=== PATIENT | male | born 1955 | race Caucasian/White ===

== ENCOUNTER 2016-12-03 20:18 | Emergency (ER) | payer MEDICAID, OTHER ==
[~2016-12-03 20:18] MED LIST: ALEV220C2 PO; LEVO500T PO; PERCOCET PO; SENN8.6T7 PO
[2016-12-03] MEDS ORDERED: IBUPROFEN 600 MG TAB As Ordered ONE (22:17)
[2016-12-03] MEDS ORDERED: MOXIFLOXACIN 400 MG TAB As Ordered ONE (22:17)
[2016-12-03] MEDS ORDERED: ALBUTEROL 90 MCG/ACT 8GM HFA INHALER As Ordered ONE (22:17)
--- NOTE | 2016-12-03 22:28 | EDDOCDS ---
Physician Documentation [facility] Name: Jg Hsu Age: 61 yrs Sex: Male : 1955 Arrival Date: 12/03/2016 Time: 20:18 Bed 13 Private MD: Finesse Gibbons A. Disposition: 12/03/16 22:14 Discharged to Home/Self Care. Impression: Acute bronchitis, Cough. - Condition is Stable. - Discharge Instructions: Acute Bronchitis, Cough, Adult. - Prescriptions for Ibuprofen 600 mg Oral Tablet - take 1 tablet by ORAL route every 6 hours As needed take with food; 30 tablet. Moxifloxacin 400 mg Oral Tablet - take 1 tablet by ORAL route once daily; 7 tablet. Mucinex 600 mg - take 1 tablet by ORAL route 2 times per day; 30 tablet. - Medication Reconciliation, Local Pharmacy Hours form. - Follow up: Finesse Gibbons; When: 4 - 5 days; Reason: Recheck today's complaints, Continuance of care. - Problem is an ongoing problem. - Symptoms are unchanged. - Notes: albuteral 2 puffs every 4 hours as needed cough/short of breath Historical: - Allergies: No known drug Allergies; - Home Meds: 1. none - PMHx: bulging disc; - PSHx: Carpal Tunnel Repair- Right; Prostatectomy; - Social history: Smoking status: Patient states former smoker of tobacco. No barriers to communication noted, The patient speaks fluent Armenian, Speaks appropriately for age. - Family history: Not pertinent. - : The pt / caregiver states he / she is not on anticoagulants. Home medication list is obtained from the patient. - Exposure Risk Screening:: None identified. Vital Signs: 12/03 20:20 BP 154 / 92; Pulse 108; Resp 20; Temp 101.3(O); Pulse Ox 98% ; Weight 99.79 kg / 220 cmb lbs (M); Height 5 ft. 8 in. (172.72 cm); Pain 9/10; 20:20 Body Mass Index 33.45 (99.79 kg, 172.72 cm) cmb MDM: 22:13 Ventolin Inhaler 2 puffs Inhalation once ordered. ke 22:13 Ibuprofen 600 mg PO once ordered. ke 22:13 Moxifloxacin 400 mg PO once ordered. ke Administered Medications: 22:23 Drug: Ventolin 2 puffs [Ventolin HFA 90 mcg/actuation aerosol inhaler (2 puffs)] Route: tm5 Inhalation; 22:23 Follow up: Response: Pt left department before re-evaluation is appropriate tm5 22:23 Drug: Ibuprofen 600 mg [ibuprofen 600 mg tablet (1 tabs)] Route: PO; tm5 22:23 Follow up: Response: Pt left department before re-evaluation is appropriate tm5 22:23 Drug: Moxifloxacin 400 mg [moxifloxacin 400 mg tablet (1 tabs)] Route: PO; tm5 22:23 Follow up: Response: Pt left department before re-evaluation is appropriate tm5 Signatures: Suresh Givens RN RN cz Elsner, Karl, FNP PRODUCTION SUPPORT DEVELOPER Liliana Arellano RN RN tm5 MTDD
--- NOTE | 2016-12-03 22:28 | EDDOCDS ---
Nurse's Notes [facility] Name: Jg Hsu Age: 61 yrs Sex: Male : 1955 Arrival Date: 12/03/2016 Time: 20:18 Bed 13 Private MD: Finesse Gibbons A. Diagnosis: Acute bronchitis;Cough Presentation: 12/03 20:40 Presenting complaint: Patient states: he has a sinus headache that started 10 days ago cz was seen at Urgent put on medications no relief with medications. also has bulging disc C-3 and is having head pressure and pain,.also has a sore throat. Risk Factors No acute neurological deficit is noted. Adult Sepsis Screening: The patient does not have new or worsening altered mentation. Patient's respiratory rate is less than 22. Systolic blood pressure is greater than 100. Patient has a qSOFA score of 0- Negative Sepsis Screen. Suicide/Homicide risk assessment- the patient denies having any suicidal and/or homicidal ideations and does not present with any other emotional, behavioral or mental health complaints. Status: Patient is not a funeral service licensee or dependent. Transition of care: patient was not received from another setting of care. 20:40 Acuity: RHODA Level 3 cz 20:40 Method Of Arrival: Walkin/Carried/Asstd cz Triage Assessment: 20:44 General: Appears uncomfortable. Pain: Pain currently is 10 out of 10 on a pain scale. cz Pt Declines HIV testing. 22:27 Musculoskeletal: Reports pain in neck. tm5 Historical: - Allergies: No known drug Allergies; - Home Meds: 1. none - PMHx: bulging disc; - PSHx: Carpal Tunnel Repair- Right; Prostatectomy; - Social history: Smoking status: Patient states former smoker of tobacco. No barriers to communication noted, The patient speaks fluent Arabic, Speaks appropriately for age. - Family history: Not pertinent. - : The pt / caregiver states he / she is not on anticoagulants. Home medication list is obtained from the patient. - Exposure Risk Screening:: None identified. Screenin:00 Screening information is obtained from the patient. Fall risk: No risks identified. tm5 Assistance ADL's: requires no assistance with activities of daily living. Abuse/DV Screen: The patient / caregiver reports he/she is: not in a situation that causes fear, pain or injury. Nutritional screening: No deficits noted. Advance Directives: There is no active DNR order. home support is adequate. Assessment: 22:00 General: Appears uncomfortable, Behavior is appropriate for age, cooperative. tm5 22:00 Pain: Location: neck & headache Pain currently is 6 out of 10 on a pain scale. Quality tm5 of pain is described as throbbing. Neurological: Level of Consciousness is awake, alert, Oriented to person, place, time, Reports weakness. Respiratory: Airway is patent Respiratory effort is even, unlabored, Respiratory pattern is regular, symmetrical, Breath sounds are clear bilaterally. GI: No deficits noted. : No deficits noted. Derm: Skin is pink, warm & dry. normal. Vital Signs: 20:20 BP 154 / 92; Pulse 108; Resp 20; Temp 101.3(O); Pulse Ox 98% ; Weight 99.79 kg (M); cmb Height 5 ft. 8 in. (172.72 cm); Pain 9/10; 20:20 Body Mass Index 33.45 (99.79 kg, 172.72 cm) cmb Vitals: 20:20 Log In Time: December 03, 2016 at 20:18. cmb ED Course: 20:19 Patient visited by Loni Al. cmb 20:19 Finesse Gibbons is Private Physician. cmb 20:19 Patient moved to Waiting cmb 20:22 Patient moved to Pre RCE cmb 20:42 Triage Initiated cz 21:50 Michele Pearl FNP is [facility]. ke 21:50 Patient visited by Michele Pearl FNP. ke 21:50 Patient visited by Michele Pearl FNP. ke 21:50 Patient moved to [facility] 22:00 The patient / caregiver is instructed regarding the plan of care and ED course. tm5 22:00 No IV's were initiated during this patient's visit. No procedures done that require tm5 assistance. 22:13 Finesse Gibbons is Referral Physician. ke 22:26 Patient visited by Liliana Garber RN. tm5 Administered Medications: 22:23 Drug: Ventolin 2 puffs [Ventolin HFA 90 mcg/actuation aerosol inhaler (2 puffs)] Route: tm5 Inhalation; 22:23 Follow up: Response: Pt left department before re-evaluation is appropriate tm5 22:23 Drug: Ibuprofen 600 mg [ibuprofen 600 mg tablet (1 tabs)] Route: PO; tm5 22:23 Follow up: Response: Pt left department before re-evaluation is appropriate tm5 22:23 Drug: Moxifloxacin 400 mg [moxifloxacin 400 mg tablet (1 tabs)] Route: PO; tm5 22:23 Follow up: Response: Pt left department before re-evaluation is appropriate tm5 Order Results: There are currently no results for this order. Outcome: 22:00 Discharge Assessment:. tm5 22:14 Discharge ordered by Provider. ke 22:26 Discharge Assessment: Patient awake, alert and oriented x 3. No cognitive and/or tm5 functional deficits noted. Patient verbalized understanding of disposition instructions. patient administered narcotics - no. The following High Risk Discharge criteria are identified: None. Discharged to home ambulatory. Condition: good Condition: stable. Discharge instructions given to patient, Instructed on discharge instructions, follow up and referral plans. medication usage, Demonstrated understanding of instructions, medications, Pt was receptive of discharge instructions/ teaching. Prescriptions given X 3. No special radiology studies were completed. Property :Personal belongings accompany Pt. 22:27 Patient left the ED. tm5 Signatures: Suresh Givens RN RN cz Michele Pearl, SKIDDER RUNNER SKIDDER RUNNER Loni Joe cmb Dhaval Desir,VIRAJ RN mb9 Liliana Garber RN RN tm5 Corrections: (The following items were deleted from the chart) 20:21 20:20 BP 154 / 92; Pulse 108bpm; Resp 20bpm; Pulse Ox 98%; Temp 101.3F Oral; Height 5 cmb ft. 8 in.; Pain 9/10; cmb 20:45 20:40 Presenting complaint: Patient states: he has a sinus headache that started 10 cz days ago was seen at Urgent put on medications no relief with medications. also has bulging disc C-3 and is having head pressure and pain cz MTDD
--- NOTE | 2016-12-05 23:28 | EDDOCDS ---
Physician Documentation [facility] Name: Jg Hsu Age: 61 yrs Sex: Male : 1955 Arrival Date: 12/03/2016 Time: 20:18 Bed 13 Private MD: Finesse Gibbons A. Disposition: 12/03/16 22:14 Discharged to Home/Self Care. Impression: Acute bronchitis, Cough. - Condition is Stable. - Discharge Instructions: Acute Bronchitis, Cough, Adult. - Prescriptions for Ibuprofen 600 mg Oral Tablet - take 1 tablet by ORAL route every 6 hours As needed take with food; 30 tablet. Moxifloxacin 400 mg Oral Tablet - take 1 tablet by ORAL route once daily; 7 tablet. Mucinex 600 mg - take 1 tablet by ORAL route 2 times per day; 30 tablet. - Medication Reconciliation, Local Pharmacy Hours form. - Follow up: Finesse Gibbons; When: 4 - 5 days; Reason: Recheck today's complaints, Continuance of care. - Problem is an ongoing problem. - Symptoms are unchanged. - Notes: albuteral 2 puffs every 4 hours as needed cough/short of breath Historical: - Allergies: No known drug Allergies; - Home Meds: 1. none - PMHx: bulging disc; - PSHx: Carpal Tunnel Repair- Right; Prostatectomy; - Social history: Smoking status: Patient states former smoker of tobacco. No barriers to communication noted, The patient speaks fluent Macedonian, Speaks appropriately for age. - Family history: Not pertinent. - : The pt / caregiver states he / she is not on anticoagulants. Home medication list is obtained from the patient. - Exposure Risk Screening:: None identified. Vital Signs: 12/03 20:20 BP 154 / 92; Pulse 108; Resp 20; Temp 101.3(O); Pulse Ox 98% ; Weight 99.79 kg / 220 cmb lbs (M); Height 5 ft. 8 in. (172.72 cm); Pain 9/10; 20:20 Body Mass Index 33.45 (99.79 kg, 172.72 cm) cmb MDM: 22:13 Ventolin Inhaler 2 puffs Inhalation once ordered. ke 22:13 Ibuprofen 600 mg PO once ordered. ke 22:13 Moxifloxacin 400 mg PO once ordered. ke 12/04 10:06 T-Sheet-- Draft Copy was scanned into [employer] and attached to record. gb Administered Medications: 12/03 22:23 Drug: Ventolin 2 puffs [Ventolin HFA 90 mcg/actuation aerosol inhaler (2 puffs)] Route: tm5 Inhalation; 22:23 Follow up: Response: Pt left department before re-evaluation is appropriate tm5 22:23 Drug: Ibuprofen 600 mg [ibuprofen 600 mg tablet (1 tabs)] Route: PO; tm5 22:23 Follow up: Response: Pt left department before re-evaluation is appropriate tm5 22:23 Drug: Moxifloxacin 400 mg [moxifloxacin 400 mg tablet (1 tabs)] Route: PO; tm5 22:23 Follow up: Response: Pt left department before re-evaluation is appropriate tm5 Signatures: Suresh Givens, RN RN Vijaya Burrows, Reg Reg gb Michele Pearl, STRADDLE TRUCK DRIVER STRADDLE TRUCK DRIVER Liliana Arellano RN RN tm5 The chart was reviewed and I authenticate all verbal orders and agree with the evaluation and treatment provided.Attachments: 12/04 10:06 T-Sheet-- Draft Copy gb Chart Complete MTDD
--- NOTE | 2016-12-05 23:28 | EDDOCDS ---
Physician Documentation [facility] Name: Jg Hsu Age: 61 yrs Sex: Male : 1955 Arrival Date: 12/03/2016 Time: 20:18 Bed 13 Private MD: Finesse Gibbons A. Disposition: 12/03/16 22:14 Discharged to Home/Self Care. Impression: Acute bronchitis, Cough. - Condition is Stable. - Discharge Instructions: Acute Bronchitis, Cough, Adult. - Prescriptions for Ibuprofen 600 mg Oral Tablet - take 1 tablet by ORAL route every 6 hours As needed take with food; 30 tablet. Moxifloxacin 400 mg Oral Tablet - take 1 tablet by ORAL route once daily; 7 tablet. Mucinex 600 mg - take 1 tablet by ORAL route 2 times per day; 30 tablet. - Medication Reconciliation, Local Pharmacy Hours form. - Follow up: Finesse Gibbons; When: 4 - 5 days; Reason: Recheck today's complaints, Continuance of care. - Problem is an ongoing problem. - Symptoms are unchanged. - Notes: albuteral 2 puffs every 4 hours as needed cough/short of breath Historical: - Allergies: No known drug Allergies; - Home Meds: 1. none - PMHx: bulging disc; - PSHx: Carpal Tunnel Repair- Right; Prostatectomy; - Social history: Smoking status: Patient states former smoker of tobacco. No barriers to communication noted, The patient speaks fluent Serbian, Speaks appropriately for age. - Family history: Not pertinent. - : The pt / caregiver states he / she is not on anticoagulants. Home medication list is obtained from the patient. - Exposure Risk Screening:: None identified. Vital Signs: 12/03 20:20 BP 154 / 92; Pulse 108; Resp 20; Temp 101.3(O); Pulse Ox 98% ; Weight 99.79 kg / 220 cmb lbs (M); Height 5 ft. 8 in. (172.72 cm); Pain 9/10; 20:20 Body Mass Index 33.45 (99.79 kg, 172.72 cm) cmb MDM: 22:13 Ventolin Inhaler 2 puffs Inhalation once ordered. ke 22:13 Ibuprofen 600 mg PO once ordered. ke 22:13 Moxifloxacin 400 mg PO once ordered. ke 12/04 10:06 T-Sheet-- Draft Copy was scanned into [employer] and attached to record. gb Administered Medications: 12/03 22:23 Drug: Ventolin 2 puffs [Ventolin HFA 90 mcg/actuation aerosol inhaler (2 puffs)] Route: tm5 Inhalation; 22:23 Follow up: Response: Pt left department before re-evaluation is appropriate tm5 22:23 Drug: Ibuprofen 600 mg [ibuprofen 600 mg tablet (1 tabs)] Route: PO; tm5 22:23 Follow up: Response: Pt left department before re-evaluation is appropriate tm5 22:23 Drug: Moxifloxacin 400 mg [moxifloxacin 400 mg tablet (1 tabs)] Route: PO; tm5 22:23 Follow up: Response: Pt left department before re-evaluation is appropriate tm5 Signatures: Suresh Givens, RN RN Vijaya Burrows, Reg Reg gb Michele Pearl, DEVELOPMENT TEAM LEAD DEVELOPMENT TEAM LEAD Liliana Arellano RN RN tm5 The chart was reviewed and I authenticate all verbal orders and agree with the evaluation and treatment provided.Attachments: 12/04 10:06 T-Sheet-- Draft Copy gb Chart Complete MTDD
--- NOTE | 2016-12-05 23:28 | EDDOCDS ---
Nurse's Notes [facility] Name: Jg Hsu Age: 61 yrs Sex: Male : 1955 Arrival Date: 12/03/2016 Time: 20:18 Bed 13 Private MD: Finesse Gibbons A. Diagnosis: Acute bronchitis;Cough Presentation: 12/03 20:40 Presenting complaint: Patient states: he has a sinus headache that started 10 days ago cz was seen at Urgent put on medications no relief with medications. also has bulging disc C-3 and is having head pressure and pain,.also has a sore throat. Risk Factors No acute neurological deficit is noted. Adult Sepsis Screening: The patient does not have new or worsening altered mentation. Patient's respiratory rate is less than 22. Systolic blood pressure is greater than 100. Patient has a qSOFA score of 0- Negative Sepsis Screen. Suicide/Homicide risk assessment- the patient denies having any suicidal and/or homicidal ideations and does not present with any other emotional, behavioral or mental health complaints. Status: Patient is not a automotive service manager or dependent. Transition of care: patient was not received from another setting of care. 20:40 Acuity: RHODA Level 3 cz 20:40 Method Of Arrival: Walkin/Carried/Asstd cz Triage Assessment: 20:44 General: Appears uncomfortable. Pain: Pain currently is 10 out of 10 on a pain scale. cz Pt Declines HIV testing. 22:27 Musculoskeletal: Reports pain in neck. tm5 Historical: - Allergies: No known drug Allergies; - Home Meds: 1. none - PMHx: bulging disc; - PSHx: Carpal Tunnel Repair- Right; Prostatectomy; - Social history: Smoking status: Patient states former smoker of tobacco. No barriers to communication noted, The patient speaks fluent Upper Sorbian, Speaks appropriately for age. - Family history: Not pertinent. - : The pt / caregiver states he / she is not on anticoagulants. Home medication list is obtained from the patient. - Exposure Risk Screening:: None identified. Screenin:00 Screening information is obtained from the patient. Fall risk: No risks identified. tm5 Assistance ADL's: requires no assistance with activities of daily living. Abuse/DV Screen: The patient / caregiver reports he/she is: not in a situation that causes fear, pain or injury. Nutritional screening: No deficits noted. Advance Directives: There is no active DNR order. home support is adequate. Assessment: 22:00 General: Appears uncomfortable, Behavior is appropriate for age, cooperative. tm5 22:00 Pain: Location: neck & headache Pain currently is 6 out of 10 on a pain scale. Quality tm5 of pain is described as throbbing. Neurological: Level of Consciousness is awake, alert, Oriented to person, place, time, Reports weakness. Respiratory: Airway is patent Respiratory effort is even, unlabored, Respiratory pattern is regular, symmetrical, Breath sounds are clear bilaterally. GI: No deficits noted. : No deficits noted. Derm: Skin is pink, warm & dry. normal. Vital Signs: 20:20 BP 154 / 92; Pulse 108; Resp 20; Temp 101.3(O); Pulse Ox 98% ; Weight 99.79 kg (M); cmb Height 5 ft. 8 in. (172.72 cm); Pain 9/10; 20:20 Body Mass Index 33.45 (99.79 kg, 172.72 cm) cmb Vitals: 20:20 Log In Time: December 03, 2016 at 20:18. cmb ED Course: 20:19 Patient visited by Loni Al. cmb 20:19 Finesse Gibbons is Private Physician. cmb 20:19 Patient moved to Waiting cmb 20:22 Patient moved to Pre RCE cmb 20:42 Triage Initiated cz 21:50 Michele Pearl FNP is [facility]. ke 21:50 Patient visited by Michele Pearl FNP. ke 21:50 Patient visited by Michele Pearl FNP. ke 21:50 Patient moved to [facility] 22:00 The patient / caregiver is instructed regarding the plan of care and ED course. tm5 22:00 No IV's were initiated during this patient's visit. No procedures done that require tm5 assistance. 22:13 Finesse Gibbons is Referral Physician. ke 22:26 Patient visited by Liliana Garber RN. tm5 12/04 10:06 T-Sheet-- Draft Copy was scanned into [employer] and attached to record. gb Administered Medications: 12/03 22:23 Drug: Ventolin 2 puffs [Ventolin HFA 90 mcg/actuation aerosol inhaler (2 puffs)] Route: tm5 Inhalation; 22:23 Follow up: Response: Pt left department before re-evaluation is appropriate tm5 22:23 Drug: Ibuprofen 600 mg [ibuprofen 600 mg tablet (1 tabs)] Route: PO; tm5 22:23 Follow up: Response: Pt left department before re-evaluation is appropriate tm5 22:23 Drug: Moxifloxacin 400 mg [moxifloxacin 400 mg tablet (1 tabs)] Route: PO; tm5 22:23 Follow up: Response: Pt left department before re-evaluation is appropriate tm5 Order Results: There are currently no results for this order. Outcome: 22:00 Discharge Assessment:. tm5 22:14 Discharge ordered by Provider. ke 22:26 Discharge Assessment: Patient awake, alert and oriented x 3. No cognitive and/or tm5 functional deficits noted. Patient verbalized understanding of disposition instructions. patient administered narcotics - no. The following High Risk Discharge criteria are identified: None. Discharged to home ambulatory. Condition: good Condition: stable. Discharge instructions given to patient, Instructed on discharge instructions, follow up and referral plans. medication usage, Demonstrated understanding of instructions, medications, Pt was receptive of discharge instructions/ teaching. Prescriptions given X 3. No special radiology studies were completed. Property :Personal belongings accompany Pt. 22:27 Patient left the ED. tm5 Signatures: Suresh Givens RN RN cz Vijaya Bull, Reg Reg gb Michele Pearl, APPLICATIONS DEVELOPMENT ANALYST APPLICATIONS DEVELOPMENT ANALYST Loni Joe cmb Dhaval Desir RN RN mb9 Liliana Garber RN RN tm5 Corrections: (The following items were deleted from the chart) 20:21 20:20 BP 154 / 92; Pulse 108bpm; Resp 20bpm; Pulse Ox 98%; Temp 101.3F Oral; Height 5 cmb ft. 8 in.; Pain 9/10; cmb 20:45 20:40 Presenting complaint: Patient states: he has a sinus headache that started 10 cz days ago was seen at Urgent put on medications no relief with medications. also has bulging disc C-3 and is having head pressure and pain cz Chart Complete MTDD
== END 2016-12-03 22:27 | disposition home or self-care (01) ==
LOC: M ED 20:18
DX: J40 Bronchitis, not specified as acute or chronic (principal); M51.9 Unspecified thoracic, thoracolumbar and lumbosacral intervertebral disc disorder; Z87.891 Personal history of nicotine dependence

== ENCOUNTER → 2017-03-12 | Outpatient (CLI) | payer OTHER ==
--- NOTE | 2017-03-12 16:05 | REP ---
RIGHT SHOULDER, THREE VIEWS: HISTORY: Pain. COMPARISON: 01/16/2015 There are no acute fracture or dislocation. There is narrowing of the acromioclavicular joint with associated osteophyte formation. IMPRESSION: Degenerative change as described above. Signed by Dann Cervantes MD 03/12/2017 04:07 P
== END ==
LOC: M WUC 15:39
PROVIDERS: ATTEND Physician Assistant
DX: M25.511 Pain in right shoulder (principal)

== ENCOUNTER 2017-03-27 15:45 | Emergency (ER) | payer OTHER ==
[~2017-03-27] VITALS: Ht 172.7 cm; Wt 100.2 kg
[2017-03-27 17:25] LABS: BASO % 0.5 % (0.0-1.0); EOS % 0.8 % (0.0-3.0); LARGE UNSTAINED CELL # 0.1 K/mm3 (0.0-0.4); LYMPH # 1.1 K/mm3 (1.5-4.5); LYMPH % 19.6 % (24.0-44.0); MEAN CORPUSCULAR HEMOGLOBIN 30.1 pg (27.0-33.0); MEAN CORPUSCULAR VOLUME 86.2 fl (80.0-96.0); MONO # 0.3 K/mm3 (0.0-0.8); MONO % 5.4 % (0.0-5.0); NEUTROPHILS # 3.9 K/mm3 (1.8-7.7); NEUTROPHILS % 71.7 % (36.0-66.0); PLATELET COUNT, AUTOMATED 240 k/mm3 (150-450); RED CELL DISTRIBUTION WIDTH 12.9 % (11.5-14.5); WHITE BLOOD COUNT 5.4 K/mm3 (4.0-10.0)
[2017-03-27 17:30] LABS: ANION GAP 10 MEQ/L (8-16); CALCIUM LEVEL 9.2 MG/DL (8.8-10.2); CARBON DIOXIDE LEVEL 24 MEQ/L (21-32); CHLORIDE LEVEL 107 MEQ/L (98-107); CREATININE FOR GFR 1.13 MG/DL (0.70-1.30); GLOMERULAR FILTRATION RATE > 60.0 (>49); GLUCOSE, FASTING 100 MG/DL (80-110); POTASSIUM SERUM 3.7 MEQ/L (3.5-5.1); SODIUM LEVEL 141 MEQ/L (136-145)
[2017-03-27 17:32] LABS: BLOOD UREA NITROGEN 16 MG/DL (7-18)
[2017-03-27] MEDS ORDERED: KETOROLAC 30 MG/ML VIAL (J1885) IV ONE (18:15)
--- NOTE | 2017-03-27 19:13 | REP ---
Portable chest x-ray: Sitting AP view: History: Chest pain. Comparison study: 12/27/2013. Findings: EKG monitoring electrodes overlie the chest. The lungs are symmetrically aerated and free of infiltrate. Cardiomediastinal silhouette is unremarkable. No bony abnormality is seen. Impression: No active disease. Signed by Trip Nolen MD 03/27/2017 08:47 P
[2017-03-27 21:28] VITALS: BP 125/73
[2017-03-27] MEDS ORDERED: ASPI81TA85 PO (21:44)
--- NOTE | 2017-03-28 09:35 | ECGEPIP ---
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
--- NOTE | 2017-03-28 09:39 | ECGEPIP ---
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
== END 2017-03-27 22:03 | disposition home or self-care (01) ==
LOC: M ED 18:02
DX: R07.89 Other chest pain (principal)

== ENCOUNTER → 2017-04-18 | Outpatient (CLI) | payer OTHER, SELFPAY ==
[~2017-04-18] MED LIST changes: +ASPI81TA85 PO
--- NOTE | 2017-04-18 14:31 | REP ---
CT CERVICAL SPINE WITHOUT CONTRAST: HISTORY: Radiculopathy. COMPARISON: MR 02/15/2016. There is no acute fracture or subluxation. A disc bulge is present at the C2-3 level. Disc bulges with associated osteophyte formation are present at the C3-4 through C6-7 levels. These findings produce minimal to moderate narrowing of the spinal canal. Uncinate process and/or facet hypertrophy are present at the C2-3 through C7-T1 levels. These findings produce minimal to severe narrowing of the neural foramina. The C2-3 through C6-7 intervertebral discs are decreased in height consistent with disc degeneration. There is loss of the normal lordotic curve. IMPRESSION: There is cervical spondylosis of the C2-3 through C7-T1 levels most significant at the C3-4 level where there is moderate narrowing of the spinal canal. Signed by Dann Cervantes MD 04/18/2017 02:47 P
== END ==
LOC: M RAD 13:11
PROVIDERS: ATTEND Physician Assistant
DX: M47.812 Spondylosis without myelopathy or radiculopathy, cervical region (principal); M47.813 Spondylosis without myelopathy or radiculopathy, cervicothoracic region

== ENCOUNTER → 2017-06-26 | Outpatient (REF) | payer OTHER | LOC: M LAB REF 20:05 | PROVIDERS: ATTEND Physician Assistant | DX: J02.9 Acute pharyngitis, unspecified (principal) ==

== ENCOUNTER → 2017-12-26 | Outpatient (CLI) | payer OTHER ==
[2017-12-26 15:21] LABS: BASO % 0.2 % (0.0-1.0); EOS % 0.1 % (0.0-3.0); HEMATOCRIT 40.3 % (42.0-52.0); HEMOGLOBIN 13.8 g/dl (14.0-18.0); IMMATURE GRANULOCYTE % 0.3 % (0-3.0); LYMPH # 0.7 10^3/uL (1.5-4.5); LYMPH % 6.9 % (24.0-44.0); MEAN CORPUSCULAR HEMOGLOBIN 29.1 pg (27.0-33.0); MEAN CORPUSCULAR HGB CONC 34.2 g/dl (32.0-36.5); MEAN CORPUSCULAR VOLUME 84.8 fl (80.0-96.0); MONO % 9.4 % (0.0-5.0); NEUTROPHILS # 8.8 10^3/uL (1.8-7.7); NEUTROPHILS % 83.1 % (36.0-66.0); PLATELET COUNT, AUTOMATED 233 10^3/uL (150-450); RED BLOOD COUNT 4.75 10^6/uL (4.30-6.10); RED CELL DISTRIBUTION WIDTH 12.9 % (11.5-14.5); WHITE BLOOD COUNT 10.6 10^3/uL (4.0-10.0)
[2017-12-26 15:34] LABS: ALBUMIN 3.4 GM/DL (3.2-5.2); ALBUMIN/GLOBULIN RATIO 0.97 (1.00-1.93); ALKALINE PHOSPHATASE 88 U/L (45-117); ALT/SGPT 31 U/L (12-78); ANION GAP 8 MEQ/L (8-16); AST/SGOT 23 U/L (7-37); BILIRUBIN,TOTAL 0.6 MG/DL (0.2-1.0); BLOOD UREA NITROGEN 17 MG/DL (7-18); CALCIUM LEVEL 8.7 MG/DL (8.8-10.2); CARBON DIOXIDE LEVEL 26 MEQ/L (21-32); CHLORIDE LEVEL 103 MEQ/L (98-107); GLOMERULAR FILTRATION RATE > 60.0 (>49); GLUCOSE, FASTING 104 MG/DL (70-100); POTASSIUM SERUM 4.2 MEQ/L (3.5-5.1); SODIUM LEVEL 137 MEQ/L (136-145); TOTAL PROTEIN 6.9 GM/DL (6.4-8.2)
[2017-12-26 18:29] LABS: ERYTHROCYTE SEDIMENTATION RATE 51 mm/hr (0-20)
== END ==
LOC: M WUC 13:55
DX: R10.814 Left lower quadrant abdominal tenderness (principal)
CPT/HCPCS: 80053

== ENCOUNTER → 2017-12-26 | Outpatient (CLI) | payer OTHER ==
[~2017-12-26] MED LIST changes: -ALEV220C2 PO; -ASPI81TA85 PO; +GASTROGRAFIN SOLUTION 30ML (Q9963) As Ordered; +ISOVUE-370 76% 100ML VIAL (Q9967) As Ordered; -LEVO500T PO; -PERCOCET PO; -SENN8.6T7 PO
== END ==
LOC: M RAD 15:59
DX: R93.5 Abnormal findings on diagnostic imaging of other abdominal regions, including retroperitoneum (principal)
CPT/HCPCS: Q9963

== ENCOUNTER → 2018-01-05 | Outpatient (CLI) | payer OTHER ==
[2018-01-05 14:24] LABS: APPEARANCE, URINE CLEAR (CLEAR); BACTERIA, URINE AUTO NEGATIVE (NEGATIVE); BILIRUBIN, URINE AUTO NEGATIVE (NEGATIVE); BLOOD, URINE BLOOD NEGATIVE (NEGATIVE); COLOR, URINE AMBER (YELLOW); GLUCOSE, URINE (UA) AUTO NEGATIVE (NEGATIVE); KETONE, URINE AUTO TRACE mg/dL (NEGATIVE); LEUKOCYTE ESTERASE, URINE AUTO 1+ (NEGATIVE); MUCUS, URINE SMALL (NEGATIVE); NITRITE, URINE AUTO NEGATIVE (NEGATIVE); PROTEIN, URINE AUTO NEGATIVE (NEGATIVE); RBC, URINE AUTO 2 /HPF (0-3); SQUAMOUS EPITHELIAL CELL UR AU 0 /HPF (0-6); WBC, URINE AUTO 9 /HPF (0-3)
== END ==
LOC: M SMT 10:01
DX: C61 Malignant neoplasm of prostate (principal)

== ENCOUNTER → 2018-01-12 | Outpatient (CLI) | payer OTHER ==
[2018-01-12 13:21] LABS: BASO # 0.1 10^3/uL (0.0-0.2); BASO % 1.1 % (0.0-1.0); EOS # 0.1 10^3/uL (0.0-0.50); EOS % 1.4 % (0.0-3.0); HEMATOCRIT 39.9 % (42.0-52.0); HEMOGLOBIN 13.3 g/dl (14.0-18.0); IMMATURE GRANULOCYTE % 1.3 % (0-3.0); LYMPH # 0.9 10^3/uL (1.5-4.5); LYMPH % 15.8 % (24.0-44.0); MEAN CORPUSCULAR HEMOGLOBIN 28.6 pg (27.0-33.0); MEAN CORPUSCULAR HGB CONC 33.3 g/dl (32.0-36.5); MEAN CORPUSCULAR VOLUME 85.8 fl (80.0-96.0); MONO # 0.4 10^3/uL (0.0-0.8); MONO % 7.7 % (0.0-5.0); NEUTROPHILS # 4.1 10^3/uL (1.8-7.7); NEUTROPHILS % 72.7 % (36.0-66.0); PLATELET COUNT, AUTOMATED 414 10^3/uL (150-450); RED BLOOD COUNT 4.65 10^6/uL (4.30-6.10); RED CELL DISTRIBUTION WIDTH 13.2 % (11.5-14.5); WHITE BLOOD COUNT 5.6 10^3/uL (4.0-10.0)
[2018-01-12 13:30] LABS: ALBUMIN 3.2 GM/DL (3.2-5.2); ALBUMIN/GLOBULIN RATIO 1.07 (1.00-1.93); ALKALINE PHOSPHATASE 69 U/L (45-117); ALT/SGPT 21 U/L (12-78); ANION GAP 5 MEQ/L (8-16); AST/SGOT 19 U/L (7-37); BILIRUBIN,TOTAL 0.3 MG/DL (0.2-1.0); BLOOD UREA NITROGEN 15 MG/DL (7-18); CALCIUM LEVEL 8.8 MG/DL (8.8-10.2); CARBON DIOXIDE LEVEL 28 MEQ/L (21-32); CHLORIDE LEVEL 108 MEQ/L (98-107); CHOLESTEROL LEVEL 136 MG/DL (<200); CHOLESTEROL RISK RATIO 2.472 (<5); CREATININE FOR GFR 0.91 MG/DL (0.70-1.30); GLOMERULAR FILTRATION RATE > 60.0 (>49); GLUCOSE, FASTING 106 MG/DL (70-100); HDL CHOLESTEROL 55 MG/DL (>40); LDL CHOLESTEROL 70.4 MG/DL (<100); NON-HDL-C 81 MG/DL; POTASSIUM SERUM 4.2 MEQ/L (3.5-5.1); SODIUM LEVEL 141 MEQ/L (136-145); TOTAL PROTEIN 6.2 GM/DL (6.4-8.2); TRIGLYCERIDES LEVEL 53 MG/DL (<150)
== END ==
LOC: M SMT 10:40
DX: Z00.00 Encounter for general adult medical examination without abnormal findings (principal)
CPT/HCPCS: 80053

== ENCOUNTER → 2018-01-26 | Outpatient (REF) | payer OTHER | LOC: M SMT 17:00 | DX: N32.89 Other specified disorders of bladder (principal) ==

== ENCOUNTER → 2018-02-19 | Outpatient (CLI) | payer OTHER ==
[2018-02-19 12:02] LABS: HEMATOCRIT 41.1 % (42.0-52.0); HEMOGLOBIN 13.8 g/dl (13.5-17.5); MEAN CORPUSCULAR HEMOGLOBIN 28.7 pg (27.0-33.0); MEAN CORPUSCULAR HGB CONC 33.6 g/dl (32.0-36.5); MEAN CORPUSCULAR VOLUME 85.4 fl (80.0-96.0); PLATELET COUNT, AUTOMATED 237 10^3/uL (150-450); RED BLOOD COUNT 4.81 10^6/uL (4.30-6.10); RED CELL DISTRIBUTION WIDTH 13.7 % (11.5-14.5); WHITE BLOOD COUNT 5.1 10^3/uL (4.0-10.0)
[2018-02-19 12:08] LABS: APPEARANCE, URINE CLEAR (CLEAR); BACTERIA, URINE AUTO NEGATIVE (NEGATIVE); BILIRUBIN, URINE AUTO NEGATIVE (NEGATIVE); BLOOD, URINE BLOOD NEGATIVE (NEGATIVE); COLOR, URINE YELLOW (YELLOW); GLUCOSE, URINE (UA) AUTO NEGATIVE (NEGATIVE); KETONE, URINE AUTO NEGATIVE (NEGATIVE); LEUKOCYTE ESTERASE, URINE AUTO NEGATIVE (NEGATIVE); MUCUS, URINE SMALL (NEGATIVE); NITRITE, URINE AUTO NEGATIVE (NEGATIVE); PROTEIN, URINE AUTO NEGATIVE (NEGATIVE); RBC, URINE AUTO 0 /HPF (0-3); SPECIFIC GRAVITY URINE AUTO 1.021 (1.002-1.035); SQUAMOUS EPITHELIAL CELL UR AU 0 /HPF (0-6); UROBILINOGEN, URINE AUTO 0.2 mg/dL (0.0-2.0); WBC, URINE AUTO 0 /HPF (0-3)
[2018-02-19 12:12] LABS: INR 0.88
[2018-02-19 12:13] LABS: PARTIAL THROMBOPLASTIN TIME 30.5 SECONDS (26.8-37.9)
[2018-02-19 12:36] LABS: ANION GAP 5 MEQ/L (8-16); BLOOD UREA NITROGEN 21 MG/DL (7-18); CALCIUM LEVEL 8.9 MG/DL (8.8-10.2); CARBON DIOXIDE LEVEL 29 MEQ/L (21-32); CHLORIDE LEVEL 107 MEQ/L (98-107); CREATININE FOR GFR 0.92 MG/DL (0.70-1.30); GLOMERULAR FILTRATION RATE > 60.0 (>49); GLUCOSE, FASTING 103 MG/DL (70-100); POTASSIUM SERUM 4.5 MEQ/L (3.5-5.1); SODIUM LEVEL 141 MEQ/L (136-145)
== END ==
LOC: M WUC 09:17
DX: N32.89 Other specified disorders of bladder (principal)
CPT/HCPCS: 80048

== ENCOUNTER → 2018-03-13 | Outpatient (REF) | payer OTHER | LOC: M SMT 13:22 | DX: N32.89 Other specified disorders of bladder (principal) ==

== ENCOUNTER → 2018-03-27 | Outpatient (CLI) | payer OTHER ==
[2018-03-27 13:48] LABS: PROSTATIC SPECIFIC AG MONITOR 0.64 NG/ML (< 4.0)
== END ==
LOC: M SMT 08:09
DX: C61 Malignant neoplasm of prostate (principal)
CPT/HCPCS: 84153

== ENCOUNTER → 2018-03-28 | Outpatient (CLI) | payer OTHER | LOC: M WUC 14:10 | DX: S60.454A Superficial foreign body of right ring finger, initial encounter (principal); X58.XXXA Exposure to other specified factors, initial encounter; Y92.89 Other specified places as the place of occurrence of the external cause | CPT/HCPCS: 73140 ==

== ENCOUNTER 2018-04-20 07:42 | Day surgery (SDC) | payer OTHER ==
[2018-04-20] MEDS: NS 1,000 ML IV (08:00)
[2018-04-20] MEDS ORDERED: PROPOFOL 200 MG/20 ML VIAL As Ordered (09:00)
[2018-04-20] MEDS ORDERED: LIDOCAINE 2% INJ 100 MG/5 ML SDV (FOR ANES.) As Ordered (09:00)
== END 2018-04-20 10:41 | disposition home or self-care (01) ==
LOC: M OPP 07:42
DX: Z86.010 Personal history of colon polyps (principal); K57.32 Diverticulitis of large intestine without perforation or abscess without bleeding; D12.3 Benign neoplasm of transverse colon; D12.2 Benign neoplasm of ascending colon; D12.4 Benign neoplasm of descending colon; K64.0 First degree hemorrhoids; M19.90 Unspecified osteoarthritis, unspecified site; Z85.46 Personal history of malignant neoplasm of prostate; Z92.3 Personal history of irradiation; R06.83 Snoring; Z87.891 Personal history of nicotine dependence
CPT/HCPCS: 45385

== ENCOUNTER → 2018-05-04 | Outpatient (CLI) | payer OTHER ==
[2018-05-07 00:07] LABS: TESTOSTERONE TOTAL FOR T&D < 3.0 ng/dL (264-916)
== END ==
LOC: M SMT 11:28
DX: C61 Malignant neoplasm of prostate (principal)

== ENCOUNTER → 2018-10-28 | Outpatient (CLI) | payer OTHER ==
[2018-10-28 14:48] LABS: PROSTATIC SPECIFIC AG MONITOR 0.5 NG/ML (< 4.0)
== END ==
LOC: M SMT 08:45
DX: C61 Malignant neoplasm of prostate (principal)
CPT/HCPCS: 84153

== ENCOUNTER → 2018-11-06 | Outpatient (CLI) | payer OTHER ==
[~2018-11-06] MED LIST changes: +ALEV220C2 PO; +ASPI81TA85 PO; +CIPR500T3 PO; -GASTROGRAFIN SOLUTION 30ML (Q9963) As Ordered; -ISOVUE-370 76% 100ML VIAL (Q9967) As Ordered; +LEVO500T PO; +PERCOCET PO; +SENN8.6T7 PO; +TYLE650T35 PO
[2018-11-06 13:38] LABS: BLOOD UREA NITROGEN 21 MG/DL (7-18); CALCIUM LEVEL 9.3 MG/DL (8.8-10.2); CARBON DIOXIDE LEVEL 29 MEQ/L (21-32); CHLORIDE LEVEL 103 MEQ/L (98-107); GLOMERULAR FILTRATION RATE > 60.0 (>49); GLUCOSE, FASTING 92 MG/DL (70-100); POTASSIUM SERUM 4.6 MEQ/L (3.5-5.1); SODIUM LEVEL 140 MEQ/L (136-145)
[2018-11-06 13:50] LABS: TESTOSTERONE 15 NG/DL (241-827)
--- NOTE | 2018-11-06 14:25 | REP ---
Chest two views HISTORY: Prostate carcinoma Comparison: 02/19/2018 Linear density is present in the left lower lobe consistent with scarring. The right lung is clear. The heart is normal in size. The pulmonary vasculature is normal in appearance. The bony structure is intact. IMPRESSION: No acute disease. Electronically Signed by Dann Cervantes MD 11/06/2018 02:17 P
== END ==
LOC: M SMT 10:57
PROVIDERS: ATTEND Nurse Practitioner Women's Health
DX: R97.21 Rising PSA following treatment for malignant neoplasm of prostate (principal); Z85.46 Personal history of malignant neoplasm of prostate

== ENCOUNTER → 2018-11-20 | Outpatient (CLI) | payer OTHER ==
--- NOTE | 2018-11-20 14:48 | REP ---
WHOLE BODY RADIONUCLIDE BONE SCAN: HISTORY: Rising PSA. Prostate malignancy. COMPARISON STUDY: December 23, 2013. TECHNIQUE: 22.0 mCi technetium 99m MDP is injected and standard whole body bone scan imaging was acquired. SCINTIGRAPHIC FINDINGS: There is a new focus of intense increased uptake in the left iliac bone. This is suspicious for a skeletal metastasis. No other new skeletal focus of abnormal activity. There is uptake in bilateral kidneys and in the urinary bladder. Mild osteoarthritic uptake is seen in the acromioclavicular joints and there is mild degenerative uptake in the cervical spine as before. 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 Electronically Signed by Trip Nolen MD 11/20/2018 07:19 P
== END ==
LOC: M RAD 09:15
PROVIDERS: ATTEND Nurse Practitioner Women's Health
DX: R97.21 Rising PSA following treatment for malignant neoplasm of prostate (principal); C61 Malignant neoplasm of prostate
CPT/HCPCS: 78306; A9503

== ENCOUNTER → 2018-12-08 | Outpatient (CLI) | payer OTHER ==
--- NOTE | 2018-12-09 06:00 | REP ---
Clinical: Contusion. Pain with recent fall. Technique: AP, lateral, flexion/extension, bilateral oblique, open-mouth views of the cervical spine Findings: Advanced multilevel degenerative disc osteophyte complexes are noted throughout the cervical spine. Alignment is maintained. No acute fracture / compression injury or subluxation. Prevertebral soft tissues are normal. Uncovertebral hypertrophy appears to narrow the neural foramen. Open mouth view demonstrates normal C1-C2 articulation and odontoid process. Impression: Advanced multilevel spondylosis. No acute fracture / compression injury or subluxation. Electronically Signed by Obinna Amaral MD 12/09/2018 05:52 A
--- NOTE | 2018-12-09 06:07 | REP ---
Clinical: Contusion/fall . Technique: AP, lateral, bilateral oblique views of the right elbow. Findings: No acute fracture or dislocation is appreciated. Joint spaces and surrounding soft tissues appear normal. Lateral view demonstrates normal positioning to the anterior and posterior fat pads without evidence for effusion/hemarthrosis. No subcutaneous emphysema or foreign body identified. Impression: Normal the right elbow radiographs. Electronically Signed by Obinna Amaral MD 12/09/2018 05:59 A
== END ==
LOC: M WUC 15:38
PROVIDERS: ATTEND Physician Assistant
DX: S16.1XXA Strain of muscle, fascia and tendon at neck level, initial encounter (principal); S50.01XA Contusion of right elbow, initial encounter; M47.892 Other spondylosis, cervical region; X58.XXXA Exposure to other specified factors, initial encounter; Y92.9 Unspecified place or not applicable

== ENCOUNTER → 2018-12-16 | Outpatient (CLI) | payer OTHER ==
[~2018-12-16] MED LIST changes: +ISOVUE-370 76% 100ML VIAL (Q9967) As Ordered ONE
--- NOTE | 2018-12-16 11:10 | REP ---
Clinical: History of prostate cancer. Technique: Axial contrast enhanced images from the lung bases to the pubic symphysis using 100 ml Isovue 370 intravenous contrast material with precontrast and delayed images of the abdomen as well as coronal and sagittal re-formations. Comparison: 12/26/2017. Findings: Lung bases are clear. Visualized heart and pericardium normal. Fatty infiltration to the liver noted without focal hepatic lesion. Spleen, pancreas, gallbladder, bilateral adrenal glands and kidneys are normal. The enteric system is without obstruction or acute inflammatory process. A 1.5 cm linear foreign body is identified within the cecum of uncertain significance or etiology (images 76 - 82). Pelvis demonstrates collapsed normal bladder and evidence for prior prostatectomy. Small fat containing left inguinal hernia noted. No ascites. No free air. No adenopathy. Abdominal aorta without aneurysm or dissection. Musculoskeletal structures demonstrate stable degenerative changes. There is a new 2 cm sclerotic round lesion in the left iliac bone (image 98) which is highly suspicious for metastatic focus. Impression: 1. 2 cm sclerotic focus in the left iliac bone consistent with new metastatic focus. 2. No further acute abdominopelvic pathology appreciated.. 3. A 1.5 cm linear foreign body is identified at the cecum may represent a previously ingested height and should be correlated clinically. Electronically Signed by Obinna Amaral MD 12/16/2018 11:01 A
== END ==
LOC: M RAD 10:29
PROVIDERS: ATTEND Nurse Practitioner Women's Health
DX: C61 Malignant neoplasm of prostate (principal); R97.21 Rising PSA following treatment for malignant neoplasm of prostate; M89.9 Disorder of bone, unspecified
CPT/HCPCS: 74178; Q9967

== ENCOUNTER → 2019-03-05 | Outpatient (CLI) | payer OTHER ==
[~2019-03-05] MED LIST changes: +DIAZ5TAB PO; -ISOVUE-370 76% 100ML VIAL (Q9967) As Ordered ONE; +OXYC1TAB23 PO; -PERCOCET PO; +PROC10TA4 PO; +XTAN40CA PO
== END ==
LOC: M RAD 09:29
PROVIDERS: ATTEND Internal Medicine Hematology & Oncology
DX: K08.9 Disorder of teeth and supporting structures, unspecified (principal)

== ENCOUNTER 2019-06-14 07:41 | Day surgery (SDC) | payer OTHER ==
[~2019-06-14] VITALS: Ht 172.7 cm; Wt 108.0 kg
[~2019-06-14 07:41] MED LIST changes: +LIDOCAINE 2% INJ 100 MG/5 ML SDV (FOR ANES.) As Ordered ONE; +NS 1,000 ML IV ONE; +PROPOFOL 200 MG/20 ML VIAL As Ordered ONE; +hormone
--- NOTE | 2019-06-14 10:04 | ROOR ---
Patient Name: Jg Hsu Procedure Date: 06/14/2019 9:20 AM Date of : 1955 Age: 64 Room: [facility] Gender: Male Note Status: Finalized Procedure: Total Colonoscopy to Cecum + Biopsy Polypectomy Indications: High risk colon cancer surveillance: Personal history of colonic polyps, Last colonoscopy: 2017 Providers: Evin Linton MD Referring MD: Finesse Gibbons MD Requesting Provider: Medicines: Monitored Anesthesia Care Complications: No immediate complications. Procedure: Pre-Anesthesia Assessment: - The heart rate, respiratory rate, oxygen saturations, blood pressure, adequacy of pulmonary ventilation, and response to care were monitored throughout the procedure. The Colonoscope was introduced through the anus and advanced to the cecum, identified by appendiceal orifice and ileocecal valve. The colonoscopy was performed without difficulty. The patient tolerated the procedure well. The quality of the bowel preparation was excellent. Findings: The perianal and digital rectal examinations were normal. Non-bleeding internal hemorrhoids were found during retroflexion. The hemorrhoids were small and Grade I (internal hemorrhoids that do not prolapse). A localized area of mildly altered vascular mucosa was found in the rectum. A small polyp was found in the transverse colon. The polyp was sessile. The polyp was removed with a jumbo cold forceps. Resection and retrieval were complete. A small polyp was found in the proximal ascending colon. The polyp was + retained clip. The polyp was removed with a jumbo cold forceps. Resection and retrieval were complete. No other significant abnormalities were identified in a careful examination of the remainder of the colon. Multiple small-mouthed diverticula were found in the recto-sigmoid colon and sigmoid colon. The exam was otherwise without abnormality. Impression: - Non-bleeding internal hemorrhoids. - Altered vascular mucosa in the rectum. - One small polyp in the transverse colon, removed with a jumbo cold forceps. Resected and retrieved. - One small polyp in the proximal ascending colon, removed with a jumbo cold forceps. Resected and retrieved. - Diverticulosis in the recto-sigmoid colon and in the sigmoid colon. - The examination was otherwise normal. - The exam was otherwise normal to the cecum. - Radiation proctitis. Recommendation: - Patient has a contact number available for emergencies. The signs and symptoms of potential delayed complications were discussed with the patient. Return to normal activities tomorrow. Written discharge instructions were provided to the patient. - High fiber diet. - Discharge patient to home. - Continue present medications. - Await pathology results. - Telephone GI clinic for pathology results in 1 week. - Repeat colonoscopy in 5 years for surveillance based on pathology results. - Return to referring physician. - Check Portal Online for Path Results.([email or web address] - The findings and recommendations were discussed with the patient's family. Evin Linton MD Evin Linton MD 06/14/2019 10:04:13 AM Electronically signed by Evin Linton MD Number of Addenda: 0 Note Initiated On: 06/14/2019 9:20 AM Estimated Blood Loss: Estimated blood loss: none.
[2019-06-14 10:22] VITALS: BP 161/84
== END 2019-06-14 10:23 | disposition home or self-care (01) ==
LOC: M OPP 07:41
PROVIDERS: ATTEND Internal Medicine Gastroenterology
DX: Z86.010 Personal history of colon polyps (principal); D37.4 Neoplasm of uncertain behavior of colon; C61 Malignant neoplasm of prostate; K64.0 First degree hemorrhoids; K62.89 Other specified diseases of anus and rectum; D12.3 Benign neoplasm of transverse colon; D12.2 Benign neoplasm of ascending colon; K57.30 Diverticulosis of large intestine without perforation or abscess without bleeding; K57.32 Diverticulitis of large intestine without perforation or abscess without bleeding; M19.90 Unspecified osteoarthritis, unspecified site; M54.89 Other dorsalgia; C79.51 Secondary malignant neoplasm of bone; Z92.3 Personal history of irradiation; R06.02 Shortness of breath; Z79.899 Other long term (current) drug therapy

== ENCOUNTER → 2019-07-30 | Outpatient (CLI) | payer OTHER ==
[~2019-07-30] MED LIST changes: -LIDOCAINE 2% INJ 100 MG/5 ML SDV (FOR ANES.) As Ordered ONE; -NS 1,000 ML IV ONE; -PROPOFOL 200 MG/20 ML VIAL As Ordered ONE
--- NOTE | 2019-07-30 15:03 | REP ---
WHOLE BODY BONE SCAN: Following the intravenous administration of 21.8 millicuries technetium 99m MDP, patient's whole body is imaged in the anterior and posterior projections with additional oblique and lateral views obtained. Comparison is made with prior study of 11/20/2018. Once again, there is a focus of increased uptake in the left iliac bone medially. This has mildly increased in size. No new lesions are seen. Uptake is otherwise homogeneous throughout the axial and appendicular skeleton. Renal and bladder activity are seen. IMPRESSION: Previously noted focus of increased uptake in the medial aspect of the left iliac bone is mildly increased in size. No new lesions are seen. Electronically Signed by Nitin Queen MD 07/30/2019 03:20 P
== END ==
LOC: M RAD 09:58
PROVIDERS: ATTEND Internal Medicine Hematology & Oncology
DX: C61 Malignant neoplasm of prostate (principal)
CPT/HCPCS: 78306; A9503

== ENCOUNTER → 2019-09-03 | Outpatient (CLI) | payer OTHER ==
--- NOTE | 2019-09-03 11:26 | REP ---
Four views left. Indication: Pain. Comparison: None. Findings: There is no fracture, subluxation or dislocation. Degenerative sequelae including narrowing of the PIP is present. No destructive osseous lesions are detected. Osseous alignment is maintained. Impression: No fracture. Electronically Signed by Mario Amor DO 09/03/2019 11:17 A
== END ==
LOC: M WUC 10:08
PROVIDERS: ATTEND Family Medicine
DX: M79.645 Pain in left finger(s) (principal)

== ENCOUNTER → 2020-01-26 | Outpatient (CLI) | payer OTHER ==
[~2020-01-26] MED LIST changes: +LUPR45IN IM; +OSEL75CA PO
--- NOTE | 2020-01-26 18:29 | REP ---
Lumbar spine five views: There are no comparisons. There is moderate degenerative disc disease at every lumbar level. There is bilateral L5 spondylolysis and grade 1 L5 spondylolisthesis. Alignment is otherwise normal. Vertebral body heights are normal. The pedicles and facets are unremarkable. The sacroiliac articulations are unremarkable. Impression: Multilevel degenerative disc disease. Bilateral L5 spondylolysis with grade 1 spondylolisthesis. Electronically Signed by Nitin Bolivar MD 01/26/2020 06:20 P
--- NOTE | 2020-01-26 18:34 | REP ---
Right hip two-view : There is no fracture or dislocation. Mineralization and joint spaces are normal. There are no calcifications or foreign bodies. Impression: Negative Right hip . Electronically Signed by Nitin Bolivar MD 01/26/2020 06:25 P
== END ==
LOC: M WUC 11:26
PROVIDERS: ATTEND Family Medicine
DX: M51.36 Other intervertebral disc degeneration, lumbar region (principal); M43.16 Spondylolisthesis, lumbar region; M54.41 Lumbago with sciatica, right side

== ENCOUNTER 2020-02-10 07:57 | Emergency (ER) | payer OTHER ==
[~2020-02-10] VITALS: Ht 172.7 cm; Wt 115.9 kg
[2020-02-10] MEDS ORDERED: MECLIZINE 25 MG TABLET PO ONE (08:15)
[2020-02-10 08:31] LABS: BASO % 0.6 % (0.0-1.0); EOS % 0.8 % (0.0-3.0); HEMATOCRIT 40.7 % (42.0-52.0); HEMOGLOBIN 13.7 g/dl (13.5-17.5); LYMPH # 1.2 10^3/uL (1.5-5.0); LYMPH % 21.9 % (24.0-44.0); MEAN CORPUSCULAR HEMOGLOBIN 28.4 pg (27.0-33.0); MEAN CORPUSCULAR HGB CONC 33.7 g/dl (32.0-36.5); MEAN CORPUSCULAR VOLUME 84.3 fl (80.0-96.0); MONO # 0.4 10^3/uL (0.0-0.8); MONO % 6.6 % (0.0-5.0); NEUTROPHILS # 3.7 10^3/uL (1.5-8.5); NEUTROPHILS % 69.5 % (36.0-66.0); PLATELET COUNT, AUTOMATED 255 10^3/uL (150-450); RED BLOOD COUNT 4.83 10^6/uL (4.30-6.10); WHITE BLOOD COUNT 5.3 10^3/uL (4.0-10.0)
[2020-02-10 09:03] LABS: ALBUMIN 3.5 GM/DL (3.2-5.2); ALT/SGPT 26 U/L (12-78); BILIRUBIN,DIRECT 0.1 MG/DL (0.0-0.2); BILIRUBIN,TOTAL 0.4 MG/DL (0.2-1.0); BLOOD UREA NITROGEN 13 MG/DL (7-18); CALCIUM LEVEL 8.7 MG/DL (8.8-10.2); CARBON DIOXIDE LEVEL 23 MEQ/L (21-32); CHLORIDE LEVEL 106 MEQ/L (98-107); CK-MB VALUE MASS < 1.0 NG/ML (<3.6); CPK CREATINE PHOSPHOKINASE 101 U/L (39-308); CREATININE FOR GFR 0.81 MG/DL (0.70-1.30); GLOMERULAR FILTRATION RATE > 60.0 (>49); GLUCOSE, FASTING 107 MG/DL (70-100); MB/CK RELATIVE INDEX 0.99 (< OR =4); POTASSIUM SERUM 4.6 MEQ/L (3.5-5.1); SODIUM LEVEL 138 MEQ/L (136-145); TOTAL PROTEIN 6.9 GM/DL (6.4-8.2); TROPONIN I < 0.02 NG/ML (< 0.10)
--- NOTE | 2020-02-10 09:04 | REP ---
PORTABLE CHEST X-RAY: SINGLE VIEW. HISTORY: Chest pain. COMPARISON CHEST X-RAY: November 06, 2018. FINDINGS: EKG monitoring electrodes overlie the chest. There is minimal linear fibrosis in the left base unchanged. There is a possible nodular density overlying the left anterior 4th rib, 7 mm in greatest diameter. Remaining lung soto are clear. Pleural angles are sharp. Heart is not enlarged. Pulmonary vasculature is not increased. IMPRESSION: Possible 7 mm pulmonary nodule left perihilar region. Otherwise no acute cardiopulmonary disease. Consider chest CT study. Electronically Signed by Trip Nolen MD 02/10/2020 11:04 A
--- NOTE | 2020-02-10 09:35 | REP ---
CT BRAIN WITHOUT CONTRAST: HISTORY: Vertigo. No comparison CT study. 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 Bone window settings demonstrate an intact bony calvarium. There is some vascular calcification in the distal internal carotid arteries bilaterally. On soft tissue window settings, there is minimal generalized volume loss. Small vessel changes are seen in the periventricular white matter mild in degree. There is no evidence of intracranial hemorrhage. No extra-axial fluid collection is seen. There is no evidence of infarct or mass. IMPRESSION: No acute intracranial lesion. Mild small vessel changes. Vascular calcification. Electronically Signed by Trip Nolen MD 02/10/2020 11:04 A
[2020-02-10] MEDS ORDERED: MECL1TAB31 PO (10:30)
[2020-02-10] MEDS ORDERED: [UNRECOGNIZED DRUG - OTHER] (10:32)
[2020-02-10 11:18] VITALS: BP 155/70
--- NOTE | 2020-02-10 15:47 | ED PDOC ---
Post-Departure Follow-Up dr dailey faxed formal report of cxr for fu Jorgito Schmitz MD Feb 10, 2020 15:47
--- NOTE | 2020-02-12 08:25 | ECGEPIP ---
[facility] - ED Test Date: 2020-02-10 Pat Name: ABIGAIL NESBITT Department: Room: - Gender: Male Radar Operator: carlso manuel gutierrez : 1955 Requested By: Peace Jara Order Number: [id number] Reading MD: Peace Jara Measurements Intervals [place] Rate: 62 P: 10 NM: 181 QRS: 20 QRSD: 98 T: 56 QT: 398 QTc: 405 Interpretive Statements SINUS RHYTHM NSTTW abnormalities SIMILAR 03/27/17 Electronically Signed on 02-12-2020 8:25:11 EDT by Peace Jara
[2020-02-14] MEDS ORDERED: XTAN40CA PO (12:45)
== END 2020-02-10 11:24 | disposition home or self-care (01) ==
LOC: EDBD 07:57 → M ED 07:57
DX: H81.399 Other peripheral vertigo, unspecified ear (principal); R91.8 Other nonspecific abnormal finding of lung field; C61 Malignant neoplasm of prostate; C79.51 Secondary malignant neoplasm of bone; Z79.899 Other long term (current) drug therapy; Z87.891 Personal history of nicotine dependence

== ENCOUNTER → 2020-02-25 | Outpatient (CLI) | payer OTHER ==
[~2020-02-25] MED LIST changes: +MECL1TAB31 PO; +[UNRECOGNIZED DRUG - OTHER]
--- NOTE | 2020-02-25 14:13 | REP ---
REASON: Followup possible pulmonary nodule suspected on prior portable examination of the chest 02/10/2020 which was reviewed. The only prior chest CT for comparison is 12/23/2013 which has been reviewed. The mediastinum and pulmonary yaakov are unchanged. There is no mass or adenopathy. There are no pleural or pericardial effusions. There is no change in the imaged upper abdomen or imaged osseous structures. Evaluation of the lung soto shows no new abnormal nodules, masses, opacities and no significant change compared to the prior chest CT. A small area of calcifying pleural plaque formation is seen along the left anterolateral chest wall status quo. IMPRESSION: Stable CT examination of the chest as described above. Electronically Signed by Livan Olea DO 02/25/2020 02:55 P
== END ==
LOC: M RAD 12:23
PROVIDERS: ATTEND Family Medicine
DX: R91.1 Solitary pulmonary nodule (principal); C61 Malignant neoplasm of prostate

== ENCOUNTER → 2020-03-15 | Outpatient (CLI) | payer OTHER ==
[2020-03-15 11:03] LABS: BASO % 0.6 % (0.0-1.0); EOS % 0.9 % (0.0-3.0); HEMATOCRIT 39.8 % (42.0-52.0); HEMOGLOBIN 13.3 g/dl (13.5-17.5); LYMPH # 1.5 10^3/uL (1.5-5.0); LYMPH % 31.9 % (24.0-44.0); MEAN CORPUSCULAR HGB CONC 33.4 g/dl (32.0-36.5); MEAN CORPUSCULAR VOLUME 83.8 fl (80.0-96.0); MONO # 0.4 10^3/uL (0.0-0.8); MONO % 8.9 % (0.0-5.0); NEUTROPHILS # 2.7 10^3/uL (1.5-8.5); NEUTROPHILS % 57.1 % (36.0-66.0); PLATELET COUNT, AUTOMATED 252 10^3/uL (150-450); RED BLOOD COUNT 4.75 10^6/uL (4.30-6.10); WHITE BLOOD COUNT 4.7 10^3/uL (4.0-10.0)
[2020-03-15 11:32] LABS: ALBUMIN 3.6 GM/DL (3.2-5.2); ALT/SGPT 28 U/L (12-78); BILIRUBIN,TOTAL 0.6 MG/DL (0.2-1.0); BLOOD UREA NITROGEN 14 MG/DL (7-18); CALCIUM LEVEL 8.8 MG/DL (8.8-10.2); CARBON DIOXIDE LEVEL 25 MEQ/L (21-32); CHLORIDE LEVEL 106 MEQ/L (98-107); GLOMERULAR FILTRATION RATE > 60.0 (>49); GLUCOSE, FASTING 87 MG/DL (70-100); POTASSIUM SERUM 4.1 MEQ/L (3.5-5.1); PROSTATIC SPECIFIC AG MONITOR 0.91 NG/ML (< 4.00); SODIUM LEVEL 137 MEQ/L (136-145); TOTAL PROTEIN 6.8 GM/DL (6.4-8.2)
== END ==
LOC: M LAB 10:26
PROVIDERS: ATTEND Internal Medicine Hematology
DX: C61 Malignant neoplasm of prostate (principal)

== ENCOUNTER → 2020-04-12 | Outpatient (CLI) | payer OTHER ==
[2020-04-12 09:22] LABS: BASO % 0.8 % (0.0-1.0); EOS # 0.1 10^3/uL (0.0-0.5); HEMATOCRIT 39.3 % (42.0-52.0); HEMOGLOBIN 13.6 g/dl (13.5-17.5); LYMPH # 1.5 10^3/uL (1.5-5.0); MEAN CORPUSCULAR HEMOGLOBIN 29.2 pg (27.0-33.0); MEAN CORPUSCULAR HGB CONC 34.6 g/dl (32.0-36.5); MEAN CORPUSCULAR VOLUME 84.3 fl (80.0-96.0); MONO # 0.4 10^3/uL (0.0-0.8); NEUTROPHILS % 59.8 % (36.0-66.0); PLATELET COUNT, AUTOMATED 269 10^3/uL (150-450); RED BLOOD COUNT 4.66 10^6/uL (4.30-6.10)
[2020-04-12 09:51] LABS: ALBUMIN 3.7 GM/DL (3.2-5.2); ALT/SGPT 24 U/L (12-78); BILIRUBIN,TOTAL 0.3 MG/DL (0.2-1.0); BLOOD UREA NITROGEN 14 MG/DL (7-18); CALCIUM LEVEL 9.3 MG/DL (8.8-10.2); CARBON DIOXIDE LEVEL 27 MEQ/L (21-32); CHLORIDE LEVEL 104 MEQ/L (98-107); CREATININE FOR GFR 0.93 MG/DL (0.70-1.30); GLOMERULAR FILTRATION RATE > 60.0 (>49); GLUCOSE, FASTING 99 MG/DL (70-100); POTASSIUM SERUM 4.4 MEQ/L (3.5-5.1); SODIUM LEVEL 139 MEQ/L (136-145); TOTAL PROTEIN 6.9 GM/DL (6.4-8.2)
== END ==
LOC: M LAB 08:33
PROVIDERS: ATTEND Internal Medicine Hematology
DX: C61 Malignant neoplasm of prostate (principal)

== ENCOUNTER → 2020-05-10 | Outpatient (CLI) | payer OTHER ==
[2020-05-10 09:08] LABS: BASO % 0.6 % (0.0-1.0); EOS # 0.1 10^3/uL (0.0-0.5); EOS % 1.3 % (0.0-3.0); HEMOGLOBIN 13.1 g/dl (13.5-17.5); LYMPH # 1.3 10^3/uL (1.5-5.0); LYMPH % 27.3 % (24.0-44.0); MEAN CORPUSCULAR HEMOGLOBIN 28.5 pg (27.0-33.0); MEAN CORPUSCULAR HGB CONC 33.6 g/dl (32.0-36.5); MEAN CORPUSCULAR VOLUME 84.8 fl (80.0-96.0); MONO # 0.4 10^3/uL (0.0-0.8); MONO % 8.6 % (0.0-5.0); NEUTROPHILS % 61.8 % (36.0-66.0); PLATELET COUNT, AUTOMATED 256 10^3/uL (150-450); WHITE BLOOD COUNT 4.8 10^3/uL (4.0-10.0)
[2020-05-10 10:00] LABS: ALBUMIN 3.4 GM/DL (3.2-5.2); ALT/SGPT 23 U/L (12-78); BILIRUBIN,TOTAL 0.3 MG/DL (0.2-1.0); BLOOD UREA NITROGEN 17 MG/DL (7-18); CALCIUM LEVEL 9.1 MG/DL (8.8-10.2); CARBON DIOXIDE LEVEL 30 MEQ/L (21-32); CHLORIDE LEVEL 104 MEQ/L (98-107); CREATININE FOR GFR 0.86 MG/DL (0.70-1.30); GLOMERULAR FILTRATION RATE > 60.0 (>49); GLUCOSE, FASTING 94 MG/DL (70-100); POTASSIUM SERUM 4.5 MEQ/L (3.5-5.1); PROSTATIC SPECIFIC AG MONITOR 1.04 NG/ML (< 4.00); SODIUM LEVEL 139 MEQ/L (136-145); TOTAL PROTEIN 6.5 GM/DL (6.4-8.2)
== END ==
LOC: M LAB 08:25
PROVIDERS: ATTEND Internal Medicine Hematology
DX: C61 Malignant neoplasm of prostate (principal)

== ENCOUNTER → 2020-06-29 | Outpatient (CLI) | payer OTHER ==
[~2020-06-29] MED LIST changes: +ACET650T61 PO; -ASPI81TA85 PO; +ASPI81TA86 PO; +CALC1TAB63 PO; +HYDR25TAB PO; +PRED5TA PO; -TYLE650T35 PO
--- NOTE | 2020-08-26 10:41 | REP ---
LUMBOSACRAL SPINE SERIES: HISTORY: Low back pain for one week. History of bone mets. FINDINGS: 5-views of the lumbosacral spine performed. No compression fracture is seen. Once again, there is spondylolysis of the L5 with mildly anterior grade 1 spondylolisthesis of L5 on S1. This is stable. There is again slight retrolisthesis of L3 on L4 and L4 on L5, also unchanged. There is mild diffuse spurring. There is mild disc space narrowing and subchondral sclerosis at L1-2 through L4-5. There is sclerosis and spurring at the posterior facets in the lower lumbar spine. The posterior elements are intact. Spina bifida occulta is noted at L5. IMPRESSION: Stable degenerative changes as well as spondylolysis at L5 and mild associated anterior grade 1 spondylolisthesis of L5 on S1. No change since the prior study. No new compression fracture. MTDD
== END ==
LOC: M WUC 10:20
PROVIDERS: ATTEND Family Medicine
DX: M54.31 Sciatica, right side (principal)

== ENCOUNTER → 2020-07-19 | Outpatient (CLI) | payer OTHER ==
--- NOTE | 2020-07-19 08:17 | REPVR ---
PROCEDURE INFORMATION: Exam: MR Lumbar Spine Without Contrast. Exam date and time: 07/19/2020 7:23 AM Age: 65 years old Clinical indication: Sciatica; Right; Patient HX: PT has a HX of prostate CA and reported bone mets, pain in back now. ; Additional info: Sciatica right side TECHNIQUE: Imaging protocol: Multiplanar magnetic resonance images of the lumbar spine without intravenous contrast. COMPARISON: MRI-Spine, L.S. without con 05/08/2016 4:45 PM FINDINGS: Vertebrae: Mild anterolisthesis of L5 on S1 secondary to bilateral L5 pars interarticularis defects. Spinal cord: Conus at L1.. L1-L2: Mild disc desiccation changes with a broad central disc bulge. Mild encroachment on the spinal canal. No neural foraminal stenosis. L2-L3: Disc desiccation changes with a broad central disc bulge. No significant spinal canal stenosis. Mild encroachment on the right neural foramen. No left neural foraminal stenosis. L3-L4: Disc desiccation changes and bilateral facet arthropathy. No significant spinal canal stenosis. Mild encroachment on the left neural foramen. L4-L5: Disc desiccation changes and bilateral facet arthropathy. Stenosis of the bilateral neural foramina worse on the right. No significant spinal canal stenosis. L5-S1: Disc desiccation changes. Broad central disc bulge and bilateral facet hypertrophy. Stenosis of the bilateral neural foramina, worse on the right. Mild stenosis of the spinal canal. Soft tissues: Unremarkable. IMPRESSION: Mild stable anterolisthesis of L5 on S1. Multilevel degenerative disease and facet arthropathy. Stenosis of neural foramina at multiple levels most pronounced at L5-S1 on the right. Electronically signed by: Romain Lux On 07/19/2020 08:17:23 AM
== END ==
LOC: M RAD 06:16
PROVIDERS: ATTEND Family Medicine
DX: M43.16 Spondylolisthesis, lumbar region (principal); M54.31 Sciatica, right side

== ENCOUNTER → 2020-08-10 | Outpatient (CLI) | payer OTHER ==
[~2020-08-10] MED LIST changes: +GASTROGRAFIN SOLUTION 30ML (Q9963) As Ordered ONE; +ISOVUE-370 76% 100ML VIAL As Ordered ONE
--- NOTE | 2020-08-18 10:31 | REP ---
HISTORY OF PROSTATE CANCER WITH HIP PAIN COMPARISON: 07/30/2019. TECHNIQUE: Following the intravenous administration of 22 mCi Technetium-99m MDP, the patients whole body is imaged in the anterior and posterior projections with additional oblique and lateral views obtained. FINDINGS: There is once again a focus of increased uptake in the left iliac bone medially. This has decreased in size and intensity. No new abnormal foci of increased uptake is seen in the remaining axial and appendicular skeleton. Renal and bladder activity are seen. IMPRESSION: Previously noted single focus of increased uptake in the iliac bone has decreased in size and intensity. No new abnormal uptake is seen in the axial or appendicular skeleton. MTDD
--- NOTE | 2020-08-18 10:32 | REP ---
CONTRAST ENHANCED CT ABDOMEN AND PELVIS CLINICAL: History of prostate cancer with hip pain. COMPARISON: 12/16/2018. TECHNIQUE: Axial contrast enhanced images from the lung bases to the pubic symphysis using oral (per protocol) and 100 mL Isovue-370 intravenous contrast material with delayed images of the abdomen, as well as coronal and sagittal reformations. FINDINGS: The lung bases demonstrate chronic interstitial changes. Visualized heart and pericardium are normal. Liver demonstrates small subcentimeter cysts in the posterior right lobe, which is too small to characterize, but remain stable. No further hepatic lesions are identified. Spleen, pancreas, gallbladder, bilateral adrenal glands, and kidneys are normal. The enteric system is without obstruction or acute inflammatory process. Pelvis demonstrates a normal bladder and evidence for prior prostatectomy. There is a 3.7 cm fat-containing left inguinal hernia. No ascites. No free air. No adenopathy. Abdominal aorta without aneurysm or dissection. The musculoskeletal structures demonstrate a 3.2 cm sclerotic focus in the left iliac bone increased in size from prior examination and consistent with a solitary metastatic lesion. There is evidence for spondylolysis at the L5-S1 level. IMPRESSION: * Sclerotic focus in the left iliac bone increased in size. No further metastatic lesions are identified. * Fat-containing left inguinal hernia. * No further acute abdominopelvic pathology appreciated. MTDD
== END ==
LOC: M RAD 09:56
PROVIDERS: ATTEND Internal Medicine Hematology & Oncology
DX: C61 Malignant neoplasm of prostate (principal); K76.89 Other specified diseases of liver; K40.90 Unilateral inguinal hernia, without obstruction or gangrene, not specified as recurrent; M25.559 Pain in unspecified hip
CPT/HCPCS: 74177; 78306; A9503; Q9963; Q9967

== ENCOUNTER → 2020-08-17 | Outpatient (CLI) | payer OTHER ==
[~2020-08-17] MED LIST changes: -GASTROGRAFIN SOLUTION 30ML (Q9963) As Ordered ONE; -ISOVUE-370 76% 100ML VIAL As Ordered ONE
--- NOTE | 2020-08-17 13:02 | RADONC.CN ---
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 He is seen today for consideration of palliative RT in the setting of recent back and right leg pain. Diagnosis/Treatment History Oncologic History 2013 diagnosed with prostate cancer treated initially with RP followed by adjuvant RT to 66.6 Gy in 37 fractions completed 08/19/14. PSA remained low until 2017 when it began to rise, he was placed on ADT, PSA responded but then ricardo. He was noted on restaging from November 2018 to have a solitary sclerotic left iliac bone metastasis. He was started Xtandi and ADT and his PSA subsequently responded and has remained low. Most recent PSA/testosterone were 1.18 and 18 respectively on 08/08/20. He is also on Xgeva Item Value Date Time Prostate Specific Antigen 1.18 NG/ML 08/08/20 1015 Total Testosterone 18 NG/DL L 08/08/[address] abdomen pelvis and bone scan from 08/10/20 reveal only the known left iliac metastasis which is stable in size and extent with prior studies. Interval History Has pain in the right leg emanating from the buttock travelling down to his ankles. Electrical shooting stabbing pain. Has limited mobility, however, is improving spontaneously. He is doing physical therapy. This pain was incited when he fell down stairs to avoid stepping on his cat. Denies any pain on the left side. Has multilevel spinal arthritis and disc disease. Also notes BAUTISTA, which has been worse in recent months. Former smoker. Past Medical History: History of a Neck injury Degenerative joint disease tubular adenoma colon diverticulosis Past Surgical History: robot assisted prostatectomy with pelvic lymph node dissection with post -operative radiation therapy carpal tunnel rlease Family History: Mother in her 70's she had a heart attack His father in his 70's he had prostate cancer Social History: former smoker does not abuse alcohol Allergies / Meds Allergies: Coded Allergies: No Known Allergies (Unverified , 02/11/18) Home Meds Active Scripts Calcium Carbonate/Vitamin D3 (Calcium 600-Vit D3 400 Tablet) 1 Each Tablet, 1 TAB PO BID for 30 Days, #60 TAB Prov:HOLLIS NOVOA MD 07/10/20 Enzalutamide (Xtandi) 40 Mg Cap, 4 CAP PO DAILY for 30 Days, #120 CAP 3 Refills TAKE 4 CAPS A DAY EVERY MORNING AT THE SAME TIME WITH OR WITHOUT FOOD. Prov:GINA ASTORGA MD 02/17/20 [Outpatient PT] No Conflict Check, for vestibular dysfunction, #1 Prov:Peace Jara MD 02/10/20 Reported Medications Leuprolide Acetate (Lupron Depot) 45 Mg Syringekit, 45 MG IM [id number], #10 INJ 01/18/20 Review of Systems Constitutional: Denies: Chills, Fever, Night Sweats Eyes: Denies: Pain, Vision change HEENT: Denies: Head Aches, Dysphagia, Sore Throat Skin: Denies: Rash, Lesions, Bruising Pulmonary: Reports: Dyspnea; Denies: Cough Cardiovascular: Denies: Chest Pain, Palpitations, Edema Gastrointestinal: Denies: Nausea, Vomiting, Abdominal Pain, Diarrhea Genitourinary: Denies: Dysuria, Frequency, Incontinence Hematologic: Denies: Bruising, Petecchia, Enlarged Lymph Nodes Musculoskeletal: Reports: Neck pain, Shoulder pain, Back pain, Leg pain, Foot pain, Joint pain; Denies: Joint sweling Neurological: Denies: Weakness, Numbness, Incoordination Psych: Reports: Mood Normal; Denies: Memory Issues, Thoughts of Self Harm Vital Signs Wt 247lb T 97.2 P 68 RR 20 BP 145/96 O2 96% General Exam: Positive: Alert, Cooperative, No Acute Distress Eye Exam: Positive: PERRLA, EOMI Neck Exam: Negative: Thyromegaly, Lymphadenopathy Chest Exam: Positive: Normal air movement; Negative: Rales, Rhonchi, Wheezing Heart Exam: Positive: Rate Normal, Regular Rhythm Abdomen Exam: Positive: Soft; Negative: Tenderness, Mass Extremity Exam: Negative: Edema, Tenderness, Other (No tenderness of hip musculature BL or of SI joints) Skin Exam: Positive: Nl turgor and temperature; Negative: Rash Neuro Exam: Positive: Normal Gait, Normal Speech, Cranial Nerves 3-12 NL Psych Exam: Positive: Mental status NL, Mood NL, Memory Intact Diagnostic and Laboratory Diagnostic Review Radiologic images, relevant labs and pathology reports were personally reviewed and discussed with Mr. Hsu. Assessment and Plan Impression Mr. Hsu is a 65 year old male with a history of [] who was referred to the Department of Radiation Oncology for consideration of []. Stage Prostate cancer M1b Stage IV, oligometastatic Performance Status ECOG 1 Plan We had an extensive discussion with Mr. Hsu regarding the diagnosis at hand and available therapeutic options. He has mCRPC with measurable disease confined to the left iliac sclerotic metastasis. This has not progressed since detection, does not have impending fracture and is not the source of his current pain which is likely emanating from lumbosacral nerve impingement from benign processes. His PSA is stable on ADT and Xtandi. He is receiving Xgeva as well. I see no indication for RT in his case given lack of pain attributable to the lesion and lack of biochemical progression on the current regimen. The role of aggressive local therapies such as SBRT, in oligometastatic DIVISION HEAD are not firmly established. If he had biochemical progression and desired to trial off of systemic therapy, then I would consider irradiating the solitary met with SBRT. This approach has been tested on the phase II ORIOLE trial with promising results on halting of biochemical progression with RT alone. As he is tolerating ADT + Xtandi he should stay on this course. If in the future he develops symptomatic bone metastases then I would be happy to assist with palliative RT or Xofigo therapy. For now he may follow with me as needed. We instructed the patient that if there were any questions,concerns or changes in clinical status in the interim to contact us. Recommendations No role for RT at this time In case of symptomatic progression and/or intolerance of systemic therapy I would be happy to revisit the potential role of RT in his care Follow up as needed SUZANNE SMITH MD Aug 17, 2020 13:02
== END ==
LOC: M ONCR 09:51
PROVIDERS: ATTEND General Practice
DX: C61 Malignant neoplasm of prostate (principal)

== ENCOUNTER → 2020-09-01 | Outpatient (CLI) | payer OTHER ==
[2020-09-01 14:33] LABS: BASO % 0.3 % (0.0-1.0); EOS # 0.1 10^3/uL (0.0-0.5); EOS % 1.2 % (0.0-3.0); HEMATOCRIT 38.6 % (42.0-52.0); HEMOGLOBIN 12.6 g/dl (13.5-17.5); LYMPH # 1.5 10^3/uL (1.5-5.0); LYMPH % 25.4 % (24.0-44.0); MEAN CORPUSCULAR HEMOGLOBIN 27.8 pg (27.0-33.0); MEAN CORPUSCULAR HGB CONC 32.6 g/dl (32.0-36.5); MEAN CORPUSCULAR VOLUME 85.2 fl (80.0-96.0); MONO # 0.6 10^3/uL (0.0-0.8); MONO % 9.1 % (0.0-5.0); NEUTROPHILS # 3.8 10^3/uL (1.5-8.5); NEUTROPHILS % 63.5 % (36.0-66.0); PLATELET COUNT, AUTOMATED 241 10^3/uL (150-450); RED BLOOD COUNT 4.53 10^6/uL (4.30-6.10)
[2020-09-01 15:01] LABS: ALBUMIN 3.5 GM/DL (3.2-5.2); ALT/SGPT 25 U/L (12-78); BILIRUBIN,TOTAL 0.3 MG/DL (0.2-1.0); BLOOD UREA NITROGEN 21 MG/DL (7-18); CALCIUM LEVEL 9.2 MG/DL (8.8-10.2); CARBON DIOXIDE LEVEL 26 MEQ/L (21-32); CHLORIDE LEVEL 108 MEQ/L (98-107); CREATININE FOR GFR 0.74 MG/DL (0.70-1.30); GLOMERULAR FILTRATION RATE > 60.0 (>49); GLUCOSE, FASTING 89 MG/DL (70-100); POTASSIUM SERUM 3.8 MEQ/L (3.5-5.1); SODIUM LEVEL 141 MEQ/L (136-145); TOTAL PROTEIN 6.6 GM/DL (6.4-8.2)
[2020-09-01 15:55] LABS: TESTOSTERONE 14 NG/DL (241-827)
== END ==
LOC: M LAB 13:54
PROVIDERS: ATTEND Internal Medicine Hematology & Oncology
DX: C61 Malignant neoplasm of prostate (principal)

== ENCOUNTER → 2020-09-29 | Outpatient (CLI) | payer OTHER ==
[2020-09-29 09:17] LABS: BASO % 0.6 % (0.0-1.0); EOS # 0.1 10^3/uL (0.0-0.5); EOS % 1.2 % (0.0-3.0); HEMOGLOBIN 12.5 g/dl (13.5-17.5); LYMPH # 1.4 10^3/uL (1.5-5.0); LYMPH % 28.8 % (24.0-44.0); MEAN CORPUSCULAR HEMOGLOBIN 27.6 pg (27.0-33.0); MEAN CORPUSCULAR HGB CONC 32.1 g/dl (32.0-36.5); MEAN CORPUSCULAR VOLUME 86.1 fl (80.0-96.0); MONO # 0.5 10^3/uL (0.0-0.8); MONO % 9.3 % (0.0-5.0); NEUTROPHILS % 59.7 % (36.0-66.0); PLATELET COUNT, AUTOMATED 255 10^3/uL (150-450); RED BLOOD COUNT 4.53 10^6/uL (4.30-6.10)
[2020-09-29 09:38] LABS: ALBUMIN 3.6 GM/DL (3.2-5.2); ALT/SGPT 22 U/L (12-78); BILIRUBIN,TOTAL 0.3 MG/DL (0.2-1.0); BLOOD UREA NITROGEN 17 MG/DL (7-18); CARBON DIOXIDE LEVEL 30 MEQ/L (21-32); CHLORIDE LEVEL 106 MEQ/L (98-107); CREATININE FOR GFR 0.87 MG/DL (0.70-1.30); GLOMERULAR FILTRATION RATE > 60.0 (>49); GLUCOSE, FASTING 86 MG/DL (70-100); POTASSIUM SERUM 4.4 MEQ/L (3.5-5.1); PROSTATIC SPECIFIC AG MONITOR 0.92 NG/ML (< 4.00); SODIUM LEVEL 142 MEQ/L (136-145); TOTAL PROTEIN 6.5 GM/DL (6.4-8.2)
[2020-09-29 09:47] LABS: TESTOSTERONE 15 NG/DL (241-827)
== END ==
LOC: M LAB 08:33
PROVIDERS: ATTEND Internal Medicine Hematology & Oncology
DX: C61 Malignant neoplasm of prostate (principal)

== ENCOUNTER → 2020-10-31 | Outpatient (CLI) | payer OTHER ==
[2020-10-31 08:58] LABS: BASO % 0.6 % (0.0-1.0); EOS # 0.1 10^3/uL (0.0-0.5); HEMATOCRIT 39.2 % (42.0-52.0); HEMOGLOBIN 12.8 g/dl (13.5-17.5); LYMPH # 1.3 10^3/uL (1.5-5.0); LYMPH % 27.5 % (24.0-44.0); MEAN CORPUSCULAR HEMOGLOBIN 27.5 pg (27.0-33.0); MEAN CORPUSCULAR HGB CONC 32.7 g/dl (32.0-36.5); MEAN CORPUSCULAR VOLUME 84.3 fl (80.0-96.0); MONO # 0.4 10^3/uL (0.0-0.8); MONO % 7.9 % (0.0-5.0); NEUTROPHILS % 62.6 % (36.0-66.0); PLATELET COUNT, AUTOMATED 265 10^3/uL (150-450); RED BLOOD COUNT 4.65 10^6/uL (4.30-6.10); WHITE BLOOD COUNT 4.8 10^3/uL (4.0-10.0)
[2020-10-31 09:30] LABS: ALBUMIN 3.5 GM/DL (3.2-5.2); ALT/SGPT 24 U/L (12-78); BILIRUBIN,TOTAL 0.3 MG/DL (0.2-1.0); BLOOD UREA NITROGEN 16 MG/DL (7-18); CARBON DIOXIDE LEVEL 28 MEQ/L (21-32); CHLORIDE LEVEL 106 MEQ/L (98-107); CREATININE FOR GFR 0.85 MG/DL (0.70-1.30); GLOMERULAR FILTRATION RATE > 60.0 (>49); GLUCOSE, FASTING 102 MG/DL (70-100); POTASSIUM SERUM 4.2 MEQ/L (3.5-5.1); SODIUM LEVEL 139 MEQ/L (136-145); TOTAL PROTEIN 6.7 GM/DL (6.4-8.2)
== END ==
LOC: M LAB 08:28
PROVIDERS: ATTEND Internal Medicine Hematology & Oncology
DX: C61 Malignant neoplasm of prostate (principal)

== ENCOUNTER → 2020-11-29 | Outpatient (CLI) | payer OTHER ==
[2020-11-29 11:59] LABS: ALBUMIN 3.9 GM/DL (3.2-5.2); ALT/SGPT 24 U/L (12-78); BILIRUBIN,TOTAL 0.4 MG/DL (0.2-1.0); BLOOD UREA NITROGEN 17 MG/DL (7-18); CALCIUM LEVEL 8.8 MG/DL (8.8-10.2); CARBON DIOXIDE LEVEL 24 MEQ/L (21-32); CHLORIDE LEVEL 107 MEQ/L (98-107); CREATININE FOR GFR 0.85 MG/DL (0.70-1.30); GLOMERULAR FILTRATION RATE > 60.0 (>49); GLUCOSE, FASTING 96 MG/DL (70-100); SODIUM LEVEL 139 MEQ/L (136-145); TOTAL PROTEIN 6.9 GM/DL (6.4-8.2)
== END ==
LOC: M LAB 10:06
PROVIDERS: ATTEND Internal Medicine Hematology
DX: C61 Malignant neoplasm of prostate (principal)

== ENCOUNTER → 2020-11-29 | Outpatient (REF) | payer OTHER | LOC: M SMT 13:59 | PROVIDERS: ATTEND Urology | DX: C61 Malignant neoplasm of prostate (principal) ==

== ENCOUNTER → 2021-04-12 | Outpatient (CLI) | payer OTHER ==
[~2021-04-12] MED LIST changes: +HYDR-3490 PO; -HYDR25TAB PO; +LISI10TA15 PO
[2021-04-12 16:13] LABS: ALBUMIN 3.6 GM/DL (3.2-5.2); ALT/SGPT 16 U/L (12-78); BASO % 0.7 % (0.0-1.0); BILIRUBIN,TOTAL 0.3 MG/DL (0.2-1.0); BLOOD UREA NITROGEN 19 MG/DL (7-18); CALCIUM LEVEL 9.3 MG/DL (8.8-10.2); CARBON DIOXIDE LEVEL 28 MEQ/L (21-32); CHLORIDE LEVEL 100 MEQ/L (98-107); CREATININE FOR GFR 0.96 MG/DL (0.70-1.30); EOS # 0.1 10^3/uL (0.0-0.5); EOS % 1.7 % (0.0-3.0); GLOMERULAR FILTRATION RATE > 60.0 (>49); GLUCOSE, FASTING 94 MG/DL (70-100); HEMATOCRIT 40.1 % (42.0-52.0); HEMOGLOBIN 13.1 g/dl (13.5-17.5); LYMPH # 1.8 10^3/uL (1.5-5.0); LYMPH % 34.2 % (24.0-44.0); MEAN CORPUSCULAR HEMOGLOBIN 28.4 pg (27.0-33.0); MEAN CORPUSCULAR HGB CONC 32.7 g/dl (32.0-36.5); MEAN CORPUSCULAR VOLUME 86.8 fl (80.0-96.0); MONO # 0.4 10^3/uL (0.0-0.8); MONO % 6.9 % (2.0-8.0); NEUTROPHILS % 56.1 % (36.0-66.0); PLATELET COUNT, AUTOMATED 326 10^3/uL (150-450); POTASSIUM SERUM 4.1 MEQ/L (3.5-5.1); PROSTATIC SPECIFIC AG MONITOR 4.89 NG/ML (< 4.00); RED BLOOD COUNT 4.62 10^6/uL (4.30-6.10); SODIUM LEVEL 136 MEQ/L (136-145); TOTAL PROTEIN 7.3 GM/DL (6.4-8.2); WHITE BLOOD COUNT 5.4 10^3/uL (4.0-10.0)
== END ==
LOC: M WUC 10:45
PROVIDERS: ATTEND Internal Medicine Hematology & Oncology
DX: C61 Malignant neoplasm of prostate (principal)

== ENCOUNTER → 2021-05-31 | Outpatient (CLI) | payer MEDICARE, BC, OTHER ==
[~2021-05-31] MED LIST changes: +PRED5PAK2 PO; +ZYTI250T PO
[2021-05-31 12:02] LABS: BASO % 0.5 % (0.0-1.0); EOS # 0.1 10^3/uL (0.0-0.5); EOS % 0.7 % (0.0-3.0); LYMPH # 1.4 10^3/uL (1.5-5.0); MEAN CORPUSCULAR HGB CONC 32.5 g/dl (32.0-36.5); MEAN CORPUSCULAR VOLUME 86.2 fl (80.0-96.0); MONO # 0.5 10^3/uL (0.0-0.8); MONO % 6.4 % (2.0-8.0); NEUTROPHILS # 5.7 10^3/uL (1.5-8.5); PLATELET COUNT, AUTOMATED 281 10^3/uL (150-450); RED BLOOD COUNT 4.64 10^6/uL (4.30-6.10); WHITE BLOOD COUNT 7.7 10^3/uL (4.0-10.0)
[2021-05-31 12:46] LABS: ALBUMIN 3.6 GM/DL (3.2-5.2); ALT/SGPT 19 U/L (12-78); BILIRUBIN,TOTAL 0.3 MG/DL (0.2-1.0); BLOOD UREA NITROGEN 18 MG/DL (7-18); CARBON DIOXIDE LEVEL 32 MEQ/L (21-32); CHLORIDE LEVEL 101 MEQ/L (98-107); CREATININE FOR GFR 0.85 MG/DL (0.70-1.30); GLOMERULAR FILTRATION RATE > 60.0 (>49); GLUCOSE, FASTING 90 MG/DL (70-100); POTASSIUM SERUM 3.5 MEQ/L (3.5-5.1); PROSTATIC SPECIFIC AG MONITOR 7.71 NG/ML (< 4.00); SODIUM LEVEL 138 MEQ/L (136-145); TOTAL PROTEIN 6.9 GM/DL (6.4-8.2)
== END ==
LOC: M WUC 10:14
PROVIDERS: ATTEND Specialist
DX: C79.51 Secondary malignant neoplasm of bone (principal)

== ENCOUNTER → 2021-07-26 | Outpatient (CLI) | payer MEDICARE, BC ==
[2021-07-26 11:41] LABS: BASO % 0.4 % (0.0-1.0); EOS % 0.4 % (0.0-3.0); HEMATOCRIT 40.1 % (42.0-52.0); HEMOGLOBIN 13.2 g/dl (13.5-17.5); LYMPH # 1.1 10^3/uL (1.5-5.0); LYMPH % 13.7 % (24.0-44.0); MEAN CORPUSCULAR HEMOGLOBIN 28.3 pg (27.0-33.0); MEAN CORPUSCULAR HGB CONC 32.9 g/dl (32.0-36.5); MEAN CORPUSCULAR VOLUME 86.1 fl (80.0-96.0); MONO # 0.5 10^3/uL (0.0-0.8); NEUTROPHILS # 6.3 10^3/uL (1.5-8.5); NEUTROPHILS % 78.9 % (36.0-66.0); PLATELET COUNT, AUTOMATED 334 10^3/uL (150-450); RED BLOOD COUNT 4.66 10^6/uL (4.30-6.10)
[2021-07-26 12:17] LABS: ALBUMIN 3.3 GM/DL (3.2-5.2); ALT/SGPT 23 U/L (12-78); BILIRUBIN,TOTAL 0.4 MG/DL (0.2-1.0); BLOOD UREA NITROGEN 19 MG/DL (7-18); CALCIUM LEVEL 9.5 MG/DL (8.8-10.2); CARBON DIOXIDE LEVEL 27 MEQ/L (21-32); CHLORIDE LEVEL 103 MEQ/L (98-107); CREATININE FOR GFR 0.96 MG/DL (0.70-1.30); GLOMERULAR FILTRATION RATE > 60.0 (>49); GLUCOSE, FASTING 79 MG/DL (70-100); SODIUM LEVEL 137 MEQ/L (136-145); TOTAL PROTEIN 6.8 GM/DL (6.4-8.2)
== END ==
LOC: M WUC 08:58
PROVIDERS: ATTEND Specialist
DX: C61 Malignant neoplasm of prostate (principal)
CPT/HCPCS: 36415; 80053; 85025; G0103

== ENCOUNTER → 2021-08-21 | Outpatient (CLI) | payer MEDICARE, BC ==
[~2021-08-21] MED LIST changes: +ABIR250T
--- NOTE | 2021-08-21 14:11 | RADONC ---
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 His PSA continues to rise on blanca raterone/prednisone/ADT and he is here today to discuss starting Xofigo as the next line of therapy. Diagnosis/Treatment History Oncologic History 2013 diagnosed with prostate cancer treated initially with RP followed by adjuvant RT to 66.6 Gy in 37 fractions completed 08/19/14. PSA remained low until 2017 when it began to rise, he was placed on ADT, PSA responded but then ricardo. He was noted on restaging from November 2018 to have a solitary sclerotic left iliac bone metastasis. He was started Xtandi and ADT in 2018 and his PSA subsequently responded but then ricardo again. In 2019 he started Zytiga and prednisone which again resulted in only temporary PSA response. Relevant data: Item Value Date Time Basophils (%) (Auto) 0.4 % 06/21/21816 Lymphocytes # (Auto) 1.3 10^3/uL L 06/21/21816 Neutrophils # (Auto) 6.2 10^3/uL 06/21/21816 Hemoglobin 13.0 g/dl L 06/21/21816 White Blood Count 8.2 10^3/uL 06/21/21816 Red Blood Count 4.58 10^6/uL 06/21/21816 Hematocrit 39.8 % L 06/21/21816 Mean Corpuscular Volume 86.9 fl 06/21/21816 Mean Corpuscular Hemoglobin Concent 32.7 g/dl 06/21/21816 Platelet Count 261 10^3/uL 06/21/21816 Mean Corpuscular Hemoglobin 28.4 pg 06/21/21816 Red Cell Distribution Width 13.2 % 06/21/21816 Immature Granulocyte % (Auto) 0.5 % 06/21/21816 Neutrophils (%) (Auto) 75.9 % H 06/21/21816 Lymphocytes (%) (Auto) 15.8 % L 06/21/21816 Monocytes (%) (Auto) 6.7 % 06/21/21816 Item Value Date Time Prostate Specific Antigen 0.84 NG/ML 12/22/19 1028 Prostate Specific Antigen 1.05 NG/ML 02/17/20 0956 Prostate Specific Antigen 1.23 NG/ML 07/10/20 1140 Prostate Specific Antigen 1.18 NG/ML 08/08/20 1015 Total Testosterone 18 NG/DL L 08/08/20 1015 Prostate Specific Antigen 1.93 NG/ML 01/26/21 1452 Prostate Specific Antigen 3.43 NG/ML 02/28/21 1441 Prostate Specific Antigen 4.65 NG/ML H 05/07/21 1346 Prostate Specific Antigen Screen 7.91 NG/ML H 06/21/21 0817 Item Value Date Time Prostate Specific Antigen Screen 9.63 NG/ML H 07/26/21 0858 Item Value Date Time Alkaline Phosphatase 143 U/L H 07/26/21 0858 Item Value Date Time Creatinine 0.96 MG/DL 07/26/21 0858 Interval History Jg reports he feels well. He has some scattered pains, right leg is the do minant site, but also low back which is new compared to recent months. He has some low energy and feels weaker since starting the Zytiga/prednisone. Appetite is good but weight is lower. No urinary or bowel complaints. Current Therapy ADT/Zytiga/Prednisone/Xgeva Stage Prostate cancer M1b Stage IV Social History: Former smoker Does not abuse alcohol Allergies / Meds Allergies: Coded Allergies: No Known Allergies (Unverified , 02/11/18) Home Meds Active Scripts Prednisone (Prednisone) 5 Mg Tab.ds.pk, 5 MG PO BID MDD 2 TABS for 30 Days, #60 TAB 6 Refills Prov:EMILY RODRÍGUEZ MD 05/07/21 Enzalutamide (Xtandi) 40 Mg Cap, 4 CAP PO DAILY for 30 Days, #120 CAP 3 Refills TAKE 4 CAPS A DAY EVERY MORNING AT THE SAME TIME WITH OR WITHOUT FOOD. Prov:EMILY RODRÍGUEZ MD 03/19/21 Calcium Carbonate/Vitamin D3 (Calcium 600-Vit D3 400 Tablet) 1 Each Tablet, 1 TAB PO BID for 30 Days, #60 TAB Prov:HOLLIS NOVOA MD 07/10/20 [Outpatient PT] No Conflict Check, for vestibular dysfunction, #1 Prov:Peace Jara MD 02/10/20 Reported Medications Abiraterone Acetate (Abiraterone Acetate) 250 Mg Tablet 08/21/21 Lisinopril/Hydrochlorothiazide (Lisinopril-Hctz 10-12.5 mg Tab) 1 Each Tablet, 1 TAB PO DAILY for 30 Days, #30 TAB 01/26/21 Leuprolide Acetate (Lupron Depot) 45 Mg Syringekit, 45 MG IM [id number], #10 INJ 01/18/20 Discontinued Scripts Abiraterone Acetate (Zytiga) 250 Mg Tablet, 4 TAB PO DAILY MDD 4 TABS for 30 Days, #120 TAB 6 Refills Prov:EMILY RODRÍGUEZ MD 08/14/21 Review of Systems Review of Systems Constitutional: Reports: Fatigue, Weight Loss Eyes: Denies: Pain HEENT: Denies: Head Aches Skin: Denies: Rash Pulmonary: Denies: Dyspnea, Cough Cardiovascular: Denies: Chest Pain, Edema Gastrointestinal: Denies: Abdominal Pain, Hematochezia Genitourinary: Denies: Frequency, Incontinence Musculoskeletal: Reports: Back pain, Leg pain; Denies: Neck pain Neurological: Reports: Weakness; Denies: Numbness Psych: Reports: Mood Normal Physical Examination Vital Signs Ht 68" Wt 234 lbs BMI 36 T 98 P 70 RR 18 BP 131/93 O2 97% Pain 0 Fatigue 1 General Exam: Alert, Cooperative, No Acute Distress Eye Exam: PERRLA, EOMI ENT EXAM: Atraumatic Neck Exam: Supple; Negative: Lymphadenopathy Chest Exam: Clear to auscultation, Normal air movement Heart Exam: Rate Normal, Regular Rhythm Abdomen Exam: Soft Extremity Exam: Negative: Edema Skin Exam: Nl turgor and temperature Neuro Exam: Normal Gait, Normal Speech, Cranial Nerves 3-12 NL Psych Exam: Mental status NL Diagnostic and Laboratory Diagnostic Review Radiologic images, relevant labs and pathology reports were personally reviewed and discussed with Mr. Hsu. Assessment and Plan Impression Assessment Mr. 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 His PSA continues to rise on abiraterone/prednisone/ADT and he is here today to discuss starting Xofigo as the next line of therapy. He seems to have some evidence of progression in the bone with steadily rising alkaline phosphatase. He also has non-specific low back pain which has developed. His marrow reserve is adequate for Xofigo. I discussed the rationale for Xofigo's use in mCRPC to bone and the results of the ALSYMPCA trial. We reviewed the treatment schedule and CBC monitoring required. We also reviewed the adverse effects, notably count suppression. He would like to proceed with the treatment. I note that Dr. Rodríguez has him scheduled for a bone scan on 08/29/21. I will add CT chest abdomen pelvis to this as evidence of no visceral metastases is required for Xofigo eligibility. Once these studies are obtained I will call him and discuss next steps in scheduling. I will also let Dr. Rodríguez know of the plan. In the meantime he should continue his Zytiga until we are prepared to start Xofigo, then he can stop the medication. Performance Status ECOG [address] chest abdomen pelvis and bone scan Pending above restaging will proceed with Xofigo q1m for 6 months total therapy duration Will repeat baseline labs prior to start of Xofigo Mr. Hsu was encouraged to call with questions or concerns in the interim period. Billing Statement Total time of [33] minutes was spent preparing for the visit [2], obtaining HPI [5], examining the patient [2], reviewing diagnostic tests [5], discussing management options [10], coordinating care [2], and writing this note [7]. SUZANNE SMITH MD Aug 21, 2021 14:11
== END ==
LOC: M ONCR 12:38
PROVIDERS: ATTEND General Practice
DX: C79.51 Secondary malignant neoplasm of bone (principal); R97.21 Rising PSA following treatment for malignant neoplasm of prostate; M54.50 Low back pain, unspecified; Z79.899 Other long term (current) drug therapy; Z85.46 Personal history of malignant neoplasm of prostate; Z87.891 Personal history of nicotine dependence; Z92.3 Personal history of irradiation

== ENCOUNTER → 2021-08-24 | Outpatient (CLI) | payer MEDICARE, BC ==
[~2021-08-24] MED LIST changes: +GASTROGRAFIN SOLUTION 30ML (Q9963) As Ordered ONE; +ISOVUE-370 76% 100ML VIAL As Ordered ONE
--- NOTE | 2021-08-24 15:22 | REP ---
INDICATION: PROSTATE CA, BONE METS COMPARISON: 02/25/2020 TECHNIQUE: Axial contrast enhanced images from the thoracic inlet to the upper abdomen with coronal and sagittal reformations using 100 ml Isovue 370 intravenous contrast material. [address] CT examination was performed using the following dose reduction techniques: Automated exposure control, adjustment of mA and/or kv according to the patient's size, and use of iterative reconstruction technique. FINDINGS: Bilateral lung soto are well aerated and without acute consolidation, suspicious nodule or mass. No effusion. No pneumothorax. Tracheobronchial tree is patent. No axillary, hilar, or mediastinal adenopathy. Thoracic aorta, pulmonary vasculature are normal. Atherosclerotic changes to the coronary arteries noted without cardiomegaly or pericardial effusion. Small hiatal hernia at the gastroesophageal junction noted. Musculoskeletal structures are intact and without obvious acute focal lytic, sclerotic, or blastic lesions to suggest metastatic disease. IMPRESSION: No evidence for metastatic disease. No acute mediastinal or pleuroparenchymal process. <Electronically signed by Obinna Amaral > 08/24/21 [id number]
--- NOTE | 2021-08-24 15:27 | REP ---
INDICATION: PROSTATE CA, BONE METS. COMPARISON: 12/16/2018 TECHNIQUE: Axial contrast-enhanced images from the lung bases to the pubic symphysis using 100 cc Isovue 370 intravenous contrast material. Coronal and sagittal reformations obtained along with delayed images of the abdomen. This CT examination was performed using the following dose reduction techniques: Automated exposure control, adjustment of mA and/or kv according to the patient's size, and the use of iterative reconstruction technique. FINDINGS: Liver, spleen, pancreas, gallbladder, bilateral adrenal glands and kidneys are normal. Incidental subcentimeter hepatic hypodensities compatible with cysts. The enteric system including stomach, small, and large bowel appears normal. No evidence for obstruction or acute inflammatory process. Normal terminal ileum and appendix are identified in the right lower quadrant. Pelvis demonstrates normal bladder and evidence for prior prostatectomy. Small fat containing left inguinal hernia noted. No ascites. No free air. No intraperitoneal or retroperitoneal adenopathy. Abdominal aorta and vasculature appear normal. Large sclerotic focus in the left iliac bone measures roughly 3 cm diameter with hazy surrounding sclerotic changes. Smaller sclerotic foci in the pelvis are also identified but stable. There is evidence for chronic L5 spondylolysis with minimal spondylolisthesis. IMPRESSION: No acute abdominopelvic pathology appreciated. Large sclerotic focus in the left iliac bone suspicious for given history of solitary osseous metastatic disease. <Electronically signed by Obinna Amaral > 08/24/21 [id number]
== END ==
LOC: M RAD 13:35
PROVIDERS: ATTEND General Practice
DX: C61 Malignant neoplasm of prostate (principal); C79.51 Secondary malignant neoplasm of bone
CPT/HCPCS: 71260; 74177; Q9963; Q9967

== ENCOUNTER → 2021-08-31 | Outpatient (CLI) | payer MEDICARE, BC ==
[~2021-08-31] MED LIST changes: -GASTROGRAFIN SOLUTION 30ML (Q9963) As Ordered ONE; -ISOVUE-370 76% 100ML VIAL As Ordered ONE
--- NOTE | 2021-08-31 13:41 | REP ---
INDICATION: PROSTATE CA, WITH BONE METS. COMPARISON: 08/10/2020. TECHNIQUE/RADIOTRACER AND DOSE: Following the intravenous administration of 22.0mCi technetium 99 M MDP, patient's whole-body is imaged in multiple projections. FINDINGS: There is an oval focus of intense increased uptake in the medial aspect of the left iliac bone. This has increased in size and intensity when compared to the prior study. This corresponds to the location of a blastic lesion seen on the CT scan of 08/24/2021. There are no new foci of abnormal radiotracer uptake in the axial or appendicular skeleton. Renal and bladder activity are seen. IMPRESSION: The previously identified focus of increased uptake in the medial aspect of the left iliac bone has increased in size and intensity when compared to the prior study of 08/10/2020. This corresponds to the location of a blastic bone lesion seen on the recent CT scan. <Electronically signed by Nitin Queen > 08/31/21 [id number]
== END ==
LOC: M RAD 09:31
PROVIDERS: ATTEND Specialist
DX: C61 Malignant neoplasm of prostate (principal); C79.51 Secondary malignant neoplasm of bone
CPT/HCPCS: 78306; A9503

== ENCOUNTER → 2021-08-31 | Outpatient (CLI) | payer MEDICARE, BC ==
[2021-08-31 12:08] LABS: BASO % 0.5 % (0.0-1.0); EOS # 0.1 10^3/uL (0.0-0.5); EOS % 1.2 % (0.0-3.0); HEMATOCRIT 38.2 % (42.0-52.0); HEMOGLOBIN 12.6 g/dl (13.5-17.5); LYMPH # 1.3 10^3/uL (1.5-5.0); LYMPH % 16.1 % (24.0-44.0); MEAN CORPUSCULAR HEMOGLOBIN 28.3 pg (27.0-33.0); MEAN CORPUSCULAR VOLUME 85.8 fl (80.0-96.0); MONO # 0.5 10^3/uL (0.0-0.8); MONO % 6.5 % (2.0-8.0); PLATELET COUNT, AUTOMATED 293 10^3/uL (150-450); RED BLOOD COUNT 4.45 10^6/uL (4.30-6.10); WHITE BLOOD COUNT 8.1 10^3/uL (4.0-10.0)
[2021-08-31 12:49] LABS: TESTOSTERONE < 7 NG/DL (241-827)
== END ==
LOC: M LAB 10:18
PROVIDERS: ATTEND General Practice
DX: C61 Malignant neoplasm of prostate (principal)

== ENCOUNTER → 2021-10-04 | Outpatient (CLI) | payer MEDICARE, BC ==
--- NOTE | 2021-10-04 13:36 | ROOPDOC ---
[facility] Report Of Operation Report of Operation [facility] Radiation Oncology Radioisotope administration report Name: Jg Hsu Anamika LolaB: 57 Procedure diagnosis: C61.0 Prostate cancer, C79.51 Secondary malignant neoplasm of bone Procedure date/time: 10/04/21 1100 Physician: Suzanne Smith MD Radioisotope: Xofigo ([place] 223) Ordered activity: 157.9 uCi Administered activity: 168.0 uCi Description of procedure: Informed consent for administration of the radioisotope was obtained. A timeout was completed. The patient was scanned with a GM counter and no baseline radioactivity was noted. A 18 Ga peripheral IV was placed in the left AC. The IV was noted to both flush and draw with ease. The dose was administered via IV push over 1 minute. The IV was then flushed with 20 cc of normal saline. The IV was discontinued. The contaminated waste was consolidated and stored to decay for the appropriate length of time. The patient was monitored for 10 minutes. No acute adverse events were noted. The patient was scanned with a GM counter and the dose rate at the umbilicus was noted to be: 1.5 mR/Hr Disposition: The patient tolerated the procedure well He received isotope-specific discharge instructions He will have CBC and CMP drawn in 3 weeks He will follow up in 4 weeks for the next cycle SUZANNE SMITH MD Oct 04, 2021 13:36
== END ==
LOC: M ONCR 10:43
PROVIDERS: ATTEND General Practice
DX: C61 Malignant neoplasm of prostate (principal); C79.51 Secondary malignant neoplasm of bone

== ENCOUNTER → 2021-10-25 | Outpatient (REF) | payer MEDICARE, BC ==
[2021-10-25 12:43] LABS: BASO % 0.8 % (0.0-1.0); EOS # 0.1 10^3/uL (0.0-0.5); HEMATOCRIT 38.4 % (42.0-52.0); HEMOGLOBIN 12.5 g/dl (13.5-17.5); LYMPH # 1.7 10^3/uL (1.5-5.0); LYMPH % 35.2 % (24.0-44.0); MEAN CORPUSCULAR HEMOGLOBIN 27.7 pg (27.0-33.0); MEAN CORPUSCULAR HGB CONC 32.6 g/dl (32.0-36.5); MEAN CORPUSCULAR VOLUME 85.1 fl (80.0-96.0); MONO # 0.4 10^3/uL (0.0-0.8); MONO % 8.7 % (2.0-8.0); NEUTROPHILS # 2.7 10^3/uL (1.5-8.5); NEUTROPHILS % 54.1 % (36.0-66.0); PLATELET COUNT, AUTOMATED 283 10^3/uL (150-450); RED BLOOD COUNT 4.51 10^6/uL (4.30-6.10)
[2021-10-25 13:39] LABS: ALBUMIN 3.8 GM/DL (3.2-5.2); ALT/SGPT 28 U/L (12-78); BILIRUBIN,TOTAL 0.3 MG/DL (0.2-1.0); BLOOD UREA NITROGEN 20 MG/DL (7-18); CALCIUM LEVEL 9.7 MG/DL (8.8-10.2); CARBON DIOXIDE LEVEL 28 MEQ/L (21-32); CHLORIDE LEVEL 105 MEQ/L (98-107); CREATININE FOR GFR 0.85 MG/DL (0.70-1.30); GLOMERULAR FILTRATION RATE > 60.0 (>49); GLUCOSE, FASTING 92 MG/DL (70-100); POTASSIUM SERUM 4.2 MEQ/L (3.5-5.1); SODIUM LEVEL 140 MEQ/L (136-145)
== END ==
LOC: M WUC 12:02
PROVIDERS: ATTEND General Practice
DX: C61 Malignant neoplasm of prostate (principal)

== ENCOUNTER → 2021-11-01 | Outpatient (CLI) | payer MEDICARE, BC ==
--- NOTE | 2021-11-01 14:16 | ROOPDOC ---
[facility] Report Of Operation Report of Operation [facility] Radiation Oncology Radioisotope administration report Name: Jg Hsu Anamika LolaB: 57 Procedure diagnosis: C61.0 Prostate cancer, C79.51 Secondary malignant neoplasm of bone Procedure date/time: 11/01/21 1400 Physician: Suzanne Smith MD Radioisotope: Xofigo ([place] 223) Ordered activity: 157.9 uCi Administered activity: 170.0 uCi Description of procedure: Informed consent for administration of the radioisotope was obtained. A timeout was completed. The patient was scanned with a GM counter and no baseline radioactivity was noted. A 18 Ga peripheral IV was placed in the left AC. The IV was noted to both flush and draw with ease. The dose was administered via IV push over 1 minute. The IV was then flushed with 20 cc of normal saline. The IV was discontinued. The contaminated waste was consolidated and stored to decay for the appropriate length of time. The patient was monitored for 10 minutes. No acute adverse events were noted. The patient was scanned with a GM counter and the dose rate at the umbilicus was noted to be: 0.1 mR/Hr Disposition: The patient tolerated the procedure well He received isotope-specific discharge instructions He will have CBC and CMP drawn in 3 weeks He will follow up in 4 weeks for the next cycle SUZANNE SMITH MD Nov 01, 2021 14:16
--- NOTE | 2021-11-01 14:22 | RADENCPD ---
Date/Time of Encounter Date of Encounter: Nov 01, 2021 Time of Encounter: 14:16 Encounter Radiopharmaceutical Progress Note Jg came in today for a brief follow up prior to cycle # 2 of xofigo. He reports that his left hip and low back pain resolved completely 1-2 weeks after the first cycle was given. He is pleased. VS Wt 234 lbs T 95.2 P 78 RR 18 BP 148/82 O2 97% Pain 0 Fatigue 0 Item Value Date Time White Blood Count 5.0 10^3/uL 10/25/21 1049 Red Blood Count 4.51 10^6/uL 10/25/21 1049 Hemoglobin 12.5 g/dl L 10/25/21 1049 Hematocrit 38.4 % L 10/25/21 1049 Mean Corpuscular Volume 85.1 fl 10/25/21 1049 Mean Corpuscular Hemoglobin 27.7 pg 10/25/21 1049 Platelet Count 283 10^3/uL 10/25/21 1049 Neutrophils # (Auto) 2.7 10^3/uL 10/25/21 1049 Sodium Level 140 MEQ/L 10/25/21 1049 Potassium Level 4.2 MEQ/L 10/25/21 1049 Carbon Dioxide Level 28 MEQ/L 10/25/21 1049 Chloride Level 105 MEQ/L 10/25/21 1049 Anion Gap 7 MEQ/L L 10/25/21 1049 Blood Urea Nitrogen 20 MG/DL H 10/25/21 1049 Creatinine 0.85 MG/DL 10/25/21 1049 Glomerular Filtration Rate > 60.0 10/25/21 1049 Fasting Glucose 92 MG/DL 10/25/21 1049 Assessment: CR in bone pain s/p cycle 1 xofigo. CBC adequate for cycle # 2. Plan: Proceed with cycle # 2 Labs in 3 weeks Next cycle in 4 weeks, no dose adjustment Total time of 11 minutes spent on this follow up encounter exclusive of procedures. SUZANNE SMITH MD Nov 01, 2021 14:22
== END ==
LOC: M ONCR 13:40
PROVIDERS: ATTEND General Practice
DX: C61 Malignant neoplasm of prostate (principal); C79.51 Secondary malignant neoplasm of bone
CPT/HCPCS: 79101; G0463

== ENCOUNTER → 2021-12-06 | Outpatient (CLI) | payer MEDICARE, BC, OTHER ==
[~2021-12-06] MED LIST changes: -LISI10TA15 PO; +LISI10TA24 PO; -PROC10TA4 PO; +PROC10TA5 PO
== END ==
LOC: M ONCR 13:37
PROVIDERS: ATTEND General Practice
DX: C61 Malignant neoplasm of prostate (principal); C79.51 Secondary malignant neoplasm of bone
CPT/HCPCS: 77790; 79101; G0463

== ENCOUNTER → 2021-12-27 | Outpatient (CLI) | payer MEDICARE, BC, OTHER ==
[2021-12-27 11:14] LABS: BASO % 0.6 % (0.0-1.0); EOS # 0.1 10^3/uL (0.0-0.5); EOS % 1.4 % (0.0-3.0); HEMATOCRIT 36.8 % (42.0-52.0); HEMOGLOBIN 12.1 g/dl (13.5-17.5); LYMPH # 1.1 10^3/uL (1.5-5.0); LYMPH % 29.9 % (24.0-44.0); MEAN CORPUSCULAR HEMOGLOBIN 27.8 pg (27.0-33.0); MEAN CORPUSCULAR HGB CONC 32.9 g/dl (32.0-36.5); MEAN CORPUSCULAR VOLUME 84.6 fl (80.0-96.0); MONO # 0.4 10^3/uL (0.0-0.8); MONO % 11.3 % (2.0-8.0); NEUTROPHILS % 56.5 % (36.0-66.0); PLATELET COUNT, AUTOMATED 250 10^3/uL (150-450); RED BLOOD COUNT 4.35 10^6/uL (4.30-6.10); WHITE BLOOD COUNT 3.6 10^3/uL (4.0-10.0)
[2021-12-27 11:45] LABS: ALT/SGPT 23 U/L (12-78); BLOOD UREA NITROGEN 21 MG/DL (7-18); CALCIUM LEVEL 9.2 MG/DL (8.8-10.2); CARBON DIOXIDE LEVEL 30 MEQ/L (21-32); CHLORIDE LEVEL 103 MEQ/L (98-107); CREATININE FOR GFR 0.85 MG/DL (0.70-1.30); GLOMERULAR FILTRATION RATE > 60.0 (>49); GLUCOSE, FASTING 96 MG/DL (70-100); POTASSIUM SERUM 3.9 MEQ/L (3.5-5.1); SODIUM LEVEL 138 MEQ/L (136-145)
[2021-12-27 11:46] LABS: ALBUMIN 3.7 GM/DL (3.2-5.2); BILIRUBIN,TOTAL 0.3 MG/DL (0.2-1.0); TOTAL PROTEIN 6.8 GM/DL (6.4-8.2)
== END ==
LOC: M WUC 08:15
PROVIDERS: ATTEND General Practice
DX: Z00.00 Encounter for general adult medical examination without abnormal findings (principal); Z79.899 Other long term (current) drug therapy; Z85.46 Personal history of malignant neoplasm of prostate

== ENCOUNTER → 2022-01-03 | Outpatient (CLI) | payer MEDICARE, BC, OTHER ==
[2022-01-03] MEDS: XOFIGO(RADIUM-223 DICHLORIDE) 180UCI 6ML VL (1,100KBQ/ML) (30UCI/ML) IV ONE (09:00)
== END ==
LOC: M ONCR 12:39
PROVIDERS: ATTEND General Practice
DX: C61 Malignant neoplasm of prostate (principal); C79.51 Secondary malignant neoplasm of bone
CPT/HCPCS: 79101; A9606; G0463

== ENCOUNTER → 2022-01-24 | Outpatient (CLI) | payer MEDICARE, BC, OTHER ==
[2022-01-24 09:36] LABS: BASO % 0.6 % (0.0-1.0); EOS # 0.1 10^3/uL (0.0-0.5); EOS % 3.1 % (0.0-3.0); HEMOGLOBIN 11.5 g/dl (13.5-17.5); LYMPH # 0.8 10^3/uL (1.5-5.0); LYMPH % 22.6 % (24.0-44.0); MEAN CORPUSCULAR HEMOGLOBIN 28.3 pg (27.0-33.0); MEAN CORPUSCULAR HGB CONC 33.8 g/dl (32.0-36.5); MEAN CORPUSCULAR VOLUME 83.7 fl (80.0-96.0); MONO # 0.6 10^3/uL (0.0-0.8); MONO % 16.2 % (2.0-8.0); NEUTROPHILS # 2.1 10^3/uL (1.5-8.5); NEUTROPHILS % 57.2 % (36.0-66.0); PLATELET COUNT, AUTOMATED 213 10^3/uL (150-450); RED BLOOD COUNT 4.06 10^6/uL (4.30-6.10); WHITE BLOOD COUNT 3.6 10^3/uL (4.0-10.0)
[2022-01-24 10:03] LABS: ALBUMIN 3.7 GM/DL (3.2-5.2); ALT/SGPT 21 U/L (12-78); BILIRUBIN,TOTAL 0.4 MG/DL (0.2-1.0); BLOOD UREA NITROGEN 17 MG/DL (7-18); CALCIUM LEVEL 9.4 MG/DL (8.8-10.2); CARBON DIOXIDE LEVEL 30 MEQ/L (21-32); CHLORIDE LEVEL 102 MEQ/L (98-107); CREATININE FOR GFR 0.97 MG/DL (0.70-1.30); GLOMERULAR FILTRATION RATE > 60.0 (>49); GLUCOSE, FASTING 108 MG/DL (70-100); POTASSIUM SERUM 3.9 MEQ/L (3.5-5.1); SODIUM LEVEL 137 MEQ/L (136-145); TOTAL PROTEIN 6.8 GM/DL (6.4-8.2)
== END ==
LOC: M WUC 08:14
PROVIDERS: ATTEND General Practice
DX: C61 Malignant neoplasm of prostate (principal)

== ENCOUNTER → 2022-01-31 | Outpatient (CLI) | payer MEDICARE, BC, OTHER ==
[2022-01-31] MEDS: XOFIGO(RADIUM-223 DICHLORIDE) 180UCI 6ML VL (1,100KBQ/ML) (30UCI/ML) IV ONE (09:00)
== END ==
LOC: M ONCR 13:38
PROVIDERS: ATTEND General Practice
DX: C61 Malignant neoplasm of prostate (principal); C79.51 Secondary malignant neoplasm of bone
CPT/HCPCS: 79101; A9606; G0463

== ENCOUNTER → 2022-02-21 | Outpatient (CLI) | payer MEDICARE, BC ==
[2022-02-21 09:45] LABS: BASO % 0.5 % (0.0-1.0); EOS # 0.1 10^3/uL (0.0-0.5); EOS % 2.4 % (0.0-3.0); HEMATOCRIT 33.1 % (42.0-52.0); HEMOGLOBIN 11.2 g/dl (13.5-17.5); LYMPH # 1.1 10^3/uL (1.5-5.0); MEAN CORPUSCULAR HGB CONC 33.8 g/dl (32.0-36.5); MEAN CORPUSCULAR VOLUME 85.8 fl (80.0-96.0); MONO # 0.5 10^3/uL (0.0-0.8); NEUTROPHILS # 2.1 10^3/uL (1.5-8.5); NEUTROPHILS % 55.8 % (36.0-66.0); PLATELET COUNT, AUTOMATED 239 10^3/uL (150-450); RED BLOOD COUNT 3.86 10^6/uL (4.30-6.10); WHITE BLOOD COUNT 3.8 10^3/uL (4.0-10.0)
[2022-02-21 10:46] LABS: ALBUMIN 3.7 GM/DL (3.2-5.2); ALT/SGPT 23 U/L (12-78); BILIRUBIN,TOTAL 0.3 MG/DL (0.2-1.0); BLOOD UREA NITROGEN 21 MG/DL (7-18); CALCIUM LEVEL 9.4 MG/DL (8.8-10.2); CARBON DIOXIDE LEVEL 29 MEQ/L (21-32); CHLORIDE LEVEL 103 MEQ/L (98-107); CREATININE FOR GFR 0.82 MG/DL (0.70-1.30); GLOMERULAR FILTRATION RATE > 60.0 (>49); GLUCOSE, FASTING 97 MG/DL (70-100); SODIUM LEVEL 138 MEQ/L (136-145); TOTAL PROTEIN 6.8 GM/DL (6.4-8.2)
== END ==
LOC: M WUC 08:19
PROVIDERS: ATTEND General Practice
DX: C61 Malignant neoplasm of prostate (principal)

== ENCOUNTER → 2022-02-26 | Outpatient (CLI) | payer MEDICARE, BC ==
[2022-02-26 09:52] LABS: BASO % 0.8 % (0.0-1.0); EOS # 0.1 10^3/uL (0.0-0.5); EOS % 1.3 % (0.0-3.0); HEMATOCRIT 31.6 % (42.0-52.0); HEMOGLOBIN 10.7 g/dl (13.5-17.5); LYMPH # 1.1 10^3/uL (1.5-5.0); LYMPH % 28.7 % (24.0-44.0); MEAN CORPUSCULAR HEMOGLOBIN 28.9 pg (27.0-33.0); MEAN CORPUSCULAR HGB CONC 33.9 g/dl (32.0-36.5); MEAN CORPUSCULAR VOLUME 85.4 fl (80.0-96.0); MONO # 0.5 10^3/uL (0.0-0.8); MONO % 12.5 % (2.0-8.0); NEUTROPHILS # 2.2 10^3/uL (1.5-8.5); NEUTROPHILS % 56.4 % (36.0-66.0); PLATELET COUNT, AUTOMATED 235 10^3/uL (150-450); WHITE BLOOD COUNT 3.8 10^3/uL (4.0-10.0)
[2022-02-26 10:24] LABS: ALBUMIN 3.5 GM/DL (3.2-5.2); ALT/SGPT 24 U/L (12-78); BILIRUBIN,TOTAL 0.3 MG/DL (0.2-1.0); BLOOD UREA NITROGEN 20 MG/DL (7-18); CALCIUM LEVEL 9.1 MG/DL (8.8-10.2); CARBON DIOXIDE LEVEL 30 MEQ/L (21-32); CHLORIDE LEVEL 103 MEQ/L (98-107); CREATININE FOR GFR 0.92 MG/DL (0.70-1.30); GLOMERULAR FILTRATION RATE > 60.0 (>49); GLUCOSE, FASTING 95 MG/DL (70-100); POTASSIUM SERUM 3.9 MEQ/L (3.5-5.1); SODIUM LEVEL 138 MEQ/L (136-145); TOTAL PROTEIN 6.7 GM/DL (6.4-8.2)
== END ==
LOC: M WUC 08:32
PROVIDERS: ATTEND Specialist
DX: C61 Malignant neoplasm of prostate (principal)

== ENCOUNTER → 2022-02-28 | Outpatient (CLI) | payer MEDICARE, BC, OTHER ==
[~2022-02-28] VITALS: Ht 172.7 cm; Wt 105.0 kg
[~2022-02-28] MED LIST changes: +FOLTTAB9 PO; +IRON65TA2 PO; +XOFIGO(RADIUM-223 DICHLORIDE) 180UCI 6ML VL (1,100KBQ/ML) (30UCI/ML) IV ONE
== END ==
LOC: M ONCR 14:07
PROVIDERS: ATTEND General Practice
DX: C61 Malignant neoplasm of prostate (principal); C79.51 Secondary malignant neoplasm of bone
CPT/HCPCS: 79101; A9606; G0463

== ENCOUNTER → 2022-04-05 | Outpatient (CLI) | payer MEDICARE, BC, OTHER ==
[~2022-04-05] MED LIST changes: -XOFIGO(RADIUM-223 DICHLORIDE) 180UCI 6ML VL (1,100KBQ/ML) (30UCI/ML) IV ONE
== END ==
LOC: M RAD 12:17
PROVIDERS: ATTEND Family Medicine
DX: M79.604 Pain in right leg (principal)

== ENCOUNTER → 2022-05-23 | Outpatient (CLI) | payer MEDICARE, BC, OTHER ==
[~2022-05-23] MED LIST changes: +EQL50TAB2 PO
[2022-05-23 09:50] LABS: BASO % 0.5 % (0.0-1.0); EOS # 0.1 10^3/uL (0.0-0.5); EOS % 1.4 % (0.0-3.0); HEMOGLOBIN 10.4 g/dl (13.5-17.5); LYMPH # 0.9 10^3/uL (1.5-5.0); LYMPH % 22.2 % (24.0-44.0); MEAN CORPUSCULAR HEMOGLOBIN 28.1 pg (27.0-33.0); MEAN CORPUSCULAR HGB CONC 32.5 g/dl (32.0-36.5); MEAN CORPUSCULAR VOLUME 86.5 fl (80.0-96.0); MONO # 0.4 10^3/uL (0.0-0.8); MONO % 10.2 % (2.0-8.0); NEUTROPHILS # 2.8 10^3/uL (1.5-8.5); NEUTROPHILS % 65.2 % (36.0-66.0); PLATELET COUNT, AUTOMATED 247 10^3/uL (150-450); WHITE BLOOD COUNT 4.2 10^3/uL (4.0-10.0)
[2022-05-23 10:14] LABS: ALBUMIN 3.5 GM/DL (3.2-5.2); ALT/SGPT 17 U/L (12-78); BILIRUBIN,TOTAL 0.3 MG/DL (0.2-1.0); BLOOD UREA NITROGEN 18 MG/DL (7-18); CALCIUM LEVEL 8.9 MG/DL (8.8-10.2); CARBON DIOXIDE LEVEL 26 MEQ/L (21-32); CHLORIDE LEVEL 106 MEQ/L (98-107); CREATININE FOR GFR 0.88 MG/DL (0.70-1.30); GLOMERULAR FILTRATION RATE > 60.0 (>49); GLUCOSE, FASTING 99 MG/DL (70-100); POTASSIUM SERUM 3.9 MEQ/L (3.5-5.1); SODIUM LEVEL 141 MEQ/L (136-145); TOTAL PROTEIN 6.5 GM/DL (6.4-8.2)
== END ==
LOC: M WUC 08:22
PROVIDERS: ATTEND General Practice
DX: C61 Malignant neoplasm of prostate (principal)

== ENCOUNTER → 2022-05-30 | Outpatient (CLI) | payer BC, MEDICARE | LOC: M ONCR 13:44 | PROVIDERS: ATTEND General Practice | DX: C61 Malignant neoplasm of prostate (principal); C79.51 Secondary malignant neoplasm of bone; R97.20 Elevated prostate specific antigen [PSA]; Z79.818 Long term (current) use of other agents affecting estrogen receptors and estrogen levels; Z79.891 Long term (current) use of opiate analgesic; Z79.899 Other long term (current) drug therapy; Z92.3 Personal history of irradiation; Z79.52 Long term (current) use of systemic steroids; Z87.891 Personal history of nicotine dependence ==

== ENCOUNTER → 2022-07-02 | Outpatient (CLI) | payer MEDICARE, BC, OTHER ==
[~2022-07-02] MED LIST changes: +DARO300T PO; +GASTROGRAFIN SOLUTION 30ML (Q9963) As Ordered ONE; +ISOVUE-370 76% 100ML VIAL As Ordered ONE
== END ==
LOC: M RAD 15:16
PROVIDERS: ATTEND Internal Medicine Medical Oncology
DX: R97.20 Elevated prostate specific antigen [PSA] (principal); R91.8 Other nonspecific abnormal finding of lung field
CPT/HCPCS: 71260; 74177; Q9963; Q9967

== ENCOUNTER → 2022-07-04 | Outpatient (CLI) | payer MEDICARE, BC, OTHER ==
[~2022-07-04] MED LIST changes: -GASTROGRAFIN SOLUTION 30ML (Q9963) As Ordered ONE; -ISOVUE-370 76% 100ML VIAL As Ordered ONE
== END ==
LOC: M RAD 09:56
PROVIDERS: ATTEND Internal Medicine Medical Oncology
DX: R97.20 Elevated prostate specific antigen [PSA] (principal); C79.51 Secondary malignant neoplasm of bone
CPT/HCPCS: 78306; A9503

== ENCOUNTER → 2022-08-13 | Outpatient (CLI) | payer MEDICARE, BC, OTHER ==
[~2022-08-13] MED LIST changes: +METH-1164 PO
[2022-08-13 11:22] LABS: BASO % 0.6 % (0.0-1.0); EOS # 0.1 10^3/uL (0.0-0.5); EOS % 1.5 % (0.0-3.0); HEMATOCRIT 34.5 % (42.0-52.0); HEMOGLOBIN 11.2 g/dl (13.5-17.5); LYMPH # 1.1 10^3/uL (1.5-5.0); LYMPH % 20.7 % (24.0-44.0); MEAN CORPUSCULAR HEMOGLOBIN 28.7 pg (27.0-33.0); MEAN CORPUSCULAR HGB CONC 32.5 g/dl (32.0-36.5); MEAN CORPUSCULAR VOLUME 88.5 fl (80.0-96.0); MONO # 0.4 10^3/uL (0.0-0.8); MONO % 7.3 % (2.0-8.0); NEUTROPHILS # 3.6 10^3/uL (1.5-8.5); NEUTROPHILS % 69.5 % (36.0-66.0); PLATELET COUNT, AUTOMATED 284 10^3/uL (150-450); WHITE BLOOD COUNT 5.2 10^3/uL (4.0-10.0)
[2022-08-13 12:26] LABS: ALBUMIN 3.8 GM/DL (3.2-5.2); ALT/SGPT 26 U/L (12-78); BILIRUBIN,TOTAL 0.4 MG/DL (0.2-1.0); BLOOD UREA NITROGEN 16 MG/DL (7-18); CALCIUM LEVEL 9.2 MG/DL (8.8-10.2); CARBON DIOXIDE LEVEL 30 MEQ/L (21-32); CHLORIDE LEVEL 101 MEQ/L (98-107); CREATININE FOR GFR 0.91 MG/DL (0.70-1.30); GLOMERULAR FILTRATION RATE > 60.0 (>49); GLUCOSE, FASTING 102 MG/DL (70-100); POTASSIUM SERUM 4.2 MEQ/L (3.5-5.1); SODIUM LEVEL 134 MEQ/L (136-145); TOTAL PROTEIN 7.2 GM/DL (6.4-8.2)
[2022-08-19 14:15] LABS: MAGNESIUM LEVEL 2.4 MG/DL (1.8-2.4)
== END ==
LOC: M WUC 08:11
PROVIDERS: ATTEND Nurse Practitioner
DX: C61 Malignant neoplasm of prostate (principal)

== ENCOUNTER → 2022-08-22 | Outpatient (CLI) | payer MEDICARE, BC, OTHER | LOC: M ONCR 10:46 | PROVIDERS: ATTEND General Practice | DX: C61 Malignant neoplasm of prostate (principal); C79.51 Secondary malignant neoplasm of bone; Z79.52 Long term (current) use of systemic steroids; Z87.891 Personal history of nicotine dependence; Z79.818 Long term (current) use of other agents affecting estrogen receptors and estrogen levels; Z79.899 Other long term (current) drug therapy; Z92.3 Personal history of irradiation ==

== ENCOUNTER → 2022-09-17 | Outpatient (CLI) | payer MEDICARE, BC, OTHER ==
[2022-09-17 10:42] LABS: BASO % 0.7 % (0.0-1.0); EOS # 0.2 10^3/uL (0.0-0.5); EOS % 3.4 % (0.0-3.0); HEMATOCRIT 31.5 % (42.0-52.0); HEMOGLOBIN 10.2 g/dl (13.5-17.5); LYMPH # 1.3 10^3/uL (1.5-5.0); LYMPH % 22.5 % (24.0-44.0); MEAN CORPUSCULAR HEMOGLOBIN 28.4 pg (27.0-33.0); MEAN CORPUSCULAR HGB CONC 32.4 g/dl (32.0-36.5); MEAN CORPUSCULAR VOLUME 87.7 fl (80.0-96.0); MONO # 0.5 10^3/uL (0.0-0.8); MONO % 9.3 % (2.0-8.0); NEUTROPHILS # 3.6 10^3/uL (1.5-8.5); NEUTROPHILS % 63.6 % (36.0-66.0); PLATELET COUNT, AUTOMATED 303 10^3/uL (150-450); RED BLOOD COUNT 3.59 10^6/uL (4.30-6.10); WHITE BLOOD COUNT 5.6 10^3/uL (4.0-10.0)
[2022-09-17 11:55] LABS: ALBUMIN 3.3 GM/DL (3.2-5.2); ALT/SGPT 25 U/L (12-78); BILIRUBIN,TOTAL 0.3 MG/DL (0.2-1.0); BLOOD UREA NITROGEN 20 MG/DL (7-18); CALCIUM LEVEL 8.9 MG/DL (8.8-10.2); CARBON DIOXIDE LEVEL 30 MEQ/L (21-32); CHLORIDE LEVEL 101 MEQ/L (98-107); CREATININE FOR GFR 0.89 MG/DL (0.70-1.30); GLOMERULAR FILTRATION RATE > 60.0 (>49); GLUCOSE, FASTING 83 MG/DL (70-100); MAGNESIUM LEVEL 2.2 MG/DL (1.8-2.4); POTASSIUM SERUM 3.7 MEQ/L (3.5-5.1); SODIUM LEVEL 137 MEQ/L (136-145); TOTAL PROTEIN 6.6 GM/DL (6.4-8.2)
== END ==
LOC: M WUC 08:18
PROVIDERS: ATTEND Nurse Practitioner
DX: C61 Malignant neoplasm of prostate (principal); C79.51 Secondary malignant neoplasm of bone

== ENCOUNTER → 2022-10-17 | Outpatient (CLI) | payer MEDICARE, BC, OTHER | LOC: M RAD 07:19 | PROVIDERS: ATTEND Specialist | DX: C61 Malignant neoplasm of prostate (principal); C79.51 Secondary malignant neoplasm of bone | CPT/HCPCS: 78306; A9503 ==

== ENCOUNTER → 2022-10-21 | Outpatient (CLI) | payer MEDICARE, BC, OTHER ==
[2022-10-21 10:32] LABS: BASO % 0.6 % (0.0-1.0); EOS # 0.2 10^3/uL (0.0-0.5); EOS % 3.7 % (0.0-3.0); HEMATOCRIT 33.1 % (42.0-52.0); HEMOGLOBIN 10.5 g/dl (13.5-17.5); LYMPH # 1.3 10^3/uL (1.5-5.0); LYMPH % 25.3 % (24.0-44.0); MEAN CORPUSCULAR HEMOGLOBIN 28.2 pg (27.0-33.0); MEAN CORPUSCULAR HGB CONC 31.7 g/dl (32.0-36.5); MEAN CORPUSCULAR VOLUME 88.7 fl (80.0-96.0); MONO # 0.5 10^3/uL (0.0-0.8); MONO % 9.3 % (2.0-8.0); NEUTROPHILS # 3.1 10^3/uL (1.5-8.5); NEUTROPHILS % 60.7 % (36.0-66.0); PLATELET COUNT, AUTOMATED 296 10^3/uL (150-450); RED BLOOD COUNT 3.73 10^6/uL (4.30-6.10); WHITE BLOOD COUNT 5.2 10^3/uL (4.0-10.0)
[2022-10-21 11:13] LABS: TOTAL IRON BINDING CAPACITY 315 UG/DL (250-425)
[2022-10-21 11:14] LABS: ALBUMIN 3.5 G/DL (3.2-5.2); ALKALINE PHOSPHATASE 102 U/L (46-116); ALT/SGPT 19 U/L (7.0-40); AST/SGOT 18 U/L (<34); BILIRUBIN,TOTAL 0.4 MG/DL (0.3-1.2); BLOOD UREA NITROGEN 18 MG/DL (9-23); CALCIUM LEVEL 8.9 MG/DL (8.3-10.6); CARBON DIOXIDE LEVEL 29 MMOL/L (20-31); CHLORIDE LEVEL 99 MMOL/L (98-107); CREATININE FOR GFR 0.95 MG/DL (0.70-1.30); GLOMERULAR FILTRATION RATE > 60.0 (>49); GLUCOSE, FASTING 94 MG/DL (74-106); IRON (FE) 38 UG/DL (65-175); PERCENT SATURATION 12.1 % (19.7-50.0); POTASSIUM SERUM 3.9 MMOL/L (3.5-5.1); SODIUM LEVEL 136 MMOL/L (136-145); TOTAL PROTEIN 6.8 G/DL (5.7-8.2)
[2022-10-21 11:15] LABS: FERRITIN 290.3 NG/ML (10.5-307.3)
[2022-10-21 14:41] LABS: FOLATE 13.95 NG/ML (>5.4)
== END ==
LOC: M WUC 08:12
PROVIDERS: ATTEND Specialist
DX: C61 Malignant neoplasm of prostate (principal)
CPT/HCPCS: 36415; 80053; 82728; 82746; 83520; 83550; 84252; 85025; G0103

== ENCOUNTER → 2022-11-27 | Outpatient (CLI) | payer MEDICARE, BC, OTHER | LOC: M ONCR 13:32 | PROVIDERS: ATTEND Radiology Radiation Oncology | DX: C61 Malignant neoplasm of prostate (principal); C79.51 Secondary malignant neoplasm of bone; R97.21 Rising PSA following treatment for malignant neoplasm of prostate; Z87.891 Personal history of nicotine dependence; Z79.899 Other long term (current) drug therapy; Z92.3 Personal history of irradiation ==

== ENCOUNTER → 2022-12-25 | Outpatient (CLI) | payer MEDICARE, BC, OTHER ==
[2022-12-25 10:08] LABS: BASO % 0.5 % (0.0-1.0); EOS # 0.1 10^3/uL (0.0-0.5); EOS % 2.2 % (0.0-3.0); HEMATOCRIT 30.7 % (42.0-52.0); HEMOGLOBIN 9.8 g/dl (13.5-17.5); LYMPH # 1.5 10^3/uL (1.5-5.0); LYMPH % 25.3 % (24.0-44.0); MEAN CORPUSCULAR HEMOGLOBIN 27.8 pg (27.0-33.0); MEAN CORPUSCULAR HGB CONC 31.9 g/dl (32.0-36.5); MEAN CORPUSCULAR VOLUME 87.2 fl (80.0-96.0); MONO # 0.6 10^3/uL (0.0-0.8); NEUTROPHILS # 3.6 10^3/uL (1.5-8.5); NEUTROPHILS % 61.7 % (36.0-66.0); PLATELET COUNT, AUTOMATED 288 10^3/uL (150-450); RED BLOOD COUNT 3.52 10^6/uL (4.30-6.10); WHITE BLOOD COUNT 5.8 10^3/uL (4.0-10.0)
[2022-12-25 10:37] LABS: ALBUMIN 3.2 G/DL (3.2-5.2); ALKALINE PHOSPHATASE 110 U/L (46-116); ALT/SGPT 20 U/L (7.0-40); AST/SGOT 20 U/L (<34); BILIRUBIN,TOTAL 0.4 MG/DL (0.3-1.2); BLOOD UREA NITROGEN 20 MG/DL (9-23); CALCIUM LEVEL 9.4 MG/DL (8.3-10.6); CARBON DIOXIDE LEVEL 30 MMOL/L (20-31); CHLORIDE LEVEL 100 MMOL/L (98-107); CREATININE FOR GFR 0.89 MG/DL (0.70-1.30); GLOMERULAR FILTRATION RATE > 60.0 (>49); GLUCOSE, FASTING 92 MG/DL (74-106); POTASSIUM SERUM 4.2 MMOL/L (3.5-5.1); SODIUM LEVEL 135 MMOL/L (136-145); TOTAL PROTEIN 6.8 G/DL (5.7-8.2)
== END ==
LOC: M WUC 08:18
PROVIDERS: ATTEND Specialist
DX: C61 Malignant neoplasm of prostate (principal)
CPT/HCPCS: 36415; 80053; 85025; G0103

== ENCOUNTER → 2023-02-25 | Outpatient (CLI) | payer MEDICARE, BC, OTHER | LOC: M ONCR 13:33 | PROVIDERS: ATTEND General Practice | DX: C61 Malignant neoplasm of prostate (principal); C79.51 Secondary malignant neoplasm of bone; Z87.891 Personal history of nicotine dependence; Z79.899 Other long term (current) drug therapy; Z92.3 Personal history of irradiation; Z92.21 Personal history of antineoplastic chemotherapy ==

== ENCOUNTER → 2023-03-18 | Outpatient (CLI) | payer MEDICARE, BC, OTHER ==
[2023-03-18 10:22] LABS: BASO # 0.1 10^3/uL (0.0-0.2); BASO % 0.9 % (0.0-1.0); EOS # 0.1 10^3/uL (0.0-0.5); EOS % 2.6 % (0.0-3.0); HEMATOCRIT 31.9 % (42.0-52.0); HEMOGLOBIN 10.3 g/dl (13.5-17.5); LYMPH # 1.5 10^3/uL (1.5-5.0); LYMPH % 28.3 % (24.0-44.0); MEAN CORPUSCULAR HEMOGLOBIN 28.2 pg (27.0-33.0); MEAN CORPUSCULAR HGB CONC 32.3 g/dl (32.0-36.5); MEAN CORPUSCULAR VOLUME 87.4 fl (80.0-96.0); MONO # 0.4 10^3/uL (0.0-0.8); MONO % 8.1 % (2.0-8.0); NEUTROPHILS # 3.2 10^3/uL (1.5-8.5); NEUTROPHILS % 59.7 % (36.0-66.0); PLATELET COUNT, AUTOMATED 363 10^3/uL (150-450); RED BLOOD COUNT 3.65 10^6/uL (4.30-6.10); WHITE BLOOD COUNT 5.4 10^3/uL (4.0-10.0)
[2023-03-18 10:53] LABS: ALBUMIN 3.3 G/DL (3.2-5.2); ALKALINE PHOSPHATASE 116 U/L (46-116); ALT/SGPT 25 U/L (7.0-40); AST/SGOT 19 U/L (<34); BILIRUBIN,TOTAL 0.3 MG/DL (0.3-1.2); BLOOD UREA NITROGEN 23 MG/DL (9-23); CALCIUM LEVEL 9.3 MG/DL (8.3-10.6); CARBON DIOXIDE LEVEL 29 MMOL/L (20-31); CHLORIDE LEVEL 103 MMOL/L (98-107); GLOMERULAR FILTRATION RATE > 60.0 (>49); GLUCOSE, FASTING 86 MG/DL (74-106); POTASSIUM SERUM 4.3 MMOL/L (3.5-5.1); SODIUM LEVEL 137 MMOL/L (136-145); TOTAL PROTEIN 6.8 G/DL (5.7-8.2)
== END ==
LOC: M WUC 08:04
PROVIDERS: ATTEND Specialist
DX: C61 Malignant neoplasm of prostate (principal)
CPT/HCPCS: 36415; 80053; 85025; G0103

== ENCOUNTER → 2023-05-26 | Outpatient (CLI) | payer MEDICARE, BC, OTHER | LOC: M WUC 08:16 | PROVIDERS: ATTEND General Practice | DX: C61 Malignant neoplasm of prostate (principal) ==

== ENCOUNTER → 2023-05-28 | Outpatient (CLI) | payer MEDICARE, BC | LOC: M ONCR 13:05 | PROVIDERS: ATTEND General Practice | DX: C61 Malignant neoplasm of prostate (principal); C79.51 Secondary malignant neoplasm of bone; R97.21 Rising PSA following treatment for malignant neoplasm of prostate; Z71.2 Person consulting for explanation of examination or test findings; Z79.818 Long term (current) use of other agents affecting estrogen receptors and estrogen levels; Z79.899 Other long term (current) drug therapy; Z87.891 Personal history of nicotine dependence; Z92.21 Personal history of antineoplastic chemotherapy ==

== ENCOUNTER → 2023-06-19 | Outpatient (CLI) | payer MEDICARE, BC ==
[2023-06-19 10:43] LABS: ALBUMIN 3.4 G/DL (3.2-5.2); ALKALINE PHOSPHATASE 145 U/L (46-116); ALT/SGPT 20 U/L (7.0-40); AST/SGOT 15 U/L (<34); BILIRUBIN,TOTAL 0.4 MG/DL (0.3-1.2); BLOOD UREA NITROGEN 14 MG/DL (9-23); CARBON DIOXIDE LEVEL 27 MMOL/L (20-31); CHLORIDE LEVEL 98 MMOL/L (98-107); CHOLESTEROL LEVEL 194 MG/DL (<200); CHOLESTEROL RISK RATIO 3.17 (<5); CREATININE FOR GFR 0.88 MG/DL (0.70-1.30); GLOMERULAR FILTRATION RATE > 60.0 (>49); GLUCOSE, FASTING 91 MG/DL (74-106); HDL CHOLESTEROL 61.1 MG/DL (>40); LDL CHOLESTEROL 115.3 MG/DL (<100); NON-HDL-C 132.9 MG/DL; POTASSIUM SERUM 4.3 MMOL/L (3.5-5.1); SODIUM LEVEL 135 MMOL/L (136-145); TOTAL PROTEIN 6.8 G/DL (5.7-8.2); TRIGLYCERIDES LEVEL 88 MG/DL (<150)
== END ==
LOC: M WUC 08:07
PROVIDERS: ATTEND Family Medicine
DX: I10 Essential (primary) hypertension (principal)

== ENCOUNTER → 2023-06-19 | Outpatient (CLI) | payer MEDICARE, BC ==
[2023-06-19 10:26] LABS: BASO % 0.6 % (0.0-1.0); EOS # 0.1 10^3/uL (0.0-0.5); EOS % 1.4 % (0.0-3.0); HEMATOCRIT 29.5 % (42.0-52.0); HEMOGLOBIN 9.5 g/dl (13.5-17.5); LYMPH # 1.6 10^3/uL (1.5-5.0); LYMPH % 23.5 % (24.0-44.0); MEAN CORPUSCULAR HEMOGLOBIN 27.2 pg (27.0-33.0); MEAN CORPUSCULAR HGB CONC 32.2 g/dl (32.0-36.5); MEAN CORPUSCULAR VOLUME 84.5 fl (80.0-96.0); MONO # 0.5 10^3/uL (0.0-0.8); MONO % 6.8 % (2.0-8.0); NEUTROPHILS # 4.4 10^3/uL (1.5-8.5); NEUTROPHILS % 67.2 % (36.0-66.0); PLATELET COUNT, AUTOMATED 373 10^3/uL (150-450); RED BLOOD COUNT 3.49 10^6/uL (4.30-6.10); WHITE BLOOD COUNT 6.6 10^3/uL (4.0-10.0)
[2023-06-19 10:42] LABS: ALBUMIN 3.4 G/DL (3.2-5.2); ALKALINE PHOSPHATASE 146 U/L (46-116); ALT/SGPT 20 U/L (7.0-40); AST/SGOT 15 U/L (<34); BILIRUBIN,TOTAL 0.4 MG/DL (0.3-1.2); BLOOD UREA NITROGEN 14 MG/DL (9-23); CALCIUM LEVEL 9.1 MG/DL (8.3-10.6); CARBON DIOXIDE LEVEL 27 MMOL/L (20-31); CHLORIDE LEVEL 99 MMOL/L (98-107); CREATININE FOR GFR 0.88 MG/DL (0.70-1.30); GLOMERULAR FILTRATION RATE > 60.0 (>49); GLUCOSE, FASTING 92 MG/DL (74-106); POTASSIUM SERUM 4.4 MMOL/L (3.5-5.1); SODIUM LEVEL 135 MMOL/L (136-145); TOTAL PROTEIN 6.8 G/DL (5.7-8.2)
[2023-06-19 10:56] LABS: PROSTATIC SPECIFIC AG MONITOR 156.71 NG/ML (< 4.00)
== END ==
LOC: M WUC 08:05
PROVIDERS: ATTEND Specialist
DX: C61 Malignant neoplasm of prostate (principal); I10 Essential (primary) hypertension

== ENCOUNTER 2023-07-08 07:37 | Outpatient (RCR) | payer MEDICARE, BC, OTHER ==
[~2023-07-08 07:37] MED LIST changes: +MECL-209 PO; -MECL1TAB31 PO; +OXYC-517 PO
[2023-07-15] MEDS ORDERED: DARO300T PO (15:14)
== END 2023-07-17 ==
LOC: M ONCR 07:37
PROVIDERS: ATTEND General Practice
DX: Z51.0 Encounter for antineoplastic radiation therapy (principal); C79.51 Secondary malignant neoplasm of bone; C61 Malignant neoplasm of prostate

== ENCOUNTER → 2023-08-27 | Outpatient (REF) | payer MEDICARE, BC, OTHER ==
[~2023-08-27] MED LIST changes: +ONDA-83 PO
== END ==
LOC: M LABWUC 17:51
PROVIDERS: ATTEND General Practice
DX: C61 Malignant neoplasm of prostate (principal)

== ENCOUNTER → 2023-08-28 | Outpatient (CLI) | payer MEDICARE, BC, MEDICAID | LOC: M ONCR 09:13 | PROVIDERS: ATTEND General Practice | DX: C79.51 Secondary malignant neoplasm of bone (principal) ==

== ENCOUNTER → 2023-11-04 | Outpatient (CLI) | payer MEDICARE, BC ==
[2023-11-04 20:07] LABS: BASO % 0.2 % (0.0-1.0); EOS % 0.8 % (0.0-3.0); HEMOGLOBIN 10.4 g/dl (13.5-17.5); LYMPH # 1.3 10^3/uL (1.5-5.0); LYMPH % 24.5 % (24.0-44.0); MEAN CORPUSCULAR HEMOGLOBIN 29.2 pg (27.0-33.0); MEAN CORPUSCULAR HGB CONC 32.5 g/dl (32.0-36.5); MEAN CORPUSCULAR VOLUME 89.9 fl (80.0-96.0); MONO # 0.4 10^3/uL (0.0-0.8); NEUTROPHILS # 3.6 10^3/uL (1.5-8.5); NEUTROPHILS % 67.3 % (36.0-66.0); PLATELET COUNT, AUTOMATED 240 10^3/uL (150-450); RED BLOOD COUNT 3.56 10^6/uL (4.30-6.10); WHITE BLOOD COUNT 5.3 10^3/uL (4.0-10.0)
[2023-11-04 20:32] LABS: ALBUMIN 3.7 G/DL (3.2-5.2); ALKALINE PHOSPHATASE 102 U/L (46-116); ALT/SGPT 13 U/L (7.0-40); AST/SGOT 13 U/L (<34); BILIRUBIN,TOTAL 0.3 MG/DL (0.3-1.2); BLOOD UREA NITROGEN 22 MG/DL (9-23); CALCIUM LEVEL 9.5 MG/DL (8.3-10.6); CARBON DIOXIDE LEVEL 27 MMOL/L (20-31); CHLORIDE LEVEL 104 MMOL/L (98-107); GLOMERULAR FILTRATION RATE > 60.0 (>49); GLUCOSE, FASTING 99 MG/DL (74-106); POTASSIUM SERUM 3.6 MMOL/L (3.5-5.1); SODIUM LEVEL 139 MMOL/L (136-145); TOTAL PROTEIN 6.8 G/DL (5.7-8.2)
== END ==
LOC: M WUC 15:33
PROVIDERS: ATTEND Specialist
DX: C61 Malignant neoplasm of prostate (principal)

== ENCOUNTER → 2023-11-04 | Outpatient (CLI) | payer MEDICARE, BC ==
[2023-11-04 20:06] LABS: BASO % 0.2 % (0.0-1.0); EOS % 0.6 % (0.0-3.0); HEMATOCRIT 32.4 % (42.0-52.0); HEMOGLOBIN 10.5 g/dl (13.5-17.5); LYMPH # 1.2 10^3/uL (1.5-5.0); LYMPH % 23.8 % (24.0-44.0); MEAN CORPUSCULAR HEMOGLOBIN 28.8 pg (27.0-33.0); MEAN CORPUSCULAR HGB CONC 32.4 g/dl (32.0-36.5); MEAN CORPUSCULAR VOLUME 88.8 fl (80.0-96.0); MONO # 0.4 10^3/uL (0.0-0.8); MONO % 7.6 % (2.0-8.0); NEUTROPHILS # 3.5 10^3/uL (1.5-8.5); NEUTROPHILS % 67.6 % (36.0-66.0); PLATELET COUNT, AUTOMATED 246 10^3/uL (150-450); RED BLOOD COUNT 3.65 10^6/uL (4.30-6.10); WHITE BLOOD COUNT 5.2 10^3/uL (4.0-10.0)
[2023-11-04 20:31] LABS: ALBUMIN 3.7 G/DL (3.2-5.2); ALKALINE PHOSPHATASE 101 U/L (46-116); ALT/SGPT 13 U/L (7.0-40); AST/SGOT 13 U/L (<34); BILIRUBIN,TOTAL 0.3 MG/DL (0.3-1.2); BLOOD UREA NITROGEN 22 MG/DL (9-23); CALCIUM LEVEL 9.4 MG/DL (8.3-10.6); CARBON DIOXIDE LEVEL 26 MMOL/L (20-31); CHLORIDE LEVEL 104 MMOL/L (98-107); CREATININE FOR GFR 0.89 MG/DL (0.70-1.30); GLOMERULAR FILTRATION RATE > 60.0 (>49); GLUCOSE, FASTING 97 MG/DL (74-106); POTASSIUM SERUM 3.5 MMOL/L (3.5-5.1); SODIUM LEVEL 138 MMOL/L (136-145); TOTAL PROTEIN 6.8 G/DL (5.7-8.2)
== END ==
LOC: M WUC 15:36
PROVIDERS: ATTEND General Practice
DX: C61 Malignant neoplasm of prostate (principal)

== ENCOUNTER → 2023-11-06 | Outpatient (CLI) | payer MEDICARE, BC ==
[~2023-11-06] MED LIST changes: +PLUVICTO (LU-177 VIPIVOTIDE TETRAXETAN) 27 MCI/ML VL (CHARGE IS PER MCI) IV STA
== END ==
LOC: M ONCR 14:18
PROVIDERS: ATTEND General Practice
DX: C79.51 Secondary malignant neoplasm of bone (principal); C61 Malignant neoplasm of prostate
CPT/HCPCS: 77300; 79101; A9607; G0463

== ENCOUNTER → 2023-12-16 | Outpatient (REF) | payer MEDICARE, BC ==
[~2023-12-16] MED LIST changes: -PLUVICTO (LU-177 VIPIVOTIDE TETRAXETAN) 27 MCI/ML VL (CHARGE IS PER MCI) IV STA
[2023-12-16 21:00] LABS: BASO % 0.7 % (0.0-1.0); EOS # 0.1 10^3/uL (0.0-0.5); EOS % 2.5 % (0.0-3.0); HEMATOCRIT 30.3 % (42.0-52.0); LYMPH # 1.1 10^3/uL (1.5-5.0); LYMPH % 19.6 % (24.0-44.0); MEAN CORPUSCULAR HEMOGLOBIN 29.6 pg (27.0-33.0); MEAN CORPUSCULAR VOLUME 89.6 fl (80.0-96.0); MONO # 0.6 10^3/uL (0.0-0.8); MONO % 10.2 % (2.0-8.0); NEUTROPHILS # 3.8 10^3/uL (1.5-8.5); NEUTROPHILS % 66.8 % (36.0-66.0); PLATELET COUNT, AUTOMATED 248 10^3/uL (150-450); RED BLOOD COUNT 3.38 10^6/uL (4.30-6.10); WHITE BLOOD COUNT 5.7 10^3/uL (4.0-10.0)
[2023-12-16 21:16] LABS: ALBUMIN 3.4 G/DL (3.2-5.2); ALKALINE PHOSPHATASE 84 U/L (46-116); ALT/SGPT 14 U/L (7.0-40); AST/SGOT 14 U/L (<34); BILIRUBIN,TOTAL 0.2 MG/DL (0.3-1.2); BLOOD UREA NITROGEN 15 MG/DL (9-23); CALCIUM LEVEL 9.3 MG/DL (8.3-10.6); CARBON DIOXIDE LEVEL 29 MMOL/L (20-31); CHLORIDE LEVEL 106 MMOL/L (98-107); CREATININE FOR GFR 0.92 MG/DL (0.70-1.30); GLOMERULAR FILTRATION RATE > 60.0 (>49); GLUCOSE, FASTING 82 MG/DL (74-106); POTASSIUM SERUM 3.9 MMOL/L (3.5-5.1); SODIUM LEVEL 139 MMOL/L (136-145); TOTAL PROTEIN 6.7 G/DL (5.7-8.2)
== END ==
LOC: M LAB REF 20:27
PROVIDERS: ATTEND General Practice
DX: C61 Malignant neoplasm of prostate (principal)

== ENCOUNTER → 2023-12-18 | Outpatient (CLI) | payer MEDICARE ==
[~2023-12-18] MED LIST changes: +PLUVICTO (LU-177 VIPIVOTIDE TETRAXETAN) 27 MCI/ML VL (CHARGE IS PER MCI) IV STA; +oxyCODONE 5MG TAB PO ONE
[2023-12-18 14:55] VITALS: BP 130/71; TEMP 98.9; O2SAT 97
[2023-12-18 15:20] VITALS: O2SAT 98
== END ==
LOC: M ONCR 14:35
PROVIDERS: ATTEND General Practice
DX: C61 Malignant neoplasm of prostate (principal); C79.51 Secondary malignant neoplasm of bone
CPT/HCPCS: 79101; A9607; G0463

== ENCOUNTER → 2024-01-27 | Outpatient (REF) | payer MEDICARE ==
[~2024-01-27] MED LIST changes: -PLUVICTO (LU-177 VIPIVOTIDE TETRAXETAN) 27 MCI/ML VL (CHARGE IS PER MCI) IV STA; -oxyCODONE 5MG TAB PO ONE
[2024-01-27 21:04] LABS: BASO % 0.4 % (0.0-1.0); EOS # 0.1 10^3/uL (0.0-0.5); EOS % 1.6 % (0.0-3.0); HEMOGLOBIN 9.7 g/dl (13.5-17.5); LYMPH # 1.5 10^3/uL (1.5-5.0); LYMPH % 26.7 % (24.0-44.0); MEAN CORPUSCULAR HEMOGLOBIN 31.1 pg (27.0-33.0); MEAN CORPUSCULAR HGB CONC 33.4 g/dl (32.0-36.5); MEAN CORPUSCULAR VOLUME 92.9 fl (80.0-96.0); MONO # 0.6 10^3/uL (0.0-0.8); MONO % 9.9 % (2.0-8.0); NEUTROPHILS # 3.4 10^3/uL (1.5-8.5); NEUTROPHILS % 61.2 % (36.0-66.0); PLATELET COUNT, AUTOMATED 226 10^3/uL (150-450); RED BLOOD COUNT 3.12 10^6/uL (4.30-6.10); WHITE BLOOD COUNT 5.6 10^3/uL (4.0-10.0)
[2024-01-27 21:30] LABS: ALBUMIN 3.6 G/DL (3.2-5.2); ALKALINE PHOSPHATASE 83 U/L (46-116); ALT/SGPT 13 U/L (7.0-40); AST/SGOT 12 U/L (<34); BILIRUBIN,TOTAL 0.3 MG/DL (0.3-1.2); BLOOD UREA NITROGEN 17 MG/DL (9-23); CALCIUM LEVEL 8.6 MG/DL (8.3-10.6); CARBON DIOXIDE LEVEL 28 MMOL/L (20-31); CHLORIDE LEVEL 105 MMOL/L (98-107); CREATININE FOR GFR 0.91 MG/DL (0.70-1.30); GLOMERULAR FILTRATION RATE > 60.0 (>49); GLUCOSE, FASTING 87 MG/DL (74-106); POTASSIUM SERUM 3.5 MMOL/L (3.5-5.1); SODIUM LEVEL 139 MMOL/L (136-145); TOTAL PROTEIN 6.7 G/DL (5.7-8.2)
== END ==
LOC: M LAB REF 20:34
PROVIDERS: ATTEND General Practice
DX: C61 Malignant neoplasm of prostate (principal)

== ENCOUNTER → 2024-01-29 | Outpatient (CLI) | payer BC, MEDICARE ==
[2024-01-29] MEDS: PLUVICTO (LU-177 VIPIVOTIDE TETRAXETAN) 27 MCI/ML VL (CHARGE IS PER MCI) IV STA (15:18)
== END ==
LOC: M ONCR 14:43
PROVIDERS: ATTEND General Practice
DX: C61 Malignant neoplasm of prostate (principal); C79.51 Secondary malignant neoplasm of bone; Z79.891 Long term (current) use of opiate analgesic
CPT/HCPCS: 79101; A9607; G0463

== ENCOUNTER → 2024-02-05 | Outpatient (REF) | payer MEDICARE | LOC: M SMT 12:15 → M LABWUC 12:15 | PROVIDERS: ATTEND Urology | DX: C61 Malignant neoplasm of prostate (principal) ==

== ENCOUNTER → 2024-03-09 | Outpatient (CLI) | payer MEDICARE ==
[2024-03-09 11:02] LABS: BASO % 0.7 % (0.0-1.0); EOS # 0.1 10^3/uL (0.0-0.5); EOS % 3.4 % (0.0-3.0); HEMATOCRIT 28.9 % (42.0-52.0); HEMOGLOBIN 9.7 g/dl (13.5-17.5); LYMPH # 1.1 10^3/uL (1.5-5.0); LYMPH % 26.6 % (24.0-44.0); MEAN CORPUSCULAR HEMOGLOBIN 31.3 pg (27.0-33.0); MEAN CORPUSCULAR HGB CONC 33.6 g/dl (32.0-36.5); MEAN CORPUSCULAR VOLUME 93.2 fl (80.0-96.0); MONO # 0.4 10^3/uL (0.0-0.8); MONO % 9.4 % (2.0-8.0); NEUTROPHILS # 2.5 10^3/uL (1.5-8.5); NEUTROPHILS % 59.7 % (36.0-66.0); PLATELET COUNT, AUTOMATED 173 10^3/uL (150-450); WHITE BLOOD COUNT 4.2 10^3/uL (4.0-10.0)
[2024-03-09 11:40] LABS: ALBUMIN 3.7 G/DL (3.2-5.2); ALKALINE PHOSPHATASE 92 U/L (46-116); ALT/SGPT 12 U/L (7.0-40); AST/SGOT 17 U/L (<34); BILIRUBIN,TOTAL 0.3 MG/DL (0.3-1.2); BLOOD UREA NITROGEN 24 MG/DL (9-23); CALCIUM LEVEL 9.5 MG/DL (8.3-10.6); CARBON DIOXIDE LEVEL 27 MMOL/L (20-31); CHLORIDE LEVEL 101 MMOL/L (98-107); CREATININE FOR GFR 1.13 MG/DL (0.70-1.30); GLOMERULAR FILTRATION RATE > 60.0 (>49); GLUCOSE, FASTING 100 MG/DL (74-106); POTASSIUM SERUM 4.2 MMOL/L (3.5-5.1); PROSTATIC SPECIFIC AG MONITOR 43.95 NG/ML (< 4.00); SODIUM LEVEL 136 MMOL/L (136-145); TOTAL PROTEIN 6.9 G/DL (5.7-8.2)
== END ==
LOC: M WUC 08:01
PROVIDERS: ATTEND General Practice
DX: C61 Malignant neoplasm of prostate (principal)

== ENCOUNTER → 2024-03-11 | Outpatient (CLI) | payer MEDICARE ==
[~2024-03-11] MED LIST changes: +PLUVICTO (LU-177 VIPIVOTIDE TETRAXETAN) 27 MCI/ML VL (CHARGE IS PER MCI) IV ONE
== END ==
LOC: M ONCR 14:08
PROVIDERS: ATTEND General Practice
DX: C61 Malignant neoplasm of prostate (principal); C79.51 Secondary malignant neoplasm of bone
CPT/HCPCS: 79101; A9607; G0463

== ENCOUNTER → 2024-04-20 | Outpatient (CLI) | payer MEDICARE, MEDICAID ==
[~2024-04-20] MED LIST changes: -PLUVICTO (LU-177 VIPIVOTIDE TETRAXETAN) 27 MCI/ML VL (CHARGE IS PER MCI) IV ONE
[2024-04-20 10:56] LABS: ALBUMIN 3.5 G/DL (3.2-5.2); ALKALINE PHOSPHATASE 79 U/L (46-116); ALT/SGPT 14 U/L (7.0-40); AST/SGOT 11 U/L (<34); BILIRUBIN,TOTAL 0.3 MG/DL (0.3-1.2); BLOOD UREA NITROGEN 18 MG/DL (9-23); CALCIUM LEVEL 9.5 MG/DL (8.3-10.6); CARBON DIOXIDE LEVEL 28 MMOL/L (20-31); CHLORIDE LEVEL 101 MMOL/L (98-107); CREATININE FOR GFR 1.03 MG/DL (0.70-1.30); GLOMERULAR FILTRATION RATE > 60.0 (>49); GLUCOSE, FASTING 97 MG/DL (74-106); POTASSIUM SERUM 3.8 MMOL/L (3.5-5.1); PROSTATIC SPECIFIC AG MONITOR 48.48 NG/ML (< 4.00); SODIUM LEVEL 134 MMOL/L (136-145); TOTAL PROTEIN 6.4 G/DL (5.7-8.2)
[2024-04-20 11:15] LABS: BASO % 0.7 % (0.0-1.0); EOS # 0.1 10^3/uL (0.0-0.5); EOS % 3.3 % (0.0-3.0); HEMATOCRIT 26.1 % (42.0-52.0); HEMOGLOBIN 8.9 g/dl (13.5-17.5); LYMPH % 31.8 % (24.0-44.0); MEAN CORPUSCULAR HEMOGLOBIN 31.6 pg (27.0-33.0); MEAN CORPUSCULAR HGB CONC 34.1 g/dl (32.0-36.5); MEAN CORPUSCULAR VOLUME 92.6 fl (80.0-96.0); MONO # 0.3 10^3/uL (0.0-0.8); MONO % 8.9 % (2.0-8.0); NEUTROPHILS # 1.7 10^3/uL (1.5-8.5); PLATELET COUNT, AUTOMATED 130 10^3/uL (150-450); RED BLOOD COUNT 2.82 10^6/uL (4.30-6.10); WHITE BLOOD COUNT 3.1 10^3/uL (4.0-10.0)
== END ==
LOC: M WUC 08:07
PROVIDERS: ATTEND General Practice
DX: C61 Malignant neoplasm of prostate (principal)

== ENCOUNTER → 2024-04-22 | Outpatient (CLI) | payer MEDICARE ==
[2024-04-22] MEDS: PLUVICTO (LU-177 VIPIVOTIDE TETRAXETAN) 27 MCI/ML VL (CHARGE IS PER MCI) IV STA (14:45)
== END ==
LOC: M ONCR 14:02
PROVIDERS: ATTEND General Practice
DX: C61 Malignant neoplasm of prostate (principal); C79.51 Secondary malignant neoplasm of bone
CPT/HCPCS: 79101; A9607; G0463

== ENCOUNTER → 2024-06-08 | Outpatient (CLI) | payer MEDICARE ==
[2024-06-08 12:08] LABS: BASO % 1.4 % (0.0-1.0); EOS % 1.1 % (0.0-3.0); HEMATOCRIT 23.8 % (42.0-52.0); HEMOGLOBIN 8.1 g/dl (13.5-17.5); LYMPH # 0.8 10^3/uL (1.5-5.0); LYMPH % 27.7 % (24.0-44.0); MEAN CORPUSCULAR HEMOGLOBIN 31.9 pg (27.0-33.0); MEAN CORPUSCULAR VOLUME 93.7 fl (80.0-96.0); MONO # 0.3 10^3/uL (0.0-0.8); MONO % 9.8 % (2.0-8.0); NEUTROPHILS # 1.7 10^3/uL (1.5-8.5); PLATELET COUNT, AUTOMATED 133 10^3/uL (150-450); RED BLOOD COUNT 2.54 10^6/uL (4.30-6.10); WHITE BLOOD COUNT 2.9 10^3/uL (4.0-10.0)
[2024-06-08 12:40] LABS: PROSTATIC SPECIFIC AG MONITOR 48.75 NG/ML (< 4.00)
[2024-06-08 12:42] LABS: ALBUMIN 3.5 G/DL (3.2-5.2); ALKALINE PHOSPHATASE 89 U/L (46-116); ALT/SGPT 10 U/L (7.0-40); AST/SGOT 9 U/L (<34); BILIRUBIN,TOTAL 0.4 MG/DL (0.3-1.2); BLOOD UREA NITROGEN 20 MG/DL (9-23); CALCIUM LEVEL 9.6 MG/DL (8.3-10.6); CARBON DIOXIDE LEVEL 30 MMOL/L (20-31); CHLORIDE LEVEL 99 MMOL/L (98-107); CREATININE FOR GFR 1.15 MG/DL (0.70-1.30); GLOMERULAR FILTRATION RATE > 60.0 (>49); GLUCOSE, FASTING 99 MG/DL (74-106); POTASSIUM SERUM 4.1 MMOL/L (3.5-5.1); SODIUM LEVEL 132 MMOL/L (136-145); TOTAL PROTEIN 6.3 G/DL (5.7-8.2)
== END ==
LOC: M WUC 08:12
PROVIDERS: ATTEND General Practice
DX: C61 Malignant neoplasm of prostate (principal)

== ENCOUNTER → 2024-06-11 | Outpatient (CLI) | payer MEDICARE, MEDICAID ==
[~2024-06-11] MED LIST changes: +MELO10CA2 PO
== END ==
LOC: M ONCR 08:13
PROVIDERS: ATTEND General Practice
DX: C61 Malignant neoplasm of prostate (principal); C79.51 Secondary malignant neoplasm of bone; R31.9 Hematuria, unspecified; Z79.818 Long term (current) use of other agents affecting estrogen receptors and estrogen levels; Z79.899 Other long term (current) drug therapy; Z87.891 Personal history of nicotine dependence; Z92.29 Personal history of other drug therapy

== ENCOUNTER → 2024-06-22 | Outpatient (REF) | payer MEDICARE, MEDICAID ==
[~2024-06-22] MED LIST changes: -MELO10CA2 PO
[2024-06-22 18:13] LABS: APPEARANCE, URINE CLOUDY (CLEAR); BACTERIA, URINE AUTO NEGATIVE (NEGATIVE); BILIRUBIN, URINE AUTO NEGATIVE (NEGATIVE); BLOOD, URINE BLOOD 3+ (NEGATIVE); COLOR, URINE AMBER (YELLOW); GLUCOSE, URINE (UA) AUTO NEGATIVE (NEGATIVE); KETONE, URINE AUTO NEGATIVE (NEGATIVE); LEUKOCYTE ESTERASE, URINE AUTO NEGATIVE (NEGATIVE); MUCUS, URINE SMALL (NEGATIVE); NITRITE, URINE AUTO NEGATIVE (NEGATIVE); PROTEIN, URINE AUTO 2+ mg/dL (NEGATIVE); RBC, URINE AUTO TNTC /HPF (0-3); SPECIFIC GRAVITY URINE AUTO 1.016 (1.002-1.035); SQUAMOUS EPITHELIAL CELL UR AU 2 /HPF (0-6); UROBILINOGEN, URINE AUTO 0.2 mg/dL (0.0-2.0); WBC, URINE AUTO 4 /HPF (0-3)
== END ==
LOC: M SMT 17:11
PROVIDERS: ATTEND Urology
DX: R31.0 Gross hematuria (principal)

== ENCOUNTER → 2024-07-13 | Outpatient (CLI) | payer MEDICARE, MEDICAID | LOC: M RAD 08:48 | PROVIDERS: ATTEND Family Medicine | DX: M54.9 Dorsalgia, unspecified (principal) ==

== ENCOUNTER → 2024-08-09 | Outpatient (CLI) | payer MEDICARE, MEDICAID ==
[~2024-08-09] MED LIST changes: +MELO10CA2 PO
== END ==
LOC: M RAD 10:14
PROVIDERS: ATTEND General Practice
DX: C79.51 Secondary malignant neoplasm of bone (principal); K40.90 Unilateral inguinal hernia, without obstruction or gangrene, not specified as recurrent; M54.50 Low back pain, unspecified; C61 Malignant neoplasm of prostate

== ENCOUNTER 2024-08-13 13:39 | Outpatient (RCR) | payer MEDICARE, MEDICAID | END 2024-08-16 | LOC: M ONCR 13:39 | PROVIDERS: ATTEND General Practice | DX: Z51.0 Encounter for antineoplastic radiation therapy (principal); C79.51 Secondary malignant neoplasm of bone ==

== ENCOUNTER 2024-08-17 15:31 | Outpatient (RCR) | payer MEDICARE, MEDICAID ==
[2024-08-19] MEDS ORDERED: HYDR4TAB PO (09:43)
[2024-08-27] MEDS ORDERED: OXYC-517 PO (10:45)
[2024-08-29] MEDS ORDERED: LISI10TA22 PO (15:00)
[2024-08-29] MEDS ORDERED: SELF1KIT MC (15:01)
[2024-08-29] MEDS ORDERED: VITA500C24 PO (15:03)
[2024-08-29] MEDS ORDERED: SENO8.6T10 PO (15:03)
[2024-09-10] MEDS ORDERED: LIDO5TD TOP (08:35)
== END 2024-09-16 ==
LOC: M ONCR 15:31
PROVIDERS: ATTEND General Practice
DX: Z51.0 Encounter for antineoplastic radiation therapy (principal); C61 Malignant neoplasm of prostate

== ENCOUNTER 2024-08-25 09:16 | Outpatient (RCR) | payer MEDICARE, MEDICAID ==
[~2024-08-25 09:16] MED LIST changes: +HYDR4TAB PO
[2024-08-27] MEDS ORDERED: OXYC-517 PO (10:45)
[2024-08-29] MEDS ORDERED: LISI10TA22 PO (15:00)
[2024-08-29] MEDS ORDERED: SELF1KIT MC (15:01)
[2024-08-29] MEDS ORDERED: VITA500C24 PO (15:03)
[2024-08-29] MEDS ORDERED: SENO8.6T10 PO (15:03)
[2024-09-10] MEDS ORDERED: LIDO5TD TOP (08:35)
== END 2024-09-16 ==
LOC: M ONCR 09:16
PROVIDERS: ATTEND General Practice
DX: Z51.0 Encounter for antineoplastic radiation therapy (principal); C79.51 Secondary malignant neoplasm of bone

== ENCOUNTER 2024-08-27 06:47 | Observation (INO) | payer MEDICARE, MEDICAID ==
[~2024-08-27] VITALS: Ht 177.8 cm; Wt 90.9 kg
[2024-08-27] MEDS: LIDOCAINE 2% 5ML JELLY UROJET TOP ONE (08:05)
[2024-08-27 08:28] LABS: BASO % 0.3 % (0.0-1.0); HEMATOCRIT 21.6 % (42.0-52.0); HEMOGLOBIN 7.7 g/dl (13.5-17.5); LYMPH # 0.2 10^3/uL (1.5-5.0); LYMPH % 5.3 % (24.0-44.0); MEAN CORPUSCULAR HEMOGLOBIN 32.4 pg (27.0-33.0); MEAN CORPUSCULAR HGB CONC 35.6 g/dl (32.0-36.5); MEAN CORPUSCULAR VOLUME 90.8 fl (80.0-96.0); MONO # 0.2 10^3/uL (0.0-0.8); NEUTROPHILS # 3.5 10^3/uL (1.5-8.5); NEUTROPHILS % 87.9 % (36.0-66.0); PLATELET COUNT, AUTOMATED 132 10^3/uL (150-450); RED BLOOD COUNT 2.38 10^6/uL (4.30-6.10)
[2024-08-27 08:57] LABS: BLOOD UREA NITROGEN 21 MG/DL (9-23); CALCIUM LEVEL 10.1 MG/DL (8.3-10.6); CARBON DIOXIDE LEVEL 26 MMOL/L (20-31); CHLORIDE LEVEL 96 MMOL/L (98-107); CREATININE FOR GFR 1.07 MG/DL (0.70-1.30); GLOMERULAR FILTRATION RATE > 60.0 (>49); GLUCOSE, FASTING 133 MG/DL (74-106); POTASSIUM SERUM 4.1 MMOL/L (3.5-5.1); SODIUM LEVEL 127 MMOL/L (136-145)
[2024-08-27] MEDS: NS 1,000 ML IV ONE (10:30)
[2024-08-27] MEDS ORDERED: OXYC-517 PO (10:45)
[2024-08-27] MEDS ORDERED: HOME MED LIST COMPLETE! XX SCH (10:50)
[2024-08-27] MEDS ORDERED: HYDROmorphone 4MG TABLET PO PRN ×2 (13:00→18:15)
[2024-08-27] MEDS ORDERED: oxyCODONE 5MG TAB PO PRN (13:00)
[2024-08-27 14:01] LABS: OSMOLALITY SERUM 276 MOSM/KG (280-301)
[2024-08-27] MEDS: HYDROmorphone 2 MG TAB PO PRN (16:01)
[2024-08-27 18:00] VITALS: BP 124/89; TEMP 97.9; O2SAT 96
[2024-08-27 18:51] LABS: MEAN CORPUSCULAR HEMOGLOBIN 32.4 pg (27.0-33.0); MEAN CORPUSCULAR HGB CONC 35.7 g/dl (32.0-36.5); MEAN CORPUSCULAR VOLUME 90.7 fl (80.0-96.0); PLATELET COUNT, AUTOMATED 113 10^3/uL (150-450); RED BLOOD COUNT 2.16 10^6/uL (4.30-6.10); WHITE BLOOD COUNT 3.5 10^3/uL (4.0-10.0)
[2024-08-27 19:02] LABS: HEMATOCRIT 19.6 % (42.0-52.0)
[2024-08-27 19:24] VITALS: BP 157/86; TEMP 97.2; O2SAT 96
[2024-08-27] MEDS: oxyBUTYnin 5 MG TAB PO SCH (20:46)
[2024-08-28] VITALS (14 sets, daily range): BP systolic 98–158; BP diastolic 51–81; TEMP 97.2–97.5; O2SAT 94–97
[2024-08-28] MEDS: ONDANSETRON 4MG ORAL DISINTEGRATING TAB PO PRN (00:09)
[2024-08-28 00:38] LABS: MEAN CORPUSCULAR HEMOGLOBIN 32.7 pg (27.0-33.0); MEAN CORPUSCULAR HGB CONC 35.7 g/dl (32.0-36.5); MEAN CORPUSCULAR VOLUME 91.5 fl (80.0-96.0); PLATELET COUNT, AUTOMATED 108 10^3/uL (150-450); RED BLOOD COUNT 1.99 10^6/uL (4.30-6.10)
[2024-08-28 00:45] LABS: HEMATOCRIT 18.2 % (42.0-52.0); HEMOGLOBIN 6.5 g/dl (13.5-17.5)
[2024-08-28] MEDS ORDERED: BISACODYL 10MG SUPP PR PRN (03:55)
[2024-08-28] MEDS: BISACODYL 10MG SUPP PR ONE (08:00)
[2024-08-28 08:56] LABS: HEMATOCRIT 25.5 % (42.0-52.0)
[2024-08-28 08:57] LABS: HEMOGLOBIN 8.9 g/dl (13.5-17.5)
[2024-08-28] MEDS: SENOKOT S TAB PO SCH (09:00)
[2024-08-28] MEDS: MIRALAX *UNIT DOSE* 17GM PACKET PO SCH (09:00)
[2024-08-28 09:20] LABS: ALBUMIN 3.1 G/DL (3.2-5.2); ALKALINE PHOSPHATASE 96 U/L (46-116); ALT/SGPT 9 U/L (7.0-40); AST/SGOT 22 U/L (<34); BILIRUBIN,TOTAL 1.6 MG/DL (0.3-1.2); BLOOD UREA NITROGEN 18 MG/DL (9-23); CALCIUM LEVEL 9.3 MG/DL (8.3-10.6); CARBON DIOXIDE LEVEL 26 MMOL/L (20-31); CHLORIDE LEVEL 99 MMOL/L (98-107); CREATININE FOR GFR 0.97 MG/DL (0.70-1.30); GLOMERULAR FILTRATION RATE > 60.0 (>49); GLUCOSE, FASTING 99 MG/DL (74-106); POTASSIUM SERUM 3.9 MMOL/L (3.5-5.1); SODIUM LEVEL 131 MMOL/L (136-145); TOTAL PROTEIN 5.9 G/DL (5.7-8.2)
[2024-08-28 09:32] LABS: PROCALCITONIN 0.06 ng/ml
[2024-08-28 10:23] LABS: OSMOLALITY SERUM 274 MOSM/KG (280-301)
[2024-08-28 11:07] LABS: OSMOLALITY URINE 294 MOSM/KG (50-1400)
[2024-08-28 11:27] LABS: SODIUM,RANDOM URINE 143 MMOL/L
[2024-08-28 18:23] LABS: HEMATOCRIT 24.6 % (42.0-52.0); HEMOGLOBIN 8.9 g/dl (13.5-17.5)
[2024-08-28 18:50] LABS: BLOOD UREA NITROGEN 22 MG/DL (9-23); CALCIUM LEVEL 9.2 MG/DL (8.3-10.6); CARBON DIOXIDE LEVEL 25 MMOL/L (20-31); CHLORIDE LEVEL 99 MMOL/L (98-107); CREATININE FOR GFR 0.98 MG/DL (0.70-1.30); GLOMERULAR FILTRATION RATE > 60.0 (>49); GLUCOSE, FASTING 91 MG/DL (74-106); POTASSIUM SERUM 3.8 MMOL/L (3.5-5.1); SODIUM LEVEL 131 MMOL/L (136-145)
[2024-08-28 18:53] LABS: THYROID STIMULATING HORMONE 13.527 uIU/ML (0.55-4.78)
[2024-08-29 03:34] VITALS: BP 118/71; TEMP 97.5; O2SAT 94
[2024-08-29] MEDS: COSYNTROPIN 0.25 MG/ML 1ML VIAL IV ONE (06:05)
[2024-08-29 06:32] LABS: HEMATOCRIT 25.1 % (42.0-52.0); HEMOGLOBIN 8.8 g/dl (13.5-17.5); MEAN CORPUSCULAR HEMOGLOBIN 30.8 pg (27.0-33.0); MEAN CORPUSCULAR HGB CONC 35.1 g/dl (32.0-36.5); MEAN CORPUSCULAR VOLUME 87.8 fl (80.0-96.0); RED BLOOD COUNT 2.86 10^6/uL (4.30-6.10); WHITE BLOOD COUNT 2.2 10^3/uL (4.0-10.0)
[2024-08-29 07:02] LABS: BLOOD UREA NITROGEN 19 MG/DL (9-23); CALCIUM LEVEL 9.1 MG/DL (8.3-10.6); CARBON DIOXIDE LEVEL 26 MMOL/L (20-31); CHLORIDE LEVEL 100 MMOL/L (98-107); GLOMERULAR FILTRATION RATE > 60.0 (>49); GLUCOSE, FASTING 97 MG/DL (74-106); POTASSIUM SERUM 3.7 MMOL/L (3.5-5.1); SODIUM LEVEL 131 MMOL/L (136-145)
[2024-08-29 07:06] LABS: CORTISOL AM 30.8 UG/DL (4.3-22.4)
[2024-08-29 07:26] LABS: PLATELET COUNT, AUTOMATED 95 10^3/uL (150-450)
[2024-08-29] MEDS: carisoprodoL 350 MG TAB PO ONE (11:32)
[2024-08-29] MEDS: LIDOCAINE 5% (LIDODERM) PATCH TD SCH (11:33)
[2024-08-29 12:00] VITALS: BP 146/81; TEMP 97; O2SAT 96
[2024-08-29] MEDS ORDERED: LISI10TA22 PO (15:00)
[2024-08-29] MEDS ORDERED: SELF1KIT MC (15:01)
[2024-08-29] MEDS ORDERED: VITA500C24 PO (15:03)
[2024-08-29] MEDS ORDERED: SENO8.6T10 PO (15:03)
[2024-08-29 15:27] LABS: FREE T3 2.6 PG/ML (2.3-4.2); FREE T4 1.03 NG/DL (0.89-1.76)
[2024-08-30] MEDS ORDERED: LIDOCAINE 5% (LIDODERM) PATCH TD SCH (09:00)
== END 2024-08-29 15:22 | disposition home or self-care (01) ==
LOC: M ED 06:47 → M ED INP 06:48 → M MSPAV 17:48
PROVIDERS: ADMIT Internal Medicine; ATTEND General Practice
DX: R31.0 Gross hematuria (principal); D62 Acute posthemorrhagic anemia; C61 Malignant neoplasm of prostate; C79.51 Secondary malignant neoplasm of bone; Z92.3 Personal history of irradiation; M54.2 Cervicalgia; D61.818 Other pancytopenia; E87.1 Hypo-osmolality and hyponatremia; R94.6 Abnormal results of thyroid function studies; M79.18 Myalgia, other site; I10 Essential (primary) hypertension; M19.90 Unspecified osteoarthritis, unspecified site; M75.00 Adhesive capsulitis of unspecified shoulder; Z90.79 Acquired absence of other genital organ(s); Z80.42 Family history of malignant neoplasm of prostate; Z82.49 Family history of ischemic heart disease and other diseases of the circulatory system; Z82.41 Family history of sudden cardiac death; Z87.891 Personal history of nicotine dependence; Z79.899 Other long term (current) drug therapy
CPT/HCPCS: 36415; 71046; 74018; 80048; 80053; 80400; 81001; 82533; 83605; 83930; 83935; 84145; 84300; 84439; 84443; 84481; 85014; 85018; 85025; 85027; 85049; 85055; 86850; 86900; 86901; 86920; 93041; 96374; 97162; 99285; G0378; J0834; P9016

== ENCOUNTER → 2024-09-08 | Outpatient (CLI) | payer MEDICARE, MEDICAID ==
[~2024-09-08] MED LIST changes: +LIDO5TD TOP; +LISI10TA22 PO; +SELF1KIT MC; +SENO8.6T10 PO; +VITA500C24 PO
[2024-09-08 10:58] LABS: BASO % 0.4 % (0.0-1.0); EOS % 1.1 % (0.0-3.0); HEMATOCRIT 25.8 % (42.0-52.0); HEMOGLOBIN 8.9 g/dl (13.5-17.5); LYMPH # 0.3 10^3/uL (1.5-5.0); MEAN CORPUSCULAR HEMOGLOBIN 31.8 pg (27.0-33.0); MEAN CORPUSCULAR HGB CONC 34.5 g/dl (32.0-36.5); MEAN CORPUSCULAR VOLUME 92.1 fl (80.0-96.0); MONO # 0.3 10^3/uL (0.0-0.8); NEUTROPHILS # 2.1 10^3/uL (1.5-8.5); NEUTROPHILS % 75.1 % (36.0-66.0); WHITE BLOOD COUNT 2.8 10^3/uL (4.0-10.0)
[2024-09-08 10:59] LABS: PLATELET COUNT, AUTOMATED 72 10^3/uL (150-450)
[2024-09-08 11:15] LABS: THYROID STIMULATING HORMONE 8.875 uIU/ML (0.55-4.78)
[2024-09-08 11:17] LABS: BLOOD UREA NITROGEN 20 MG/DL (9-23); CALCIUM LEVEL 9.4 MG/DL (8.3-10.6); CARBON DIOXIDE LEVEL 28 MMOL/L (20-31); CHLORIDE LEVEL 101 MMOL/L (98-107); CREATININE FOR GFR 0.96 MG/DL (0.70-1.30); FREE T4 1.07 NG/DL (0.89-1.76); GLOMERULAR FILTRATION RATE > 60.0 (>49); GLUCOSE, FASTING 89 MG/DL (74-106); POTASSIUM SERUM 4.2 MMOL/L (3.5-5.1); SODIUM LEVEL 133 MMOL/L (136-145)
[2024-09-08 12:26] LABS: FREE T3 2.9 PG/ML (2.3-4.2)
== END ==
LOC: M WUC 08:33
PROVIDERS: ATTEND Family Medicine
DX: E87.1 Hypo-osmolality and hyponatremia (principal); E07.9 Disorder of thyroid, unspecified; D64.9 Anemia, unspecified; C61 Malignant neoplasm of prostate

== ENCOUNTER → 2024-09-08 | Outpatient (CLI) | payer MEDICARE, MEDICAID | LOC: M WUC 08:37 | PROVIDERS: ATTEND General Practice | DX: C61 Malignant neoplasm of prostate (principal) ==

== ENCOUNTER → 2024-09-10 | Outpatient (CLI) | payer MEDICARE, MEDICAID | LOC: M ONCR 08:03 | PROVIDERS: ATTEND General Practice | DX: C61 Malignant neoplasm of prostate (principal); C79.51 Secondary malignant neoplasm of bone; Z79.818 Long term (current) use of other agents affecting estrogen receptors and estrogen levels; Z79.899 Other long term (current) drug therapy; Z87.891 Personal history of nicotine dependence; Z92.29 Personal history of other drug therapy; Z92.3 Personal history of irradiation ==

== ENCOUNTER → 2024-10-12 | Outpatient (CLI) | payer MEDICARE, MEDICAID ==
[~2024-10-12] VITALS: Ht 177.8 cm; Wt 83.7 kg
[~2024-10-12] MED LIST changes: +IBUP1TAB7 PO; +OXYC10TA12 PO
[2024-10-12 08:03] VITALS: BP 144/85; O2SAT 98
== END ==
LOC: M PAL 07:53
PROVIDERS: ATTEND Nurse Practitioner Adult Health
DX: G89.3 Neoplasm related pain (acute) (chronic) (principal); C61 Malignant neoplasm of prostate; C79.51 Secondary malignant neoplasm of bone; Z79.818 Long term (current) use of other agents affecting estrogen receptors and estrogen levels; Z92.3 Personal history of irradiation; M54.2 Cervicalgia; Z66 Do not resuscitate; Z51.5 Encounter for palliative care; Z79.899 Other long term (current) drug therapy; Z80.42 Family history of malignant neoplasm of prostate

== ENCOUNTER → 2024-10-19 | Outpatient (CLI) | payer MEDICARE, MEDICAID | LOC: M ONCR 08:26 | PROVIDERS: ATTEND General Practice | DX: C61 Malignant neoplasm of prostate (principal); C79.51 Secondary malignant neoplasm of bone; Z92.3 Personal history of irradiation ==

== ENCOUNTER → 2024-11-23 | Outpatient (CLI) | payer MEDICARE, MEDICAID ==
[~2024-11-23] MED LIST changes: +LIDOCAINE 1% MDV 20ML VIAL As Ordered ONE
[2024-11-23 13:20] LABS: BASO % 0.7 % (0.0-1.0); EOS % 0.7 % (0.0-3.0); LYMPH # 0.3 10^3/uL (1.5-5.0); LYMPH % 11.4 % (24.0-44.0); MEAN CORPUSCULAR HEMOGLOBIN 31.3 pg (27.0-33.0); MEAN CORPUSCULAR VOLUME 94.8 fl (80.0-96.0); MONO # 0.3 10^3/uL (0.0-0.8); MONO % 9.6 % (2.0-8.0); NEUTROPHILS # 2.1 10^3/uL (1.5-8.5); NEUTROPHILS % 76.9 % (36.0-66.0); PLATELET COUNT, AUTOMATED 114 10^3/uL (150-450); RED BLOOD COUNT 1.92 10^6/uL (4.30-6.10); WHITE BLOOD COUNT 2.7 10^3/uL (4.0-10.0)
[2024-11-23 13:21] LABS: HEMATOCRIT 18.2 % (42.0-52.0)
[2024-11-23 15:52] VITALS: BP 160/77; TEMP 97.8; O2SAT 99
[2024-11-23 16:26] VITALS: BP 139/73; TEMP 97.4; O2SAT 100
[2024-11-23 16:52] VITALS: BP 142/75; TEMP 97.5; O2SAT 100
[2024-11-23 17:48] VITALS: BP 164/68; TEMP 98.1; O2SAT 100
== END ==
LOC: M IRPRO 12:12
PROVIDERS: ATTEND Specialist
DX: C61 Malignant neoplasm of prostate (principal)
CPT/HCPCS: 36415; 38222; 77012; 85025; 86850; 86900; 86901; 86920; 88300; 88305; 88311; 88313; P9016

== ENCOUNTER → 2024-12-08 | Outpatient (CLI) | payer MEDICARE, MEDICAID ==
[~2024-12-08] VITALS: Ht 170.2 cm; Wt 81.0 kg
[~2024-12-08] MED LIST changes: -LIDOCAINE 1% MDV 20ML VIAL As Ordered ONE; +MELO15TA28 PO; +MORP-69 PO
[2024-12-08 15:41] VITALS: BP 155/78; O2SAT 97
== END ==
LOC: M PAL 15:25
PROVIDERS: ATTEND Family Medicine
DX: Z51.5 Encounter for palliative care (principal); C61 Malignant neoplasm of prostate; C79.51 Secondary malignant neoplasm of bone; R52 Pain, unspecified; Z66 Do not resuscitate; Z79.891 Long term (current) use of opiate analgesic; Z79.899 Other long term (current) drug therapy

== ENCOUNTER 2024-12-15 10:04 | Observation (INO) | payer MEDICARE, MEDICAID ==
[~2024-12-15] VITALS: Ht 177.8 cm; Wt 76.8 kg
[2024-12-15 11:07] LABS: PROTEIN, URINE MANUAL REFLEX OBSCURED mg/dL (NEGATIVE); SP GRAVITY,URINE MANUAL REFLEX 1.019 (1.002-1.035)
[2024-12-15 11:08] LABS: KETONE, URINE MANUAL REFLEX OBSCURED mg/dL (NEGATIVE); NITRITE, URINE MANUAL RFX OBSCURED (NEGATIVE); UROBILINOGEN, UA MANUAL REFLEX OBSCURED mg/dl (NORMAL)
[2024-12-15 11:14] LABS: BASO % 0.5 % (0.0-1.0); HEMATOCRIT 24.7 % (42.0-52.0); HEMOGLOBIN 8.3 g/dl (13.5-17.5); LYMPH # 0.4 10^3/uL (1.5-5.0); MEAN CORPUSCULAR HEMOGLOBIN 30.4 pg (27.0-33.0); MEAN CORPUSCULAR HGB CONC 33.6 g/dl (32.0-36.5); MEAN CORPUSCULAR VOLUME 90.5 fl (80.0-96.0); MONO # 0.4 10^3/uL (0.0-0.8); MONO % 9.2 % (2.0-8.0); NEUTROPHILS % 77.8 % (36.0-66.0); RED BLOOD COUNT 2.73 10^6/uL (4.30-6.10); WHITE BLOOD COUNT 3.9 10^3/uL (4.0-10.0)
[2024-12-15 11:21] LABS: MICROSCOPIC EXAM RFX PERFORMED; RBC, URINE MAN REFLEX TNTC /hpf (0-3); TRANSITIONAL EPI, URINE RFX SMALL AMOUNT /hpf
[2024-12-15 11:21] LABS: PLATELET COUNT, AUTOMATED 94 10^3/uL (150-450)
[2024-12-15 11:25] LABS: PROTHROMBIN TIME 13.5 SECONDS (12.5-14.5)
[2024-12-15 11:38] LABS: BLOOD UREA NITROGEN 20 MG/DL (9-23); CALCIUM LEVEL 8.1 MG/DL (8.3-10.6); CARBON DIOXIDE LEVEL 23 MMOL/L (20-31); CHLORIDE LEVEL 101 MMOL/L (98-107); CREATININE FOR GFR 0.94 MG/DL (0.70-1.30); GLOMERULAR FILTRATION RATE > 60.0 (>49); GLUCOSE, FASTING 98 MG/DL (74-106); POTASSIUM SERUM 4.6 MMOL/L (3.5-5.1); SODIUM LEVEL 137 MMOL/L (136-145)
[2024-12-15] MEDS ORDERED: VITA100065 PO (12:46)
[2024-12-15] MEDS ORDERED: THERTAB52 PO (12:46)
[2024-12-15] MEDS ORDERED: VITA500C24 PO (12:46)
[2024-12-15] MEDS ORDERED: LISI10TA22 PO (12:46)
[2024-12-15] MEDS ORDERED: MELO15TA28 PO (12:46)
[2024-12-15] MEDS ORDERED: IBUP80TA PO (12:46)
[2024-12-15] MEDS ORDERED: DOCU8.6T PO (12:50)
[2024-12-15] MEDS ORDERED: MORP-69 PO (12:54)
[2024-12-15] MEDS ORDERED: PRED5TA PO (12:54)
[2024-12-15] MEDS ORDERED: HOME MED LIST COMPLETE! XX SCH (13:00)
[2024-12-15] MEDS: LIDOCAINE 2% JELLY 6ML SYRINGE TOP ONE (14:05)
[2024-12-15] MEDS: LIDOCAINE 2% 5ML JELLY UROJET TOP ONE (14:15)
[2024-12-15] MEDS: oxyCODONE 5MG TAB PO ONE (15:02)
[2024-12-15] MEDS ORDERED: SENOKOT S TAB PO PRN (16:15)
[2024-12-15] MEDS: cefTRIAXone SOD 1 GM in DEXTROSE 5% (D5W) ADV/MINI-BAG 50 ML IV ONE (16:17)
[2024-12-15] MEDS ORDERED: ACETAMINOPHEN 325 MG TAB PO PRN (16:55)
[2024-12-15] MEDS: MORPHINE 4 MG/ML 1ML VIAL IV PRN (19:45)
[2024-12-15 20:41] VITALS: BP 164/78
[2024-12-15] MEDS: MORPHINE SULFATE TAB EXT REL 15 MG PO SCH (20:41)
[2024-12-15] MEDS: FERROUS SULFATE 325MG TAB PO SCH (20:41)
[2024-12-15 22:30] VITALS: O2SAT 97
[2024-12-15 23:04] VITALS: BP 135/83; TEMP 98.3; O2SAT 95
[2024-12-16] VITALS (8 sets, daily range): BP systolic 125–169; BP diastolic 65–92; TEMP 97.3–97.9; O2SAT 95–99
[2024-12-16] MEDS ORDERED: MIRALAX *UNIT DOSE* 17GM PACKET PO PRN (00:55)
[2024-12-16 07:33] LABS: ALKALINE PHOSPHATASE 82 U/L (40-129); ALT/SGPT 10 U/L (7.0-40); AST/SGOT 25 U/L (<34); BILIRUBIN,TOTAL 0.5 MG/DL (0.3-1.2); BLOOD UREA NITROGEN 15 MG/DL (9-23); CARBON DIOXIDE LEVEL 25 MMOL/L (20-31); CHLORIDE LEVEL 103 MMOL/L (98-107); CREATININE FOR GFR 0.79 MG/DL (0.70-1.30); GLOMERULAR FILTRATION RATE > 60.0 (>49); GLUCOSE, FASTING 98 MG/DL (74-106); POTASSIUM SERUM 3.7 MMOL/L (3.5-5.1); SODIUM LEVEL 139 MMOL/L (136-145); TOTAL PROTEIN 5.8 G/DL (5.7-8.2)
[2024-12-16] MEDS: ASCORBIC ACID 500 MG TAB PO SCH (08:36)
[2024-12-16] MEDS: SENNA 8.6 MG TAB (SENOKOT) PO SCH (08:36)
[2024-12-16] MEDS: predniSONE 5 MG TAB PO SCH (08:36)
[2024-12-16] MEDS: cefTRIAXone SOD 1 GM in DEXTROSE 5% (D5W) ADV/MINI-BAG 50 ML IV SCH (08:37)
[2024-12-16] MEDS: BACTRIM 160MG/800MG DS TAB PO SCH (20:29)
[2024-12-16 20:59] LABS: BASO % 0.2 % (0.0-1.0); EOS % 0.2 % (0.0-3.0); HEMATOCRIT 21.6 % (42.0-52.0); HEMOGLOBIN 7.4 g/dl (13.5-17.5); LYMPH # 0.5 10^3/uL (1.5-5.0); LYMPH % 11.8 % (24.0-44.0); MEAN CORPUSCULAR HEMOGLOBIN 31.1 pg (27.0-33.0); MEAN CORPUSCULAR HGB CONC 34.3 g/dl (32.0-36.5); MEAN CORPUSCULAR VOLUME 90.8 fl (80.0-96.0); MONO # 0.4 10^3/uL (0.0-0.8); MONO % 9.5 % (2.0-8.0); NEUTROPHILS # 3.4 10^3/uL (1.5-8.5); NEUTROPHILS % 77.8 % (36.0-66.0); RED BLOOD COUNT 2.38 10^6/uL (4.30-6.10); WHITE BLOOD COUNT 4.3 10^3/uL (4.0-10.0)
[2024-12-16 21:02] LABS: PLATELET COUNT, AUTOMATED 85 10^3/uL (150-450)
[2024-12-16 21:22] LABS: ALBUMIN 2.9 G/DL (3.2-5.2); ALKALINE PHOSPHATASE 80 U/L (40-129); ALT/SGPT < 9 U/L (7.0-40); AST/SGOT 25 U/L (<34); BILIRUBIN,TOTAL 0.4 MG/DL (0.3-1.2); BLOOD UREA NITROGEN 22 MG/DL (9-23); CALCIUM LEVEL 8.3 MG/DL (8.3-10.6); CARBON DIOXIDE LEVEL 22 MMOL/L (20-31); CHLORIDE LEVEL 102 MMOL/L (98-107); CREATININE FOR GFR 0.84 MG/DL (0.70-1.30); GLOMERULAR FILTRATION RATE > 60.0 (>49); GLUCOSE, FASTING 122 MG/DL (74-106); SODIUM LEVEL 133 MMOL/L (136-145); TOTAL PROTEIN 5.7 G/DL (5.7-8.2)
[2024-12-17 03:20] VITALS: BP 117/58; TEMP 97.9; O2SAT 96
[2024-12-17 06:07] LABS: BASO % 0.3 % (0.0-1.0); EOS % 0.6 % (0.0-3.0); HEMATOCRIT 22.4 % (42.0-52.0); HEMOGLOBIN 7.6 g/dl (13.5-17.5); LYMPH # 0.5 10^3/uL (1.5-5.0); LYMPH % 14.4 % (24.0-44.0); MEAN CORPUSCULAR HEMOGLOBIN 30.8 pg (27.0-33.0); MEAN CORPUSCULAR HGB CONC 33.9 g/dl (32.0-36.5); MEAN CORPUSCULAR VOLUME 90.7 fl (80.0-96.0); MONO # 0.4 10^3/uL (0.0-0.8); MONO % 11.6 % (2.0-8.0); NEUTROPHILS # 2.6 10^3/uL (1.5-8.5); NEUTROPHILS % 72.5 % (36.0-66.0); RED BLOOD COUNT 2.47 10^6/uL (4.30-6.10); WHITE BLOOD COUNT 3.6 10^3/uL (4.0-10.0)
[2024-12-17 06:08] LABS: PLATELET COUNT, AUTOMATED 79 10^3/uL (150-450)
[2024-12-17 06:24] LABS: BLOOD UREA NITROGEN 17 MG/DL (9-23); CALCIUM LEVEL 8.4 MG/DL (8.3-10.6); CARBON DIOXIDE LEVEL 24 MMOL/L (20-31); CHLORIDE LEVEL 104 MMOL/L (98-107); CREATININE FOR GFR 0.88 MG/DL (0.70-1.30); GLOMERULAR FILTRATION RATE > 60.0 (>49); GLUCOSE, FASTING 96 MG/DL (74-106); POTASSIUM SERUM 3.9 MMOL/L (3.5-5.1); SODIUM LEVEL 137 MMOL/L (136-145)
[2024-12-17] MEDS: oxyCODONE 5MG TAB PO PRN (06:56)
[2024-12-17 08:00] VITALS: BP 148/85; TEMP 97.7; O2SAT 97
[2024-12-17] MEDS ORDERED: BACTDSTA PO (10:46)
== END 2024-12-17 11:30 | disposition home or self-care (01) ==
LOC: M ED 10:04 → EDBD 10:04 → M ED INP 10:05 → M MSPAV 22:16
PROVIDERS: ADMIT Student in an Organized Health Care Education/Training Program; ATTEND Student in an Organized Health Care Education/Training Program
DX: R31.0 Gross hematuria (principal); Z85.46 Personal history of malignant neoplasm of prostate; Z90.79 Acquired absence of other genital organ(s); C79.51 Secondary malignant neoplasm of bone; N13.9 Obstructive and reflux uropathy, unspecified; R33.9 Retention of urine, unspecified; M62.838 Other muscle spasm; N30.40 Irradiation cystitis without hematuria; Z92.3 Personal history of irradiation; G89.3 Neoplasm related pain (acute) (chronic); I10 Essential (primary) hypertension; Z79.899 Other long term (current) drug therapy; Z79.891 Long term (current) use of opiate analgesic; Z66 Do not resuscitate
CPT/HCPCS: 36415; 51700; 80048; 80053; 81000; 81015; 85025; 85049; 85055; 85610; 86850; 86900; 86901; 87086; 96365; 96366; 96375; 99285; G0378; J0696; J7512

== ENCOUNTER 2024-12-24 14:09 | Observation (INO) | payer MEDICARE, MEDICAID ==
[~2024-12-24] VITALS: Ht 177.8 cm; Wt 78.4 kg
[2024-12-24] VITALS (7 sets, daily range): BP systolic 96–150; BP diastolic 55–72; TEMP 97.1–98.8; O2SAT 97–99
[~2024-12-24 14:09] MED LIST changes: -ABIR500T PO; -SENN1TAB96 PO
[2024-12-24] MEDS ORDERED: ACETAMINOPHEN 325 MG TAB PO PRN (16:05)
[2024-12-24] MEDS ORDERED: BACTDSTA PO (16:46)
[2024-12-24] MEDS ORDERED: HOME MED LIST COMPLETE! XX SCH (16:50)
[2024-12-24] MEDS ORDERED: SENOKOT S TAB PO PRN (18:50)
[2024-12-24] MEDS: FERROUS SULFATE 325MG TAB PO SCH (21:00)
[2024-12-24] MEDS: ASCORBIC ACID 500 MG TAB PO SCH (21:00)
[2024-12-24] MEDS: oxyCODONE 5MG TAB PO PRN (21:47)
[2024-12-24 22:31] LABS: HEMATOCRIT 23.4 % (42.0-52.0); MEAN CORPUSCULAR HEMOGLOBIN 31.1 pg (27.0-33.0); MEAN CORPUSCULAR HGB CONC 34.2 g/dl (32.0-36.5); MEAN CORPUSCULAR VOLUME 91.1 fl (80.0-96.0); RED BLOOD COUNT 2.57 10^6/uL (4.30-6.10); WHITE BLOOD COUNT 3.7 10^3/uL (4.0-10.0)
[2024-12-24 22:42] LABS: PLATELET COUNT, AUTOMATED 81 10^3/uL (150-450)
[2024-12-25] VITALS: BP 137/76; TEMP 97.5; O2SAT 97
[2024-12-25 04:00] VITALS: BP 137/75; TEMP 97.5; O2SAT 99
[2024-12-25 06:24] LABS: HEMATOCRIT 23.8 % (42.0-52.0); HEMOGLOBIN 7.9 g/dl (13.5-17.5); MEAN CORPUSCULAR HEMOGLOBIN 30.3 pg (27.0-33.0); MEAN CORPUSCULAR HGB CONC 33.2 g/dl (32.0-36.5); MEAN CORPUSCULAR VOLUME 91.2 fl (80.0-96.0); RED BLOOD COUNT 2.61 10^6/uL (4.30-6.10); WHITE BLOOD COUNT 3.1 10^3/uL (4.0-10.0)
[2024-12-25 06:25] LABS: PLATELET COUNT, AUTOMATED 83 10^3/uL (150-450)
[2024-12-25 06:51] LABS: BLOOD UREA NITROGEN 20 MG/DL (9-23); CALCIUM LEVEL 8.3 MG/DL (8.3-10.6); CARBON DIOXIDE LEVEL 24 MMOL/L (20-31); CHLORIDE LEVEL 102 MMOL/L (98-107); CREATININE FOR GFR 1.12 MG/DL (0.70-1.30); GLOMERULAR FILTRATION RATE > 60.0 (>49); GLUCOSE, FASTING 85 MG/DL (74-106); POTASSIUM SERUM 4.4 MMOL/L (3.5-5.1); SODIUM LEVEL 135 MMOL/L (136-145)
[2024-12-25 08:00] VITALS: BP 149/77; TEMP 97.3
[2024-12-25] MEDS: predniSONE 10MG TAB PO SCH (08:41)
[2024-12-25] MEDS: BACTRIM 160MG/800MG DS TAB PO SCH (08:41)
[2024-12-25 12:00] VITALS: BP 131/83; TEMP 97
[2024-12-27] MEDS ORDERED: ABIR500T PO (10:16)
[2024-12-27] MEDS ORDERED: MELO15TA28 PO (10:16)
[2024-12-27] MEDS ORDERED: SENN1TAB96 PO (10:24)
== END 2024-12-25 12:15 | disposition home or self-care (01) ==
LOC: M ED 14:09 → M ED INP 14:10 → M MS5PR 21:25
PROVIDERS: ADMIT Student in an Organized Health Care Education/Training Program; ATTEND Student in an Organized Health Care Education/Training Program
DX: R31.0 Gross hematuria (principal); D50.0 Iron deficiency anemia secondary to blood loss (chronic); C79.51 Secondary malignant neoplasm of bone; C79.89 Secondary malignant neoplasm of other specified sites; C61 Malignant neoplasm of prostate; I10 Essential (primary) hypertension; R33.8 Other retention of urine; G89.3 Neoplasm related pain (acute) (chronic); R63.4 Abnormal weight loss; Z79.899 Other long term (current) drug therapy; Z79.52 Long term (current) use of systemic steroids; Z79.2 Long term (current) use of antibiotics; N30.41 Irradiation cystitis with hematuria; D69.6 Thrombocytopenia, unspecified; Z92.21 Personal history of antineoplastic chemotherapy; Z92.29 Personal history of other drug therapy; Z92.3 Personal history of irradiation; Z79.1 Long term (current) use of non-steroidal anti-inflammatories (NSAID); Z79.818 Long term (current) use of other agents affecting estrogen receptors and estrogen levels; Z87.891 Personal history of nicotine dependence; Z96.0 Presence of urogenital implants; Z01.818 Encounter for other preprocedural examination; Z66 Do not resuscitate
CPT/HCPCS: 36415; 36430; 71046; 80048; 83735; 85027; 85049; 85055; 86850; 86900; 86901; 86920; 93005; 99285; G0378; G0463; J7512; P9016

== ENCOUNTER → 2024-12-24 | Outpatient (CLI) | payer MEDICARE, MEDICAID ==
[~2024-12-24] MED LIST changes: +ABIR500T PO; +BACTDSTA PO; +DOCU8.6T PO; +IBUP80TA PO; +SENN1TAB96 PO; +THERTAB52 PO; +VITA100065 PO
== END ==
LOC: M ONCR 08:50
PROVIDERS: ATTEND General Practice
DX: N30.41 Irradiation cystitis with hematuria (principal); D69.6 Thrombocytopenia, unspecified; C79.51 Secondary malignant neoplasm of bone; C61 Malignant neoplasm of prostate; Z92.21 Personal history of antineoplastic chemotherapy; Z92.29 Personal history of other drug therapy; Z92.3 Personal history of irradiation; Z79.1 Long term (current) use of non-steroidal anti-inflammatories (NSAID); Z79.52 Long term (current) use of systemic steroids; Z79.818 Long term (current) use of other agents affecting estrogen receptors and estrogen levels; Z79.899 Other long term (current) drug therapy; Z87.891 Personal history of nicotine dependence; Z96.0 Presence of urogenital implants

== ENCOUNTER → 2024-12-24 | Outpatient (CLI) | payer MEDICARE, MEDICAID ==
[2024-12-24 12:12] LABS: MEAN CORPUSCULAR HEMOGLOBIN 30.6 pg (27.0-33.0); MEAN CORPUSCULAR HGB CONC 32.2 g/dl (32.0-36.5); MEAN CORPUSCULAR VOLUME 94.8 fl (80.0-96.0); PLATELET COUNT, AUTOMATED 108 10^3/uL (150-450); RED BLOOD COUNT 1.93 10^6/uL (4.30-6.10); WHITE BLOOD COUNT 3.9 10^3/uL (4.0-10.0)
[2024-12-24 12:39] LABS: BLOOD UREA NITROGEN 18 MG/DL (9-23); CALCIUM LEVEL 8.7 MG/DL (8.3-10.6); CARBON DIOXIDE LEVEL 25 MMOL/L (20-31); CHLORIDE LEVEL 98 MMOL/L (98-107); GLOMERULAR FILTRATION RATE > 60.0 (>49); GLUCOSE, FASTING 93 MG/DL (74-106); POTASSIUM SERUM 4.6 MMOL/L (3.5-5.1); SODIUM LEVEL 132 MMOL/L (136-145)
[2024-12-24 13:06] LABS: HEMATOCRIT 18.3 % (42.0-52.0); HEMOGLOBIN 5.9 g/dl (13.5-17.5)
== END ==
LOC: M RAD 09:50
PROVIDERS: ATTEND Urology
DX: Z01.818 Encounter for other preprocedural examination (principal); R31.0 Gross hematuria

== ENCOUNTER 2024-12-31 06:20 | Day surgery (SDC) | payer MEDICARE, MEDICAID ==
[~2024-12-31] VITALS: Ht 177.8 cm; Wt 76.2 kg
[~2024-12-31 06:20] MED LIST changes: -ABIR250T; +ABIR250T2; +ABIR500T PO; +SENN1TAB96 PO
[2024-12-31] MEDS ORDERED: LR 1,000 ML IV SCH (06:25)
[2024-12-31] MEDS ORDERED: propofoL 200 MG/20 ML VIAL As Ordered ONE (06:39)
[2024-12-31] MEDS ORDERED: GLYCOPYRROLATE INJ 0.2 MG/ML 2 ML VIAL As Ordered ONE (06:39)
[2024-12-31] MEDS ORDERED: LIDOCAINE 2% 100MG/5ML SDV (FOR ANES.) As Ordered ONE (06:39)
[2024-12-31] MEDS ORDERED: ONDANSETRON 4MG 2ML VIAL As Ordered ONE (06:40)
[2024-12-31] MEDS ORDERED: MIDAZOLAM INJ 2MG/2ML VIAL As Ordered ONE (06:41)
[2024-12-31] MEDS ORDERED: fentaNYL 100 MCG/2 ML INJECTION As Ordered ONE (06:41)
[2024-12-31 07:17] LABS: HEMATOCRIT 23.1 % (42.0-52.0); HEMOGLOBIN 7.9 g/dl (13.5-17.5); MEAN CORPUSCULAR HEMOGLOBIN 30.9 pg (27.0-33.0); MEAN CORPUSCULAR HGB CONC 34.2 g/dl (32.0-36.5); MEAN CORPUSCULAR VOLUME 90.2 fl (80.0-96.0); RED BLOOD COUNT 2.56 10^6/uL (4.30-6.10); WHITE BLOOD COUNT 4.3 10^3/uL (4.0-10.0)
[2024-12-31 07:22] LABS: PLATELET COUNT, AUTOMATED 81 10^3/uL (150-450)
[2024-12-31] MEDS: ceFAZolin SOD 2 GM in IV 1 EA IV ONE (07:54)
[2024-12-31] MEDS: METHOCARBAMOL 1,000 MG/10 ML VIAL As Ordered ONE (08:00)
[2024-12-31] MEDS ORDERED: ACETAMINOPHEN 1000MG/100ML IV BAG As Ordered ONE (08:00)
[2024-12-31] MEDS: ISOVUE-300 61% 100ML VIAL As Ordered ONE (08:44)
[2024-12-31] MEDS ORDERED: PHENYLephrine 500MCG 5ML (100MCG/ML) SYRINGE As Ordered ONE (09:21)
[2024-12-31] MEDS ORDERED: CEPH500C PO (09:52)
[2024-12-31 10:34] LABS: HEMATOCRIT 22.5 % (42.0-52.0); HEMOGLOBIN 7.5 g/dl (13.5-17.5); MEAN CORPUSCULAR HGB CONC 33.3 g/dl (32.0-36.5); MEAN CORPUSCULAR VOLUME 86.9 fl (80.0-96.0); RED BLOOD COUNT 2.59 10^6/uL (4.30-6.10); WHITE BLOOD COUNT 4.7 10^3/uL (4.0-10.0)
[2024-12-31] MEDS: ONDANSETRON 4MG 2ML VIAL IV PRN (10:37)
[2024-12-31] MEDS: oxyCODONE 5MG TAB PO PRN (10:37)
[2024-12-31 10:49] LABS: PLATELET COUNT, AUTOMATED 72 10^3/uL (150-450)
[2024-12-31 10:52] LABS: PARTIAL THROMBOPLASTIN TIME 29.2 SECONDS (24.8-34.2); PROTHROMBIN TIME 13.5 SECONDS (12.5-14.5)
[2024-12-31] MEDS: fentaNYL 100 MCG/2 ML INJECTION IV PRN (10:56)
[2024-12-31 12:29] LABS: HEMATOCRIT 23.9 % (42.0-52.0); HEMOGLOBIN 8.1 g/dl (13.5-17.5); MEAN CORPUSCULAR HEMOGLOBIN 30.1 pg (27.0-33.0); MEAN CORPUSCULAR HGB CONC 33.9 g/dl (32.0-36.5); MEAN CORPUSCULAR VOLUME 88.8 fl (80.0-96.0); RED BLOOD COUNT 2.69 10^6/uL (4.30-6.10); WHITE BLOOD COUNT 4.9 10^3/uL (4.0-10.0)
[2024-12-31] MEDS ORDERED: PERCOCET 5MG/325MG TAB PO PRN (12:30)
[2024-12-31 12:31] LABS: PLATELET COUNT, AUTOMATED 50 10^3/uL (150-450)
[2024-12-31 13:48] VITALS: BP 102/62; TEMP 97.9; O2SAT 95
== END 2024-12-31 13:53 | disposition home or self-care (01) ==
LOC: M SDC 06:20
PROVIDERS: ATTEND Urology
DX: C79.19 Secondary malignant neoplasm of other urinary organs (principal); Z79.899 Other long term (current) drug therapy; Z85.46 Personal history of malignant neoplasm of prostate; Z90.79 Acquired absence of other genital organ(s)

== ENCOUNTER 2025-01-03 10:27 | Inpatient (IN) | payer MEDICARE, MEDICAID ==
[~2025-01-03] VITALS: Ht 162.6 cm; Wt 79.7 kg
[~2025-01-03 10:27] MED LIST changes: +CEPH500C PO
[2025-01-03] MEDS: MORPHINE 2 MG/ML 1ML VIAL IV PRN (10:43)
[2025-01-03 10:58] LABS: BASO % 0.4 % (0.0-1.0); EOS # 0.1 10^3/uL (0.0-0.5); HEMATOCRIT 23.9 % (42.0-52.0); HEMOGLOBIN 7.9 g/dl (13.5-17.5); LYMPH # 0.8 10^3/uL (1.5-5.0); LYMPH % 14.5 % (24.0-44.0); MEAN CORPUSCULAR HEMOGLOBIN 29.8 pg (27.0-33.0); MEAN CORPUSCULAR HGB CONC 33.1 g/dl (32.0-36.5); MEAN CORPUSCULAR VOLUME 90.2 fl (80.0-96.0); MONO # 0.5 10^3/uL (0.0-0.8); MONO % 8.7 % (2.0-8.0); NEUTROPHILS # 3.9 10^3/uL (1.5-8.5); NEUTROPHILS % 74.6 % (36.0-66.0); RED BLOOD COUNT 2.65 10^6/uL (4.30-6.10); WHITE BLOOD COUNT 5.2 10^3/uL (4.0-10.0)
[2025-01-03 10:59] LABS: PLATELET COUNT, AUTOMATED 95 10^3/uL (150-450)
[2025-01-03 11:09] LABS: INR 0.96; PARTIAL THROMBOPLASTIN TIME 29.6 SECONDS (24.8-34.2); PROTHROMBIN TIME 13.1 SECONDS (12.5-14.5)
[2025-01-03 11:24] LABS: CK-MB VALUE MASS < 1.0 NG/ML (<3.6); LIPASE 65 U/L (12-53)
[2025-01-03 11:27] LABS: ALBUMIN 3.1 G/DL (3.2-5.2); ALKALINE PHOSPHATASE 102 U/L (40-129); ALT/SGPT < 9 U/L (7.0-40); AST/SGOT 40 U/L (<34); BILIRUBIN,DIRECT 0.1 MG/DL (<0.4); BILIRUBIN,TOTAL 0.5 MG/DL (0.3-1.2); BLOOD UREA NITROGEN 18 MG/DL (9-23); CALCIUM LEVEL 8.3 MG/DL (8.3-10.6); CARBON DIOXIDE LEVEL 23 MMOL/L (20-31); CHLORIDE LEVEL 103 MMOL/L (98-107); GLOMERULAR FILTRATION RATE > 60.0 (>49); GLUCOSE, FASTING 97 MG/DL (74-106); POTASSIUM SERUM 4.1 MMOL/L (3.5-5.1); SODIUM LEVEL 135 MMOL/L (136-145); TOTAL PROTEIN 6.1 G/DL (5.7-8.2)
[2025-01-03 11:29] LABS: FREE T4 1.03 NG/DL (0.89-1.76); THYROID STIMULATING HORMONE 17.975 uIU/ML (0.55-4.78)
[2025-01-03 11:33] LABS: CPK CREATINE PHOSPHOKINASE 54 U/L (46-171); MB/CK RELATIVE INDEX 1.85 (< OR =4)
[2025-01-03] MEDS ORDERED: ISOVUE-370 76% 100ML VIAL As Ordered ONE (11:36)
[2025-01-03 12:16] LABS: CK-MB VALUE MASS < 1.0 NG/ML (<3.6)
[2025-01-03 12:17] LABS: CPK CREATINE PHOSPHOKINASE 44 U/L (46-171); MB/CK RELATIVE INDEX 2.27 (< OR =4)
[2025-01-03 13:30] VITALS: BP 109/59; TEMP 99; O2SAT 99
[2025-01-03 13:45] VITALS: BP 103/58; TEMP 99; O2SAT 97
[2025-01-03] MEDS ORDERED: MORPHINE 2 MG/ML 1ML VIAL IV PRN (14:05)
[2025-01-03] MEDS ORDERED: ALBUTEROL SULFATE 2.5MG/0.5ML INH NEB SOLN NEB PRN (14:55)
[2025-01-03 15:40] VITALS: BP 116/66; TEMP 99; O2SAT 99
[2025-01-03] MEDS ORDERED: CYCL-707 PO (18:31)
[2025-01-03] MEDS: PERCOCET 5MG/325MG TAB PO PRN (18:52)
[2025-01-03] MEDS ORDERED: HOME MED LIST COMPLETE! XX SCH (18:55)
[2025-01-03] MEDS: SENOKOT S TAB PO SCH (20:36)
[2025-01-03] MEDS: MORPHINE SULFATE TAB IMM. REL. 15 MG PO PRN (20:38)
[2025-01-03 22:11] VITALS: BP 130/69; TEMP 97.7
[2025-01-04] MEDS: MORPHINE 2 MG/ML 1ML VIAL IV PRN (00:44)
[2025-01-04 04:00] VITALS: BP 117/64; TEMP 98.1; O2SAT 98
[2025-01-04 06:13] LABS: BASO % 0.6 % (0.0-1.0); EOS # 0.1 10^3/uL (0.0-0.5); HEMATOCRIT 24.4 % (42.0-52.0); HEMOGLOBIN 8.2 g/dl (13.5-17.5); LYMPH # 0.5 10^3/uL (1.5-5.0); LYMPH % 12.7 % (24.0-44.0); MEAN CORPUSCULAR HEMOGLOBIN 29.7 pg (27.0-33.0); MEAN CORPUSCULAR HGB CONC 33.6 g/dl (32.0-36.5); MEAN CORPUSCULAR VOLUME 88.4 fl (80.0-96.0); MONO # 0.3 10^3/uL (0.0-0.8); MONO % 9.6 % (2.0-8.0); NEUTROPHILS # 2.6 10^3/uL (1.5-8.5); NEUTROPHILS % 74.3 % (36.0-66.0); RED BLOOD COUNT 2.76 10^6/uL (4.30-6.10); WHITE BLOOD COUNT 3.5 10^3/uL (4.0-10.0)
[2025-01-04 06:25] LABS: PLATELET COUNT, AUTOMATED 75 10^3/uL (150-450)
[2025-01-04 06:30] LABS: BLOOD UREA NITROGEN 13 MG/DL (9-23); CALCIUM LEVEL 7.5 MG/DL (8.3-10.6); CARBON DIOXIDE LEVEL 22 MMOL/L (20-31); CHLORIDE LEVEL 105 MMOL/L (98-107); CREATININE FOR GFR 0.75 MG/DL (0.70-1.30); GLOMERULAR FILTRATION RATE > 60.0 (>49); GLUCOSE, FASTING 90 MG/DL (74-106); POTASSIUM SERUM 3.7 MMOL/L (3.5-5.1); SODIUM LEVEL 135 MMOL/L (136-145)
[2025-01-04] MEDS: predniSONE 10MG TAB PO SCH (09:24)
[2025-01-04] MEDS: BACTRIM 160MG/800MG DS TAB PO SCH (09:25)
[2025-01-04] MEDS ORDERED: oxyCODONE 5MG TAB PO PRN (10:00)
[2025-01-04] MEDS: MORPHINE 2 MG/ML 1ML VIAL IV ONE (11:17)
[2025-01-04] MEDS: CYCLOBENZAPRINE 10MG TABLET PO PRN (11:52)
[2025-01-04 12:00] VITALS: BP 139/75; TEMP 97.9; O2SAT 98
[2025-01-04] MEDS: oxyCODONE 5MG TAB PO PRN (13:46)
[2025-01-04] MEDS ORDERED: OXYC-141 PO (16:40)
[2025-01-04] MEDS ORDERED: MELO15TA28 PO (16:42)
[2025-01-04] MEDS ORDERED: oxyCODONE 10 MG CR TAB PO SCH (21:00)
[2025-01-04] MEDS ORDERED: ASCORBIC ACID 500 MG TAB PO SCH (21:00)
[2025-01-04] MEDS ORDERED: FERROUS SULFATE 325MG TAB PO SCH (21:00)
[2025-01-10] MEDS ORDERED: ABIR500T PO (13:15)
== END 2025-01-04 18:05 | disposition home or self-care (01) | DRG 940 ==
LOC: M ED 10:27 → M ED INP 14:52 → M MSPAV 22:05
PROVIDERS: ADMIT Internal Medicine Nephrology; ATTEND Internal Medicine
PROC: 0TB78ZZ Excision of Left Ureter, Via Natural or Artificial Opening Endoscopic (ICD-10-PCS; principal; 2024-12-31)
PROC: 0T778DZ Dilation of Left Ureter with Intraluminal Device, Via Natural or Artificial Opening Endoscopic (ICD-10-PCS; 2024-12-31)
PROC: 0TCB8ZZ Extirpation of Matter from Bladder, Via Natural or Artificial Opening Endoscopic (ICD-10-PCS; 2024-12-31)
PROC: 0TC78ZZ Extirpation of Matter from Left Ureter, Via Natural or Artificial Opening Endoscopic (ICD-10-PCS; 2024-12-31)
DX: G89.3 Neoplasm related pain (acute) (chronic) (principal); C79.51 Secondary malignant neoplasm of bone; N30.41 Irradiation cystitis with hematuria; M84.48XA Pathological fracture, other site, initial encounter for fracture; C78.01 Secondary malignant neoplasm of right lung; C78.02 Secondary malignant neoplasm of left lung; C79.19 Secondary malignant neoplasm of other urinary organs; Z87.891 Personal history of nicotine dependence; I10 Essential (primary) hypertension; D69.6 Thrombocytopenia, unspecified; J06.9 Acute upper respiratory infection, unspecified; R33.9 Retention of urine, unspecified; C61 Malignant neoplasm of prostate; B97.29 Other coronavirus as the cause of diseases classified elsewhere; D64.9 Anemia, unspecified; Z66 Do not resuscitate; Z79.1 Long term (current) use of non-steroidal anti-inflammatories (NSAID); Z79.899 Other long term (current) drug therapy; Z92.21 Personal history of antineoplastic chemotherapy; Z92.3 Personal history of irradiation; R31.0 Gross hematuria; Z85.46 Personal history of malignant neoplasm of prostate; Z90.79 Acquired absence of other genital organ(s)

== ENCOUNTER 2025-01-13 10:12 | Outpatient (RCR) | payer MEDICARE, MEDICAID ==
[~2025-01-13 10:12] MED LIST changes: +CYCL-707 PO; +OXYC-141 PO; +OXYC20TA40 PO
== END 2025-01-14 ==
LOC: M ONCR 10:12
PROVIDERS: ATTEND General Practice
DX: Z51.0 Encounter for antineoplastic radiation therapy (principal); C79.51 Secondary malignant neoplasm of bone

== ENCOUNTER 2025-01-17 10:17 | Outpatient (RCR) | payer MEDICARE, MEDICAID ==
[2018-12-30 08:36] VITALS: BP 135/90; TEMP 98.3; O2SAT 97
[2018-12-30 09:29] LABS: HEMATOCRIT 39.4 % (42.0-52.0); HEMOGLOBIN 13.4 g/dl (13.5-17.5); LYMPH % 32.7 % (24.0-44.0); MEAN CORPUSCULAR HEMOGLOBIN 30.1 pg (27.0-33.0); MEAN CORPUSCULAR VOLUME 88.5 fl (80.0-96.0); NEUTROPHILS # 2.3 10^3/uL (1.8-7.7); NEUTROPHILS % 57.9 % (36.0-66.0); RED BLOOD COUNT 4.45 10^6/uL (4.30-6.10)
[2018-12-30 09:48] LABS: ALBUMIN 4.4 GM/DL (3.5-5.2); ALKALINE PHOSPHATASE 113 U/L (44-147); BLOOD UREA NITROGEN 19 MG/DL (6-20); CALCIUM LEVEL 9.7 MG/DL (8.5-10.2); CARBON DIOXIDE LEVEL 29 MEQ/L (23-31); CHLORIDE LEVEL 105 MMOL/L (98-107); CREATININE FOR GFR 1.06 MG/DL (0.90-1.30); GLOMERULAR FILTRATION RATE > 60.0 (>49); GLUCOSE, FASTING 106 MG/DL (70-105); POTASSIUM SERUM 4.3 MMOL/L (3.5-5.1); SODIUM LEVEL 141 MMOL/L (136-145); TOTAL PROTEIN 6.9 GM/DL (6.4-8.3)
[2019-01-04 11:11] VITALS: BP 140/82; TEMP 98.3; O2SAT 97
[2019-02-03 10:38] LABS: HEMOGLOBIN 13.3 g/dl (13.5-17.5); LYMPH % 29.1 % (24.0-44.0); MEAN CORPUSCULAR HEMOGLOBIN 28.9 pg (27.0-33.0); MEAN CORPUSCULAR HGB CONC 33.3 g/dl (32.0-36.5); MEAN CORPUSCULAR VOLUME 86.8 fl (80.0-96.0); NEUTROPHILS # 3.3 10^3/uL (1.8-7.7); NEUTROPHILS % 61.6 % (36.0-66.0); RED BLOOD COUNT 4.61 10^6/uL (4.30-6.10); WHITE BLOOD COUNT 5.3 10^3/uL (4.0-10.0)
[2019-02-03 11:15] LABS: ALBUMIN 4.6 GM/DL (3.5-5.2); ALKALINE PHOSPHATASE 136 U/L (44-147); BLOOD UREA NITROGEN 17 MG/DL (6-20); CALCIUM LEVEL 9.8 MG/DL (8.5-10.2); CARBON DIOXIDE LEVEL 29 MEQ/L (23-31); CHLORIDE LEVEL 103 MMOL/L (98-107); CREATININE FOR GFR 1.05 MG/DL (0.90-1.30); GLOMERULAR FILTRATION RATE > 60.0 (>49); GLUCOSE, FASTING 99 MG/DL (70-105); POTASSIUM SERUM 4.3 MMOL/L (3.5-5.1); SODIUM LEVEL 140 MMOL/L (136-145)
[2019-02-10 11:16] LABS: HEMATOCRIT 40.4 % (42.0-52.0); HEMOGLOBIN 13.3 g/dl (13.5-17.5); LYMPH % 32.6 % (24.0-44.0); MEAN CORPUSCULAR HEMOGLOBIN 28.8 pg (27.0-33.0); MEAN CORPUSCULAR HGB CONC 32.9 g/dl (32.0-36.5); MEAN CORPUSCULAR VOLUME 87.4 fl (80.0-96.0); NEUTROPHILS # 2.5 10^3/uL (1.8-7.7); NEUTROPHILS % 58.8 % (36.0-66.0); RED BLOOD COUNT 4.62 10^6/uL (4.30-6.10); WHITE BLOOD COUNT 4.3 10^3/uL (4.0-10.0)
[2019-02-10 13:14] LABS: ALBUMIN 4.4 GM/DL (3.5-5.2); ALKALINE PHOSPHATASE 124 U/L (44-147); BLOOD UREA NITROGEN 14 MG/DL (6-20); CALCIUM LEVEL 9.5 MG/DL (8.5-10.2); CARBON DIOXIDE LEVEL 27 MEQ/L (23-31); CHLORIDE LEVEL 103 MMOL/L (98-107); CREATININE FOR GFR 1.11 MG/DL (0.90-1.30); GLOMERULAR FILTRATION RATE > 60.0 (>49); GLUCOSE, FASTING 98 MG/DL (70-105); POTASSIUM SERUM 4.4 MMOL/L (3.5-5.1); SODIUM LEVEL 138 MMOL/L (135-145); TOTAL PROTEIN 6.7 GM/DL (6.4-8.3)
[2019-02-17 10:22] LABS: HEMATOCRIT 39.6 % (42.0-52.0); HEMOGLOBIN 13.2 g/dl (13.5-17.5); LYMPH % 35.6 % (24.0-44.0); MEAN CORPUSCULAR HEMOGLOBIN 29.3 pg (27.0-33.0); MEAN CORPUSCULAR HGB CONC 33.3 g/dl (32.0-36.5); MEAN CORPUSCULAR VOLUME 88.1 fl (80.0-96.0); NEUTROPHILS # 2.6 10^3/uL (1.8-7.7); NEUTROPHILS % 55.6 % (36.0-66.0); RED BLOOD COUNT 4.5 10^6/uL (4.30-6.10); WHITE BLOOD COUNT 4.7 10^3/uL (4.0-10.0)
[2019-02-17 10:51] LABS: ALBUMIN 4.2 GM/DL (3.5-5.2); ALKALINE PHOSPHATASE 112 U/L (44-147); BLOOD UREA NITROGEN 16 MG/DL (6-20); CALCIUM LEVEL 9.2 MG/DL (8.5-10.2); CARBON DIOXIDE LEVEL 29 MEQ/L (23-31); CHLORIDE LEVEL 100 MMOL/L (98-107); CREATININE FOR GFR 0.94 MG/DL (0.90-1.30); GLOMERULAR FILTRATION RATE > 60.0 (>49); GLUCOSE, FASTING 97 MG/DL (70-105); POTASSIUM SERUM 4.2 MMOL/L (3.5-5.1); SODIUM LEVEL 137 MMOL/L (135-145); TOTAL PROTEIN 6.7 GM/DL (6.4-8.3)
[2019-02-24 10:28] LABS: HEMATOCRIT 39.7 % (42.0-52.0); HEMOGLOBIN 13.4 g/dl (13.5-17.5); LYMPH % 34.8 % (24.0-44.0); MEAN CORPUSCULAR HEMOGLOBIN 29.5 pg (27.0-33.0); MEAN CORPUSCULAR HGB CONC 33.8 g/dl (32.0-36.5); MEAN CORPUSCULAR VOLUME 87.3 fl (80.0-96.0); NEUTROPHILS # 2.6 10^3/uL (1.8-7.7); NEUTROPHILS % 55.3 % (36.0-66.0); RED BLOOD COUNT 4.55 10^6/uL (4.30-6.10); WHITE BLOOD COUNT 4.7 10^3/uL (4.0-10.0)
[2019-02-24 10:57] LABS: ALBUMIN 4.3 GM/DL (3.5-5.2); ALKALINE PHOSPHATASE 119 U/L (44-147); BLOOD UREA NITROGEN 14 MG/DL (6-20); CALCIUM LEVEL 9.8 MG/DL (8.5-10.2); CARBON DIOXIDE LEVEL 30 MEQ/L (23-31); CHLORIDE LEVEL 102 MMOL/L (98-107); CREATININE FOR GFR 0.98 MG/DL (0.90-1.30); GLOMERULAR FILTRATION RATE > 60.0 (>49); GLUCOSE, FASTING 99 MG/DL (70-105); POTASSIUM SERUM 4.2 MMOL/L (3.5-5.1); SODIUM LEVEL 139 MMOL/L (135-145); TOTAL PROTEIN 6.9 GM/DL (6.4-8.3)
[2019-02-24 11:15] LABS: PROSTATIC SPECIFIC AG MONITOR 2.79 NG/ML (< 4.00)
[2019-02-24 12:49] LABS: TESTOSTERONE 17 NG/DL (241-827)
[2019-03-01 15:57] VITALS: BP 119/79; TEMP 95.9; O2SAT 97
[2019-03-17 11:09] LABS: HEMATOCRIT 38.1 % (42.0-52.0); HEMOGLOBIN 12.8 g/dl (13.5-17.5); LYMPH % 32.7 % (24.0-44.0); MEAN CORPUSCULAR HEMOGLOBIN 29.4 pg (27.0-33.0); MEAN CORPUSCULAR HGB CONC 33.6 g/dl (32.0-36.5); MEAN CORPUSCULAR VOLUME 87.5 fl (80.0-96.0); NEUTROPHILS # 2.8 10^3/uL (1.8-7.7); NEUTROPHILS % 58.2 % (36.0-66.0); RED BLOOD COUNT 4.35 10^6/uL (4.30-6.10); WHITE BLOOD COUNT 4.8 10^3/uL (4.0-10.0)
[2019-03-24 10:35] LABS: HEMATOCRIT 40.5 % (42.0-52.0); HEMOGLOBIN 13.5 g/dl (13.5-17.5); LYMPH % 27.8 % (24.0-44.0); MEAN CORPUSCULAR HEMOGLOBIN 29.4 pg (27.0-33.0); MEAN CORPUSCULAR HGB CONC 33.3 g/dl (32.0-36.5); MEAN CORPUSCULAR VOLUME 88.3 fl (80.0-96.0); NEUTROPHILS # 3.3 10^3/uL (1.8-7.7); NEUTROPHILS % 65.4 % (36.0-66.0); RED BLOOD COUNT 4.59 10^6/uL (4.30-6.10); WHITE BLOOD COUNT 5.1 10^3/uL (4.0-10.0)
[2019-03-24 10:46] LABS: BLOOD UREA NITROGEN 18 MG/DL (6-20); CALCIUM LEVEL 9.5 MG/DL (8.5-10.2); CARBON DIOXIDE LEVEL 28 MEQ/L (23-31); CHLORIDE LEVEL 103 MMOL/L (98-107); CREATININE FOR GFR 1.01 MG/DL (0.90-1.30); GLOMERULAR FILTRATION RATE > 60.0 (>49); GLUCOSE, FASTING 107 MG/DL (70-105); POTASSIUM SERUM 3.9 MMOL/L (3.5-5.1); SODIUM LEVEL 138 MMOL/L (135-145)
[2019-03-24] MEDS: DENOSUMAB 120 MG/1.7 ML VIAL SC ONE (10:55)
[2019-04-06 10:49] LABS: HEMATOCRIT 37.5 % (42.0-52.0); HEMOGLOBIN 12.7 g/dl (13.5-17.5); LYMPH % 25.7 % (24.0-44.0); MEAN CORPUSCULAR HGB CONC 33.9 g/dl (32.0-36.5); MEAN CORPUSCULAR VOLUME 88.5 fl (80.0-96.0); NEUTROPHILS # 3.5 10^3/uL (1.8-7.7); NEUTROPHILS % 66.8 % (36.0-66.0); RED BLOOD COUNT 4.24 10^6/uL (4.30-6.10); WHITE BLOOD COUNT 5.3 10^3/uL (4.0-10.0)
[2019-04-06 11:23] LABS: PROSTATIC SPECIFIC AG MONITOR 3.37 NG/ML (< 4.00)
[2019-04-06 12:16] LABS: ALBUMIN 4.1 GM/DL (3.5-5.2); ALKALINE PHOSPHATASE 107 U/L (44-147); BLOOD UREA NITROGEN 17 MG/DL (6-20); CALCIUM LEVEL 9.3 MG/DL (8.5-10.2); CARBON DIOXIDE LEVEL 24 MEQ/L (23-31); CHLORIDE LEVEL 103 MMOL/L (98-107); GLOMERULAR FILTRATION RATE > 60.0 (>49); GLUCOSE, FASTING 100 MG/DL (70-105); POTASSIUM SERUM 4.2 MMOL/L (3.5-5.1); SODIUM LEVEL 137 MMOL/L (135-145); TOTAL PROTEIN 6.3 GM/DL (6.4-8.3)
[2019-04-07 10:45] VITALS: BP 129/78; TEMP 98; O2SAT 95
[2019-05-04 10:25] LABS: HEMATOCRIT 41.4 % (42.0-52.0); HEMOGLOBIN 13.9 g/dl (13.5-17.5); LYMPH % 35.4 % (24.0-44.0); MEAN CORPUSCULAR HEMOGLOBIN 29.8 pg (27.0-33.0); MEAN CORPUSCULAR HGB CONC 33.6 g/dl (32.0-36.5); MEAN CORPUSCULAR VOLUME 88.6 fl (80.0-96.0); NEUTROPHILS # 2.5 10^3/uL (1.8-7.7); NEUTROPHILS % 55.4 % (36.0-66.0); RED BLOOD COUNT 4.67 10^6/uL (4.30-6.10); WHITE BLOOD COUNT 4.5 10^3/uL (4.0-10.0)
[2019-05-04 11:00] LABS: PROSTATIC SPECIFIC AG MONITOR 2.47 NG/ML (< 4.00)
[2019-05-04 11:19] LABS: ALBUMIN 4.4 GM/DL (3.5-5.2); ALKALINE PHOSPHATASE 93 U/L (44-147); BLOOD UREA NITROGEN 18 MG/DL (6-20); CALCIUM LEVEL 9.3 MG/DL (8.5-10.2); CARBON DIOXIDE LEVEL 28 MEQ/L (23-31); CHLORIDE LEVEL 102 MMOL/L (98-107); CREATININE FOR GFR 1.07 MG/DL (0.90-1.30); GLOMERULAR FILTRATION RATE > 60.0 (>49); GLUCOSE, FASTING 97 MG/DL (70-105); POTASSIUM SERUM 4.3 MMOL/L (3.5-5.1); SODIUM LEVEL 138 MMOL/L (135-145); TOTAL PROTEIN 6.8 GM/DL (6.4-8.3)
[2019-05-05 10:48] VITALS: BP 123/81; TEMP 97.3; O2SAT 97
[2019-05-05] MEDS: DENOSUMAB 120 MG/1.7 ML VIAL SC ONE (11:14)
[2019-06-01 10:16] LABS: HEMOGLOBIN 13.2 g/dl (13.5-17.5); LYMPH % 30.7 % (24.0-44.0); MEAN CORPUSCULAR HEMOGLOBIN 29.4 pg (27.0-33.0); MEAN CORPUSCULAR HGB CONC 33.8 g/dl (32.0-36.5); MEAN CORPUSCULAR VOLUME 86.9 fl (80.0-96.0); NEUTROPHILS # 2.8 10^3/uL (1.8-7.7); NEUTROPHILS % 61.3 % (36.0-66.0); RED BLOOD COUNT 4.49 10^6/uL (4.30-6.10); WHITE BLOOD COUNT 4.6 10^3/uL (4.0-10.0)
[2019-06-01 11:07] LABS: ALBUMIN 4.3 GM/DL (3.5-5.2); ALKALINE PHOSPHATASE 72 U/L (44-147); BLOOD UREA NITROGEN 19 MG/DL (6-20); CARBON DIOXIDE LEVEL 27 MEQ/L (23-31); CHLORIDE LEVEL 104 MMOL/L (98-107); CREATININE FOR GFR 1.09 MG/DL (0.90-1.30); GLOMERULAR FILTRATION RATE > 60.0 (>49); GLUCOSE, FASTING 104 MG/DL (70-105); SODIUM LEVEL 138 MMOL/L (135-145); TOTAL PROTEIN 6.7 GM/DL (6.4-8.3)
[2019-06-02 10:05] VITALS: BP 145/82; TEMP 98; O2SAT 97
[2019-06-02] MEDS: DENOSUMAB 120 MG/1.7 ML VIAL SC ONE (10:44)
[2019-06-29 10:14] LABS: HEMATOCRIT 39.4 % (42.0-52.0); HEMOGLOBIN 13.4 g/dl (13.5-17.5); LYMPH % 33.7 % (24.0-44.0); MEAN CORPUSCULAR HEMOGLOBIN 29.6 pg (27.0-33.0); MEAN CORPUSCULAR VOLUME 87.2 fl (80.0-96.0); RED BLOOD COUNT 4.52 10^6/uL (4.30-6.10); WHITE BLOOD COUNT 5.2 10^3/uL (4.0-10.0)
[2019-06-29 11:11] LABS: ALBUMIN 4.4 GM/DL (3.5-5.2); ALKALINE PHOSPHATASE 65 U/L (44-147); BLOOD UREA NITROGEN 19 MG/DL (6-20); CARBON DIOXIDE LEVEL 26 MEQ/L (23-31); CHLORIDE LEVEL 102 MMOL/L (98-107); GLOMERULAR FILTRATION RATE > 60.0 (>49); GLUCOSE, FASTING 83 MG/DL (70-105); SODIUM LEVEL 138 MMOL/L (135-145); TOTAL PROTEIN 6.6 GM/DL (6.4-8.3)
[2019-06-30 11:22] VITALS: BP 144/44; TEMP 96.8; O2SAT 98
[2019-06-30] MEDS: DENOSUMAB 120 MG/1.7 ML VIAL SC ONE (11:49)
[2019-07-28 09:24] VITALS: BP 137/83; TEMP 97.8; O2SAT 98
[2019-07-28 09:29] LABS: HEMATOCRIT 39.4 % (42.0-52.0); HEMOGLOBIN 13.4 g/dl (13.5-17.5); LYMPH % 34.2 % (24.0-44.0); MEAN CORPUSCULAR HEMOGLOBIN 29.9 pg (27.0-33.0); NEUTROPHILS # 2.8 10^3/uL (1.8-7.7); NEUTROPHILS % 57.6 % (36.0-66.0); RED BLOOD COUNT 4.48 10^6/uL (4.30-6.10); WHITE BLOOD COUNT 4.8 10^3/uL (4.0-10.0)
[2019-07-28 09:37] LABS: BLOOD UREA NITROGEN 20 MG/DL (6-20); CALCIUM LEVEL 9.1 MG/DL (8.5-10.2); CARBON DIOXIDE LEVEL 27 MEQ/L (23-31); CHLORIDE LEVEL 104 MMOL/L (98-107); CREATININE FOR GFR 0.83 MG/DL (0.90-1.30); GLUCOSE, FASTING 109 MG/DL (70-105); SODIUM LEVEL 137 MMOL/L (135-145)
[2019-07-28 09:38] LABS: GLOMERULAR FILTRATION RATE > 60.0 (>49)
[2019-07-28] MEDS: DENOSUMAB 120 MG/1.7 ML VIAL SC ONE (10:24)
[2019-08-25 13:05] LABS: HEMATOCRIT 38.2 % (42.0-52.0); LYMPH % 26.2 % (24.0-44.0); MEAN CORPUSCULAR HEMOGLOBIN 30.2 pg (27.0-33.0); MEAN CORPUSCULAR VOLUME 88.6 fl (80.0-96.0); NEUTROPHILS # 3.8 10^3/uL (1.8-7.7); NEUTROPHILS % 67.2 % (36.0-66.0); RED BLOOD COUNT 4.31 10^6/uL (4.30-6.10); WHITE BLOOD COUNT 5.7 10^3/uL (4.0-10.0)
[2019-08-25 13:07] VITALS: BP 138/83; TEMP 97.3; O2SAT 98
[2019-08-25 13:16] LABS: ALBUMIN 4.1 GM/DL (3.5-5.2); ALKALINE PHOSPHATASE 60 U/L (44-147); BLOOD UREA NITROGEN 15 MG/DL (6-20); CARBON DIOXIDE LEVEL 29 MEQ/L (23-31); CHLORIDE LEVEL 103 MMOL/L (98-107); CREATININE FOR GFR 0.87 MG/DL (0.90-1.30); GLOMERULAR FILTRATION RATE > 60.0 (>49); GLUCOSE, FASTING 115 MG/DL (70-105); SODIUM LEVEL 140 MMOL/L (135-145); TOTAL PROTEIN 6.6 GM/DL (6.4-8.3)
[2019-08-25 13:21] LABS: APPEARANCE, URINE CLEAR (CLEAR); BACTERIA, URINE AUTO NEGATIVE (NEGATIVE); BILIRUBIN, URINE AUTO NEGATIVE (NEGATIVE); BLOOD, URINE BLOOD NEGATIVE (NEGATIVE); COLOR, URINE YELLOW (YELLOW); GLUCOSE, URINE (UA) AUTO NEGATIVE (NEGATIVE); KETONE, URINE AUTO NEGATIVE (NEGATIVE); LEUKOCYTE ESTERASE, URINE AUTO NEGATIVE (NEGATIVE); MUCUS, URINE SMALL (NEGATIVE); NITRITE, URINE AUTO NEGATIVE (NEGATIVE); PROTEIN, URINE AUTO NEGATIVE (NEGATIVE); RBC, URINE AUTO 3 /HPF (0-3); SPECIFIC GRAVITY URINE AUTO 1.012 (1.002-1.035); SQUAMOUS EPITHELIAL CELL UR AU 0 /HPF (0-6); UROBILINOGEN, URINE AUTO 0.2 mg/dL (0.0-2.0); WBC, URINE AUTO 0 /HPF (0-3)
[2019-08-25] MEDS: DENOSUMAB 120 MG/1.7 ML VIAL SC ONE (13:47)
[2019-09-23 14:32] VITALS: BP 140/88; TEMP 97.8; O2SAT 97
[2019-09-23 14:49] LABS: BASO % 0.5 % (0.0-1.0); EOS # 0.2 10^3/uL (0.0-0.5); EOS % 2.4 % (0.0-3.0); HEMATOCRIT 38.8 % (42.0-52.0); HEMOGLOBIN 13.1 g/dl (13.5-17.5); LYMPH # 1.8 10^3/uL (1.5-5.0); LYMPH % 28.7 % (24.0-44.0); MEAN CORPUSCULAR HEMOGLOBIN 29.4 pg (27.0-33.0); MEAN CORPUSCULAR HGB CONC 33.8 g/dl (32.0-36.5); MONO # 0.6 10^3/uL (0.0-0.8); MONO % 8.8 % (0.0-5.0); NEUTROPHILS # 3.7 10^3/uL (1.5-8.5); PLATELET COUNT, AUTOMATED 273 10^3/uL (150-450); RED BLOOD COUNT 4.46 10^6/uL (4.30-6.10); WHITE BLOOD COUNT 6.3 10^3/uL (4.0-10.0)
[2019-09-23 15:15] LABS: ALBUMIN 3.4 GM/DL (3.2-5.2); ALKALINE PHOSPHATASE 93 U/L (45-117); ALT/SGPT 26 U/L (12-78); AST/SGOT 21 U/L (7-37); BILIRUBIN,TOTAL 0.2 MG/DL (0.2-1.0); BLOOD UREA NITROGEN 18 MG/DL (7-18); CALCIUM LEVEL 8.9 MG/DL (8.8-10.2); CARBON DIOXIDE LEVEL 29 MEQ/L (21-32); CHLORIDE LEVEL 107 MEQ/L (98-107); CREATININE FOR GFR 0.91 MG/DL (0.70-1.30); GLOMERULAR FILTRATION RATE > 60.0 (>49); GLUCOSE, FASTING 102 MG/DL (70-100); POTASSIUM SERUM 4.1 MEQ/L (3.5-5.1); PROSTATIC SPECIFIC AG MONITOR 1.06 NG/ML (< 4.00); SODIUM LEVEL 140 MEQ/L (136-145); TOTAL PROTEIN 6.6 GM/DL (6.4-8.2)
[2019-09-23] MEDS: DENOSUMAB 120 MG/1.7 ML VIAL SC ONE (15:31)
[2019-10-21 08:33] LABS: BASO % 0.8 % (0.0-1.0); EOS # 0.1 10^3/uL (0.0-0.5); EOS % 2.2 % (0.0-3.0); HEMATOCRIT 39.1 % (42.0-52.0); HEMOGLOBIN 13.4 g/dl (13.5-17.5); LYMPH # 1.5 10^3/uL (1.5-5.0); LYMPH % 28.6 % (24.0-44.0); MEAN CORPUSCULAR HEMOGLOBIN 29.2 pg (27.0-33.0); MEAN CORPUSCULAR HGB CONC 34.3 g/dl (32.0-36.5); MEAN CORPUSCULAR VOLUME 85.2 fl (80.0-96.0); MONO # 0.5 10^3/uL (0.0-0.8); MONO % 8.8 % (0.0-5.0); NEUTROPHILS % 59.2 % (36.0-66.0); PLATELET COUNT, AUTOMATED 245 10^3/uL (150-450); RED BLOOD COUNT 4.59 10^6/uL (4.30-6.10); WHITE BLOOD COUNT 5.1 10^3/uL (4.0-10.0)
[2019-10-21 08:51] VITALS: BP 134/88; TEMP 98; O2SAT 96
[2019-10-21 08:55] LABS: ALBUMIN 3.7 GM/DL (3.2-5.2); ALKALINE PHOSPHATASE 76 U/L (45-117); ALT/SGPT 28 U/L (12-78); AST/SGOT 16 U/L (7-37); BILIRUBIN,TOTAL 0.3 MG/DL (0.2-1.0); BLOOD UREA NITROGEN 17 MG/DL (7-18); CALCIUM LEVEL 9.3 MG/DL (8.8-10.2); CARBON DIOXIDE LEVEL 27 MEQ/L (21-32); CHLORIDE LEVEL 106 MEQ/L (98-107); CREATININE FOR GFR 0.85 MG/DL (0.70-1.30); GLOMERULAR FILTRATION RATE > 60.0 (>49); GLUCOSE, FASTING 99 MG/DL (70-100); POTASSIUM SERUM 4.2 MEQ/L (3.5-5.1); SODIUM LEVEL 139 MEQ/L (136-145); TOTAL PROTEIN 7.4 GM/DL (6.4-8.2)
[2019-10-21] MEDS: DENOSUMAB 120 MG/1.7 ML VIAL SC ONE (09:55)
[2019-11-22 15:15] LABS: BASO % 0.6 % (0.0-1.0); EOS # 0.1 10^3/uL (0.0-0.5); EOS % 1.2 % (0.0-3.0); HEMATOCRIT 38.7 % (42.0-52.0); HEMOGLOBIN 13.2 g/dl (13.5-17.5); LYMPH # 1.8 10^3/uL (1.5-5.0); LYMPH % 27.1 % (24.0-44.0); MEAN CORPUSCULAR HEMOGLOBIN 29.3 pg (27.0-33.0); MEAN CORPUSCULAR HGB CONC 34.1 g/dl (32.0-36.5); MEAN CORPUSCULAR VOLUME 85.8 fl (80.0-96.0); MONO # 0.6 10^3/uL (0.0-0.8); MONO % 9.7 % (0.0-5.0); NEUTROPHILS % 61.1 % (36.0-66.0); PLATELET COUNT, AUTOMATED 250 10^3/uL (150-450); RED BLOOD COUNT 4.51 10^6/uL (4.30-6.10); WHITE BLOOD COUNT 6.5 10^3/uL (4.0-10.0)
[2019-11-22 15:47] LABS: ALBUMIN 3.5 GM/DL (3.2-5.2); ALKALINE PHOSPHATASE 72 U/L (45-117); ALT/SGPT 27 U/L (12-78); AST/SGOT 18 U/L (7-37); BILIRUBIN,TOTAL 0.2 MG/DL (0.2-1.0); BLOOD UREA NITROGEN 16 MG/DL (7-18); CALCIUM LEVEL 9.4 MG/DL (8.8-10.2); CARBON DIOXIDE LEVEL 28 MEQ/L (21-32); CHLORIDE LEVEL 105 MEQ/L (98-107); CREATININE FOR GFR 0.87 MG/DL (0.70-1.30); GLOMERULAR FILTRATION RATE > 60.0 (>49); GLUCOSE, FASTING 94 MG/DL (70-100); SODIUM LEVEL 139 MEQ/L (136-145); TOTAL PROTEIN 7.2 GM/DL (6.4-8.2)
[2019-11-22] MEDS: DENOSUMAB 120 MG/1.7 ML VIAL SC ONE (15:52)
[2019-12-22 10:37] VITALS: BP 154/90; O2SAT 97
[2019-12-22 10:52] LABS: BASO % 0.8 % (0.0-1.0); EOS # 0.1 10^3/uL (0.0-0.5); HEMATOCRIT 40.5 % (42.0-52.0); HEMOGLOBIN 13.2 g/dl (13.5-17.5); LYMPH # 1.6 10^3/uL (1.5-5.0); LYMPH % 31.9 % (24.0-44.0); MEAN CORPUSCULAR HEMOGLOBIN 28.2 pg (27.0-33.0); MEAN CORPUSCULAR HGB CONC 32.6 g/dl (32.0-36.5); MEAN CORPUSCULAR VOLUME 86.5 fl (80.0-96.0); MONO # 0.5 10^3/uL (0.0-0.8); MONO % 8.9 % (0.0-5.0); NEUTROPHILS # 2.9 10^3/uL (1.5-8.5); PLATELET COUNT, AUTOMATED 249 10^3/uL (150-450); RED BLOOD COUNT 4.68 10^6/uL (4.30-6.10); WHITE BLOOD COUNT 5.1 10^3/uL (4.0-10.0)
[2019-12-22 11:16] LABS: ALBUMIN 3.6 GM/DL (3.2-5.2); ALKALINE PHOSPHATASE 65 U/L (45-117); ALT/SGPT 30 U/L (12-78); AST/SGOT 14 U/L (7-37); BILIRUBIN,TOTAL 0.3 MG/DL (0.2-1.0); BLOOD UREA NITROGEN 17 MG/DL (7-18); CARBON DIOXIDE LEVEL 27 MEQ/L (21-32); CHLORIDE LEVEL 105 MEQ/L (98-107); CREATININE FOR GFR 0.89 MG/DL (0.70-1.30); GLOMERULAR FILTRATION RATE > 60.0 (>49); GLUCOSE, FASTING 90 MG/DL (70-100); POTASSIUM SERUM 3.8 MEQ/L (3.5-5.1); SODIUM LEVEL 139 MEQ/L (136-145); TOTAL PROTEIN 7.1 GM/DL (6.4-8.2)
[2019-12-22] MEDS: DENOSUMAB 120 MG/1.7 ML VIAL SC ONE (11:19)
[2020-01-20 12:12] LABS: ALBUMIN 3.8 GM/DL (3.2-5.2); ALKALINE PHOSPHATASE 73 U/L (45-117); ALT/SGPT 30 U/L (12-78); AST/SGOT 21 U/L (7-37); BILIRUBIN,TOTAL 0.4 MG/DL (0.2-1.0); BLOOD UREA NITROGEN 14 MG/DL (7-18); CALCIUM LEVEL 9.2 MG/DL (8.8-10.2); CARBON DIOXIDE LEVEL 31 MEQ/L (21-32); CHLORIDE LEVEL 106 MEQ/L (98-107); CREATININE FOR GFR 0.95 MG/DL (0.70-1.30); GLOMERULAR FILTRATION RATE > 60.0 (>49); GLUCOSE, FASTING 102 MG/DL (70-100); POTASSIUM SERUM 3.7 MEQ/L (3.5-5.1); SODIUM LEVEL 137 MEQ/L (136-145); TOTAL PROTEIN 7.5 GM/DL (6.4-8.2)
[2020-01-20] MEDS: DENOSUMAB 120 MG/1.7 ML VIAL SC ONE (12:30)
[2020-02-17 10:12] VITALS: BP 147/91; O2SAT 96
[2020-02-17 10:29] LABS: BASO % 0.6 % (0.0-1.0); EOS # 0.1 10^3/uL (0.0-0.5); EOS % 0.9 % (0.0-3.0); HEMATOCRIT 41.9 % (42.0-52.0); HEMOGLOBIN 14.2 g/dl (13.5-17.5); LYMPH # 1.7 10^3/uL (1.5-5.0); LYMPH % 26.3 % (24.0-44.0); MEAN CORPUSCULAR HEMOGLOBIN 28.9 pg (27.0-33.0); MEAN CORPUSCULAR HGB CONC 33.9 g/dl (32.0-36.5); MEAN CORPUSCULAR VOLUME 85.3 fl (80.0-96.0); MONO # 0.6 10^3/uL (0.0-0.8); MONO % 9.1 % (0.0-5.0); NEUTROPHILS # 4.1 10^3/uL (1.5-8.5); NEUTROPHILS % 62.6 % (36.0-66.0); PLATELET COUNT, AUTOMATED 272 10^3/uL (150-450); RED BLOOD COUNT 4.91 10^6/uL (4.30-6.10); WHITE BLOOD COUNT 6.6 10^3/uL (4.0-10.0)
[2020-02-17 11:00] LABS: ALBUMIN 3.8 GM/DL (3.2-5.2); ALKALINE PHOSPHATASE 80 U/L (45-117); ALT/SGPT 27 U/L (12-78); AST/SGOT 16 U/L (7-37); BILIRUBIN,TOTAL 0.4 MG/DL (0.2-1.0); BLOOD UREA NITROGEN 12 MG/DL (7-18); CALCIUM LEVEL 9.7 MG/DL (8.8-10.2); CARBON DIOXIDE LEVEL 31 MEQ/L (21-32); CHLORIDE LEVEL 104 MEQ/L (98-107); CREATININE FOR GFR 0.85 MG/DL (0.70-1.30); GLOMERULAR FILTRATION RATE > 60.0 (>49); GLUCOSE, FASTING 88 MG/DL (70-100); POTASSIUM SERUM 3.9 MEQ/L (3.5-5.1); SODIUM LEVEL 137 MEQ/L (136-145); TOTAL PROTEIN 7.8 GM/DL (6.4-8.2)
[2020-02-17] MEDS: DENOSUMAB 120 MG/1.7 ML VIAL SC ONE (11:09)
[2020-03-16] MEDS: DENOSUMAB 120 MG/1.7 ML VIAL SC ONE (10:47)
[2020-04-13 10:07] VITALS: BP 135/93; O2SAT 97
[2020-04-13] MEDS: DENOSUMAB 120 MG/1.7 ML VIAL SC ONE (10:52)
[2020-05-11] MEDS: DENOSUMAB 120 MG/1.7 ML VIAL SC ONE (10:57)
[2020-05-11 11:12] VITALS: BP 148/89; O2SAT 97
[2020-06-08 10:43] LABS: BASO % 0.4 % (0.0-1.0); EOS # 0.1 10^3/uL (0.0-0.5); EOS % 1.5 % (0.0-3.0); HEMATOCRIT 39.3 % (42.0-52.0); HEMOGLOBIN 13.2 g/dl (13.5-17.5); LYMPH # 1.6 10^3/uL (1.5-5.0); MEAN CORPUSCULAR HEMOGLOBIN 28.3 pg (27.0-33.0); MEAN CORPUSCULAR HGB CONC 33.6 g/dl (32.0-36.5); MEAN CORPUSCULAR VOLUME 84.2 fl (80.0-96.0); MONO # 0.4 10^3/uL (0.0-0.8); MONO % 8.4 % (0.0-5.0); NEUTROPHILS # 2.6 10^3/uL (1.5-8.5); NEUTROPHILS % 55.3 % (36.0-66.0); PLATELET COUNT, AUTOMATED 253 10^3/uL (150-450); RED BLOOD COUNT 4.67 10^6/uL (4.30-6.10); WHITE BLOOD COUNT 4.6 10^3/uL (4.0-10.0)
[2020-06-08 11:07] LABS: ALBUMIN 3.6 GM/DL (3.2-5.2); ALKALINE PHOSPHATASE 75 U/L (45-117); ALT/SGPT 24 U/L (12-78); AST/SGOT 18 U/L (7-37); BILIRUBIN,TOTAL 0.4 MG/DL (0.2-1.0); BLOOD UREA NITROGEN 11 MG/DL (7-18); CALCIUM LEVEL 9.1 MG/DL (8.8-10.2); CARBON DIOXIDE LEVEL 28 MEQ/L (21-32); CHLORIDE LEVEL 105 MEQ/L (98-107); CREATININE FOR GFR 0.92 MG/DL (0.70-1.30); GLOMERULAR FILTRATION RATE > 60.0 (>49); GLUCOSE, FASTING 96 MG/DL (70-100); POTASSIUM SERUM 4.1 MEQ/L (3.5-5.1); SODIUM LEVEL 138 MEQ/L (136-145)
[2020-06-08] MEDS: DENOSUMAB 120 MG/1.7 ML VIAL SC ONE (11:18)
[2020-07-10 12:00] VITALS: BP 179/105; O2SAT 97
[2020-07-10] MEDS: DENOSUMAB 120 MG/1.7 ML VIAL SC ONE (12:00)
[2020-07-10 12:30] LABS: BASO % 0.6 % (0.0-1.0); EOS # 0.1 10^3/uL (0.0-0.5); EOS % 1.2 % (0.0-3.0); HEMATOCRIT 41.3 % (42.0-52.0); HEMOGLOBIN 13.9 g/dl (13.5-17.5); LYMPH # 1.6 10^3/uL (1.5-5.0); LYMPH % 22.7 % (24.0-44.0); MEAN CORPUSCULAR HEMOGLOBIN 28.3 pg (27.0-33.0); MEAN CORPUSCULAR HGB CONC 33.7 g/dl (32.0-36.5); MEAN CORPUSCULAR VOLUME 84.1 fl (80.0-96.0); MONO # 0.5 10^3/uL (0.0-0.8); MONO % 7.2 % (0.0-5.0); NEUTROPHILS # 4.6 10^3/uL (1.5-8.5); NEUTROPHILS % 67.9 % (36.0-66.0); PLATELET COUNT, AUTOMATED 259 10^3/uL (150-450); RED BLOOD COUNT 4.91 10^6/uL (4.30-6.10); WHITE BLOOD COUNT 6.8 10^3/uL (4.0-10.0)
[2020-07-10 12:56] LABS: ALBUMIN 3.6 GM/DL (3.2-5.2); ALKALINE PHOSPHATASE 69 U/L (45-117); ALT/SGPT 19 U/L (12-78); AST/SGOT 14 U/L (7-37); BILIRUBIN,TOTAL 0.4 MG/DL (0.2-1.0); BLOOD UREA NITROGEN 19 MG/DL (7-18); CALCIUM LEVEL 9.1 MG/DL (8.8-10.2); CARBON DIOXIDE LEVEL 26 MEQ/L (21-32); CHLORIDE LEVEL 107 MEQ/L (98-107); GLOMERULAR FILTRATION RATE > 60.0 (>49); GLUCOSE, FASTING 97 MG/DL (70-100); PROSTATIC SPECIFIC AG MONITOR 1.23 NG/ML (< 4.00); SODIUM LEVEL 139 MEQ/L (136-145); TOTAL PROTEIN 7.4 GM/DL (6.4-8.2)
[2020-07-11] MEDS: DENOSUMAB 120 MG/1.7 ML VIAL SC ONE (10:27)
[2020-08-08 10:18] VITALS: BP 154/100; O2SAT 95
[2020-08-08 11:14] LABS: BASO % 0.7 % (0.0-1.0); EOS # 0.1 10^3/uL (0.0-0.5); EOS % 1.3 % (0.0-3.0); HEMATOCRIT 39.6 % (42.0-52.0); HEMOGLOBIN 12.9 g/dl (13.5-17.5); LYMPH # 1.5 10^3/uL (1.5-5.0); LYMPH % 28.6 % (24.0-44.0); MEAN CORPUSCULAR HEMOGLOBIN 27.7 pg (27.0-33.0); MEAN CORPUSCULAR HGB CONC 32.6 g/dl (32.0-36.5); MEAN CORPUSCULAR VOLUME 85.2 fl (80.0-96.0); MONO # 0.5 10^3/uL (0.0-0.8); MONO % 8.4 % (0.0-5.0); NEUTROPHILS # 3.2 10^3/uL (1.5-8.5); NEUTROPHILS % 60.6 % (36.0-66.0); PLATELET COUNT, AUTOMATED 270 10^3/uL (150-450); RED BLOOD COUNT 4.65 10^6/uL (4.30-6.10); WHITE BLOOD COUNT 5.4 10^3/uL (4.0-10.0)
[2020-08-08 12:10] LABS: ALBUMIN 3.3 GM/DL (3.2-5.2); ALKALINE PHOSPHATASE 78 U/L (45-117); ALT/SGPT 20 U/L (12-78); AST/SGOT 11 U/L (7-37); BILIRUBIN,TOTAL 0.4 MG/DL (0.2-1.0); BLOOD UREA NITROGEN 15 MG/DL (7-18); CALCIUM LEVEL 8.9 MG/DL (8.8-10.2); CARBON DIOXIDE LEVEL 27 MEQ/L (21-32); CHLORIDE LEVEL 105 MEQ/L (98-107); GLOMERULAR FILTRATION RATE > 60.0 (>49); GLUCOSE, FASTING 97 MG/DL (70-100); POTASSIUM SERUM 3.8 MEQ/L (3.5-5.1); PROSTATIC SPECIFIC AG MONITOR 1.18 NG/ML (< 4.00); SODIUM LEVEL 136 MEQ/L (136-145); TOTAL PROTEIN 7.1 GM/DL (6.4-8.2)
[2020-08-08 12:11] LABS: TESTOSTERONE 18 NG/DL (241-827)
[2020-08-08] MEDS: DENOSUMAB 120 MG/1.7 ML VIAL SC ONE (12:17)
[2020-09-05 13:07] VITALS: BP 140/83; O2SAT 97
[2020-09-05] MEDS: DENOSUMAB 120 MG/1.7 ML VIAL SC ONE (13:51)
[2020-10-03 14:50] VITALS: BP 149/92; O2SAT 99
[2020-10-03] MEDS: DENOSUMAB 120 MG/1.7 ML VIAL SC SCH (15:26)
[2020-11-02] MEDS: DENOSUMAB 120 MG/1.7 ML VIAL SC SCH (15:21)
[2020-12-01] MEDS: DENOSUMAB 120 MG/1.7 ML VIAL SC SCH (14:21)
[2021-01-01 14:29] LABS: ALBUMIN 3.6 GM/DL (3.2-5.2); ALKALINE PHOSPHATASE 87 U/L (45-117); ALT/SGPT 20 U/L (12-78); AST/SGOT 11 U/L (7-37); BILIRUBIN,TOTAL 0.3 MG/DL (0.2-1.0); BLOOD UREA NITROGEN 18 MG/DL (7-18); CALCIUM LEVEL 9.5 MG/DL (8.8-10.2); CARBON DIOXIDE LEVEL 33 MEQ/L (21-32); CHLORIDE LEVEL 102 MEQ/L (98-107); GLOMERULAR FILTRATION RATE > 60.0 (>49); GLUCOSE, FASTING 101 MG/DL (70-100); POTASSIUM SERUM 3.5 MEQ/L (3.5-5.1); SODIUM LEVEL 140 MEQ/L (136-145); TOTAL PROTEIN 7.4 GM/DL (6.4-8.2)
[2021-01-01] MEDS: DENOSUMAB 120 MG/1.7 ML VIAL SC SCH (15:05)
[2021-01-26 14:05] VITALS: BP 146/83; O2SAT 97
[2021-01-26 14:43] LABS: ALBUMIN 3.3 GM/DL (3.2-5.2); ALKALINE PHOSPHATASE 87 U/L (45-117); ALT/SGPT 21 U/L (12-78); AST/SGOT 11 U/L (7-37); BILIRUBIN,TOTAL 0.2 MG/DL (0.2-1.0); BLOOD UREA NITROGEN 22 MG/DL (7-18); CARBON DIOXIDE LEVEL 28 MEQ/L (21-32); CHLORIDE LEVEL 108 MEQ/L (98-107); CREATININE FOR GFR 0.88 MG/DL (0.70-1.30); GLOMERULAR FILTRATION RATE > 60.0 (>49); GLUCOSE, FASTING 96 MG/DL (70-100); POTASSIUM SERUM 3.5 MEQ/L (3.5-5.1); SODIUM LEVEL 141 MEQ/L (136-145); TOTAL PROTEIN 6.9 GM/DL (6.4-8.2)
[2021-01-26] MEDS: DENOSUMAB 120 MG/1.7 ML VIAL SC SCH (15:03)
[2021-02-28 14:58] LABS: BASO % 0.5 % (0.0-1.0); EOS # 0.1 10^3/uL (0.0-0.5); EOS % 1.2 % (0.0-3.0); HEMATOCRIT 37.5 % (42.0-52.0); HEMOGLOBIN 12.4 g/dl (13.5-17.5); LYMPH # 1.7 10^3/uL (1.5-5.0); LYMPH % 29.9 % (24.0-44.0); MEAN CORPUSCULAR HEMOGLOBIN 28.5 pg (27.0-33.0); MEAN CORPUSCULAR HGB CONC 33.1 g/dl (32.0-36.5); MEAN CORPUSCULAR VOLUME 86.2 fl (80.0-96.0); MONO # 0.5 10^3/uL (0.0-0.8); MONO % 8.4 % (2.0-8.0); NEUTROPHILS # 3.5 10^3/uL (1.5-8.5); NEUTROPHILS % 59.5 % (36.0-66.0); PLATELET COUNT, AUTOMATED 272 10^3/uL (150-450); RED BLOOD COUNT 4.35 10^6/uL (4.30-6.10); WHITE BLOOD COUNT 5.8 10^3/uL (4.0-10.0)
[2021-02-28 15:50] LABS: ALBUMIN 3.6 GM/DL (3.2-5.2); ALKALINE PHOSPHATASE 91 U/L (45-117); ALT/SGPT 17 U/L (12-78); AST/SGOT 13 U/L (7-37); BILIRUBIN,TOTAL 0.3 MG/DL (0.2-1.0); BLOOD UREA NITROGEN 17 MG/DL (7-18); CALCIUM LEVEL 9.5 MG/DL (8.8-10.2); CARBON DIOXIDE LEVEL 28 MEQ/L (21-32); CHLORIDE LEVEL 103 MEQ/L (98-107); CREATININE FOR GFR 0.79 MG/DL (0.70-1.30); GLOMERULAR FILTRATION RATE > 60.0 (>49); GLUCOSE, FASTING 82 MG/DL (70-100); POTASSIUM SERUM 3.8 MEQ/L (3.5-5.1); PROSTATIC SPECIFIC AG MONITOR 3.43 NG/ML (< 4.00); SODIUM LEVEL 138 MEQ/L (136-145); TOTAL PROTEIN 6.7 GM/DL (6.4-8.2)
[2021-03-05] MEDS: DENOSUMAB 120 MG/1.7 ML VIAL SC SCH (15:40)
[2021-04-02 13:11] LABS: BLOOD UREA NITROGEN 16 MG/DL (7-18); CALCIUM LEVEL 8.4 MG/DL (8.8-10.2); CARBON DIOXIDE LEVEL 29 MEQ/L (21-32); CHLORIDE LEVEL 103 MEQ/L (98-107); CREATININE FOR GFR 0.78 MG/DL (0.70-1.30); GLOMERULAR FILTRATION RATE > 60.0 (>49); GLUCOSE, FASTING 86 MG/DL (70-100); POTASSIUM SERUM 3.8 MEQ/L (3.5-5.1); SODIUM LEVEL 136 MEQ/L (136-145)
[2021-04-02 14:21] LABS: ALBUMIN 3.4 GM/DL (3.2-5.2); ALKALINE PHOSPHATASE 86 U/L (45-117); ALT/SGPT 17 U/L (12-78); AST/SGOT 12 U/L (7-37); BILIRUBIN,TOTAL 0.4 MG/DL (0.2-1.0); TOTAL PROTEIN 7.1 GM/DL (6.4-8.2)
[2021-05-07 13:56] VITALS: BP 140/87; O2SAT 98
[2021-05-07 14:07] LABS: BASO % 0.5 % (0.0-1.0); EOS # 0.1 10^3/uL (0.0-0.5); EOS % 1.5 % (0.0-3.0); HEMATOCRIT 37.3 % (42.0-52.0); HEMOGLOBIN 12.4 g/dl (13.5-17.5); LYMPH # 1.8 10^3/uL (1.5-5.0); LYMPH % 30.1 % (24.0-44.0); MEAN CORPUSCULAR HEMOGLOBIN 28.3 pg (27.0-33.0); MEAN CORPUSCULAR HGB CONC 33.2 g/dl (32.0-36.5); MEAN CORPUSCULAR VOLUME 85.2 fl (80.0-96.0); MONO # 0.5 10^3/uL (0.0-0.8); NEUTROPHILS # 3.4 10^3/uL (1.5-8.5); NEUTROPHILS % 58.6 % (36.0-66.0); PLATELET COUNT, AUTOMATED 242 10^3/uL (150-450); RED BLOOD COUNT 4.38 10^6/uL (4.30-6.10); WHITE BLOOD COUNT 5.9 10^3/uL (4.0-10.0)
[2021-05-07 14:46] LABS: ALBUMIN 3.3 GM/DL (3.2-5.2); ALKALINE PHOSPHATASE 86 U/L (45-117); ALT/SGPT 18 U/L (12-78); AST/SGOT 15 U/L (7-37); BILIRUBIN,TOTAL 0.2 MG/DL (0.2-1.0); BLOOD UREA NITROGEN 24 MG/DL (7-18); CALCIUM LEVEL 9.5 MG/DL (8.8-10.2); CARBON DIOXIDE LEVEL 29 MEQ/L (21-32); CHLORIDE LEVEL 103 MEQ/L (98-107); GLOMERULAR FILTRATION RATE > 60.0 (>49); GLUCOSE, FASTING 99 MG/DL (70-100); POTASSIUM SERUM 3.7 MEQ/L (3.5-5.1); PROSTATIC SPECIFIC AG MONITOR 4.65 NG/ML (< 4.00); SODIUM LEVEL 137 MEQ/L (136-145); TOTAL PROTEIN 7.1 GM/DL (6.4-8.2)
[2021-05-07] MEDS: DENOSUMAB 120 MG/1.7 ML VIAL SC SCH (15:06)
[2021-06-04 09:49] VITALS: BP 151/94; O2SAT 96
[2021-06-04] MEDS: DENOSUMAB 120 MG/1.7 ML VIAL SC SCH (10:52)
[2021-06-21 08:40] LABS: BASO % 0.4 % (0.0-1.0); EOS # 0.1 10^3/uL (0.0-0.5); EOS % 0.7 % (0.0-3.0); HEMATOCRIT 39.8 % (42.0-52.0); LYMPH # 1.3 10^3/uL (1.5-5.0); LYMPH % 15.8 % (24.0-44.0); MEAN CORPUSCULAR HEMOGLOBIN 28.4 pg (27.0-33.0); MEAN CORPUSCULAR HGB CONC 32.7 g/dl (32.0-36.5); MEAN CORPUSCULAR VOLUME 86.9 fl (80.0-96.0); MONO # 0.6 10^3/uL (0.0-0.8); MONO % 6.7 % (2.0-8.0); NEUTROPHILS # 6.2 10^3/uL (1.5-8.5); NEUTROPHILS % 75.9 % (36.0-66.0); PLATELET COUNT, AUTOMATED 261 10^3/uL (150-450); RED BLOOD COUNT 4.58 10^6/uL (4.30-6.10); WHITE BLOOD COUNT 8.2 10^3/uL (4.0-10.0)
[2021-06-21 10:02] LABS: ALBUMIN 3.4 GM/DL (3.2-5.2); ALKALINE PHOSPHATASE 113 U/L (45-117); ALT/SGPT 20 U/L (12-78); AST/SGOT 13 U/L (7-37); BILIRUBIN,TOTAL 0.4 MG/DL (0.2-1.0); BLOOD UREA NITROGEN 27 MG/DL (7-18); CALCIUM LEVEL 9.3 MG/DL (8.8-10.2); CARBON DIOXIDE LEVEL 33 MEQ/L (21-32); CHLORIDE LEVEL 102 MEQ/L (98-107); CREATININE FOR GFR 0.98 MG/DL (0.70-1.30); GLOMERULAR FILTRATION RATE > 60.0 (>49); GLUCOSE, FASTING 90 MG/DL (70-100); POTASSIUM SERUM 3.6 MEQ/L (3.5-5.1); PSA SCREENING 7.91 NG/ML (< 4.00); SODIUM LEVEL 140 MEQ/L (136-145); TOTAL PROTEIN 6.7 GM/DL (6.4-8.2)
[2021-06-25] MEDS: DENOSUMAB 120 MG/1.7 ML VIAL SC SCH (13:15)
[2021-07-30] MEDS: DENOSUMAB 120 MG/1.7 ML VIAL SC SCH (11:00)
[2021-07-30 11:10] VITALS: BP 146/85; O2SAT 97
[2021-09-06 15:30] VITALS: BP 145/86; O2SAT 97
[2021-09-06 15:54] LABS: ALBUMIN 3.2 GM/DL (3.2-5.2); ALKALINE PHOSPHATASE 138 U/L (45-117); ALT/SGPT 23 U/L (12-78); AST/SGOT 12 U/L (7-37); BILIRUBIN,TOTAL 0.4 MG/DL (0.2-1.0); BLOOD UREA NITROGEN 24 MG/DL (7-18); CALCIUM LEVEL 9.2 MG/DL (8.8-10.2); CARBON DIOXIDE LEVEL 32 MEQ/L (21-32); CHLORIDE LEVEL 103 MEQ/L (98-107); CREATININE FOR GFR 1.03 MG/DL (0.70-1.30); GLOMERULAR FILTRATION RATE > 60.0 (>49); GLUCOSE, FASTING 120 MG/DL (70-100); POTASSIUM SERUM 3.7 MEQ/L (3.5-5.1); SODIUM LEVEL 138 MEQ/L (136-145); TOTAL PROTEIN 7.1 GM/DL (6.4-8.2)
[2021-09-06] MEDS: DENOSUMAB 120 MG/1.7 ML VIAL SC SCH (16:16)
[2021-11-07 14:04] VITALS: BP 120/88; O2SAT 98
[2021-11-07 14:16] LABS: BASO % 0.5 % (0.0-1.0); EOS # 0.1 10^3/uL (0.0-0.5); EOS % 1.1 % (0.0-3.0); HEMATOCRIT 38.4 % (42.0-52.0); HEMOGLOBIN 12.6 g/dl (13.5-17.5); LYMPH # 1.4 10^3/uL (1.5-5.0); LYMPH % 25.5 % (24.0-44.0); MEAN CORPUSCULAR HEMOGLOBIN 27.5 pg (27.0-33.0); MEAN CORPUSCULAR HGB CONC 32.8 g/dl (32.0-36.5); MEAN CORPUSCULAR VOLUME 83.8 fl (80.0-96.0); MONO # 0.5 10^3/uL (0.0-0.8); MONO % 9.7 % (2.0-8.0); NEUTROPHILS # 3.5 10^3/uL (1.5-8.5); NEUTROPHILS % 62.8 % (36.0-66.0); PLATELET COUNT, AUTOMATED 249 10^3/uL (150-450); RED BLOOD COUNT 4.58 10^6/uL (4.30-6.10); WHITE BLOOD COUNT 5.5 10^3/uL (4.0-10.0)
[2021-11-07 14:45] LABS: ALBUMIN 3.6 GM/DL (3.2-5.2); ALKALINE PHOSPHATASE 96 U/L (45-117); ALT/SGPT 25 U/L (12-78); AST/SGOT 13 U/L (7-37); BILIRUBIN,TOTAL 0.3 MG/DL (0.2-1.0); BLOOD UREA NITROGEN 17 MG/DL (7-18); CALCIUM LEVEL 9.6 MG/DL (8.8-10.2); CARBON DIOXIDE LEVEL 33 MEQ/L (21-32); CHLORIDE LEVEL 101 MEQ/L (98-107); CREATININE FOR GFR 0.93 MG/DL (0.70-1.30); GLOMERULAR FILTRATION RATE > 60.0 (>49); GLUCOSE, FASTING 83 MG/DL (70-100); POTASSIUM SERUM 3.7 MEQ/L (3.5-5.1); SODIUM LEVEL 137 MEQ/L (136-145); TOTAL PROTEIN 7.3 GM/DL (6.4-8.2)
[2021-12-06 14:37] LABS: ALBUMIN 3.4 GM/DL (3.2-5.2); ALKALINE PHOSPHATASE 84 U/L (45-117); ALT/SGPT 25 U/L (12-78); AST/SGOT 13 U/L (7-37); BILIRUBIN,TOTAL 0.2 MG/DL (0.2-1.0); BLOOD UREA NITROGEN 17 MG/DL (7-18); CALCIUM LEVEL 8.8 MG/DL (8.8-10.2); CARBON DIOXIDE LEVEL 29 MEQ/L (21-32); CHLORIDE LEVEL 105 MEQ/L (98-107); CREATININE FOR GFR 0.86 MG/DL (0.70-1.30); GLOMERULAR FILTRATION RATE > 60.0 (>49); GLUCOSE, FASTING 104 MG/DL (70-100); POTASSIUM SERUM 3.4 MEQ/L (3.5-5.1); SODIUM LEVEL 137 MEQ/L (136-145); TOTAL PROTEIN 6.8 GM/DL (6.4-8.2)
[2021-12-06] MEDS: DENOSUMAB 120 MG/1.7 ML VIAL SC SCH (14:47)
[2022-02-13 14:39] VITALS: BP 122/77; O2SAT 99
[2022-02-13 14:53] LABS: BASO % 0.8 % (0.0-1.0); EOS # 0.1 10^3/uL (0.0-0.5); EOS % 2.3 % (0.0-3.0); HEMATOCRIT 33.8 % (42.0-52.0); HEMOGLOBIN 11.6 g/dl (13.5-17.5); LYMPH % 21.8 % (24.0-44.0); MEAN CORPUSCULAR HEMOGLOBIN 28.6 pg (27.0-33.0); MEAN CORPUSCULAR HGB CONC 34.3 g/dl (32.0-36.5); MEAN CORPUSCULAR VOLUME 83.5 fl (80.0-96.0); MONO # 0.5 10^3/uL (0.0-0.8); MONO % 9.9 % (2.0-8.0); NEUTROPHILS # 3.1 10^3/uL (1.5-8.5); NEUTROPHILS % 64.8 % (36.0-66.0); PLATELET COUNT, AUTOMATED 212 10^3/uL (150-450); RED BLOOD COUNT 4.05 10^6/uL (4.30-6.10); WHITE BLOOD COUNT 4.8 10^3/uL (4.0-10.0)
[2022-02-13 15:18] LABS: ALBUMIN 3.6 GM/DL (3.2-5.2); ALKALINE PHOSPHATASE 80 U/L (45-117); ALT/SGPT 24 U/L (12-78); AST/SGOT 15 U/L (7-37); BILIRUBIN,TOTAL 0.5 MG/DL (0.2-1.0); BLOOD UREA NITROGEN 22 MG/DL (7-18); CALCIUM LEVEL 9.4 MG/DL (8.8-10.2); CARBON DIOXIDE LEVEL 32 MEQ/L (21-32); CHLORIDE LEVEL 102 MEQ/L (98-107); CREATININE FOR GFR 0.99 MG/DL (0.70-1.30); GLOMERULAR FILTRATION RATE > 60.0 (>49); GLUCOSE, FASTING 92 MG/DL (70-100); POTASSIUM SERUM 3.9 MEQ/L (3.5-5.1); SODIUM LEVEL 137 MEQ/L (136-145); TOTAL PROTEIN 6.8 GM/DL (6.4-8.2)
[2022-02-27] MEDS: DENOSUMAB 120 MG/1.7 ML VIAL SC SCH (13:40)
[2022-03-26 14:25] VITALS: BP 136/85; O2SAT 100
[2022-03-26 15:14] LABS: BASO % 0.6 % (0.0-1.0); EOS # 0.1 10^3/uL (0.0-0.5); EOS % 1.2 % (0.0-3.0); HEMATOCRIT 32.6 % (42.0-52.0); HEMOGLOBIN 11.1 g/dl (13.5-17.5); LYMPH # 1.1 10^3/uL (1.5-5.0); LYMPH % 20.9 % (24.0-44.0); MEAN CORPUSCULAR HEMOGLOBIN 29.4 pg (27.0-33.0); MEAN CORPUSCULAR VOLUME 86.5 fl (80.0-96.0); MONO # 0.5 10^3/uL (0.0-0.8); MONO % 10.7 % (2.0-8.0); NEUTROPHILS # 3.3 10^3/uL (1.5-8.5); NEUTROPHILS % 66.2 % (36.0-66.0); PLATELET COUNT, AUTOMATED 213 10^3/uL (150-450); RED BLOOD COUNT 3.77 10^6/uL (4.30-6.10)
[2022-03-26 15:51] LABS: ALBUMIN 3.6 GM/DL (3.2-5.2); ALKALINE PHOSPHATASE 80 U/L (45-117); ALT/SGPT 25 U/L (12-78); AST/SGOT 16 U/L (7-37); BILIRUBIN,TOTAL 0.4 MG/DL (0.2-1.0); BLOOD UREA NITROGEN 23 MG/DL (7-18); CARBON DIOXIDE LEVEL 29 MEQ/L (21-32); CHLORIDE LEVEL 106 MEQ/L (98-107); CREATININE FOR GFR 0.97 MG/DL (0.70-1.30); GLOMERULAR FILTRATION RATE > 60.0 (>49); GLUCOSE, FASTING 91 MG/DL (70-100); MAGNESIUM LEVEL 2.5 MG/DL (1.8-2.4); POTASSIUM SERUM 3.6 MEQ/L (3.5-5.1); SODIUM LEVEL 137 MEQ/L (136-145); TOTAL PROTEIN 7.3 GM/DL (6.4-8.2)
[2022-04-16 14:03] VITALS: BP 120/72; O2SAT 98
[2022-04-16 14:14] LABS: BASO % 0.6 % (0.0-1.0); EOS % 0.8 % (0.0-3.0); HEMATOCRIT 31.2 % (42.0-52.0); HEMOGLOBIN 10.5 g/dl (13.5-17.5); LYMPH % 19.7 % (24.0-44.0); MEAN CORPUSCULAR HEMOGLOBIN 29.1 pg (27.0-33.0); MEAN CORPUSCULAR HGB CONC 33.7 g/dl (32.0-36.5); MEAN CORPUSCULAR VOLUME 86.4 fl (80.0-96.0); MONO # 0.5 10^3/uL (0.0-0.8); MONO % 10.3 % (2.0-8.0); NEUTROPHILS # 3.6 10^3/uL (1.5-8.5); NEUTROPHILS % 68.2 % (36.0-66.0); PLATELET COUNT, AUTOMATED 229 10^3/uL (150-450); RED BLOOD COUNT 3.61 10^6/uL (4.30-6.10); WHITE BLOOD COUNT 5.2 10^3/uL (4.0-10.0)
[2022-04-16 14:47] LABS: ALBUMIN 3.5 GM/DL (3.2-5.2); ALKALINE PHOSPHATASE 75 U/L (45-117); ALT/SGPT 20 U/L (12-78); AST/SGOT 17 U/L (7-37); BILIRUBIN,TOTAL 0.3 MG/DL (0.2-1.0); BLOOD UREA NITROGEN 14 MG/DL (7-18); CALCIUM LEVEL 9.6 MG/DL (8.8-10.2); CARBON DIOXIDE LEVEL 29 MEQ/L (21-32); CHLORIDE LEVEL 105 MEQ/L (98-107); CREATININE FOR GFR 0.88 MG/DL (0.70-1.30); GLOMERULAR FILTRATION RATE > 60.0 (>49); GLUCOSE, FASTING 99 MG/DL (70-100); MAGNESIUM LEVEL 2.3 MG/DL (1.8-2.4); POTASSIUM SERUM 3.8 MEQ/L (3.5-5.1); SODIUM LEVEL 139 MEQ/L (136-145); TOTAL PROTEIN 6.6 GM/DL (6.4-8.2)
[2022-05-22 12:09] LABS: ALBUMIN 3.6 GM/DL (3.2-5.2); ALKALINE PHOSPHATASE 85 U/L (45-117); ALT/SGPT 20 U/L (12-78); AST/SGOT 10 U/L (7-37); BILIRUBIN,TOTAL 0.4 MG/DL (0.2-1.0); BLOOD UREA NITROGEN 13 MG/DL (7-18); CALCIUM LEVEL 9.3 MG/DL (8.8-10.2); CARBON DIOXIDE LEVEL 29 MEQ/L (21-32); CHLORIDE LEVEL 106 MEQ/L (98-107); CREATININE FOR GFR 0.84 MG/DL (0.70-1.30); GLOMERULAR FILTRATION RATE > 60.0 (>49); GLUCOSE, FASTING 115 MG/DL (70-100); POTASSIUM SERUM 3.7 MEQ/L (3.5-5.1); SODIUM LEVEL 139 MEQ/L (136-145); TOTAL PROTEIN 7.3 GM/DL (6.4-8.2)
[2022-05-22] MEDS: DENOSUMAB 120 MG/1.7 ML VIAL SC SCH (12:33)
[2022-06-24 08:41] LABS: BASO % 0.7 % (0.0-1.0); EOS # 0.1 10^3/uL (0.0-0.5); EOS % 2.4 % (0.0-3.0); HEMATOCRIT 32.9 % (42.0-52.0); HEMOGLOBIN 10.9 g/dl (13.5-17.5); LYMPH % 22.4 % (24.0-44.0); MEAN CORPUSCULAR HGB CONC 33.1 g/dl (32.0-36.5); MEAN CORPUSCULAR VOLUME 87.5 fl (80.0-96.0); MONO # 0.4 10^3/uL (0.0-0.8); MONO % 8.7 % (2.0-8.0); NEUTROPHILS # 2.8 10^3/uL (1.5-8.5); NEUTROPHILS % 65.1 % (36.0-66.0); PLATELET COUNT, AUTOMATED 242 10^3/uL (150-450); RED BLOOD COUNT 3.76 10^6/uL (4.30-6.10); WHITE BLOOD COUNT 4.3 10^3/uL (4.0-10.0)
[2022-06-24 09:19] LABS: ALBUMIN 3.4 GM/DL (3.2-5.2); ALKALINE PHOSPHATASE 85 U/L (45-117); ALT/SGPT 22 U/L (12-78); AST/SGOT 15 U/L (7-37); BILIRUBIN,TOTAL 0.4 MG/DL (0.2-1.0); BLOOD UREA NITROGEN 14 MG/DL (7-18); CALCIUM LEVEL 9.1 MG/DL (8.8-10.2); CARBON DIOXIDE LEVEL 29 MEQ/L (21-32); CHLORIDE LEVEL 103 MEQ/L (98-107); CREATININE FOR GFR 0.89 MG/DL (0.70-1.30); GLOMERULAR FILTRATION RATE > 60.0 (>49); GLUCOSE, FASTING 101 MG/DL (70-100); POTASSIUM SERUM 3.5 MEQ/L (3.5-5.1); SODIUM LEVEL 137 MEQ/L (136-145); TOTAL PROTEIN 7.1 GM/DL (6.4-8.2)
[2022-06-24 14:34] VITALS: BP 128/78; O2SAT 98
[2022-07-17 10:12] VITALS: BP 149/82; O2SAT 98
[2022-08-19 13:11] VITALS: BP 130/75; O2SAT 98
[2022-08-19] MEDS: DENOSUMAB 120 MG/1.7 ML VIAL SC SCH (14:53)
[2022-09-19 13:19] VITALS: BP 121/67; O2SAT 100
[2022-10-24 13:17] VITALS: BP 124/71; O2SAT 98
[2022-12-26 09:08] VITALS: BP 112/70; O2SAT 98
[2022-12-26] MEDS: DENOSUMAB 120 MG/1.7 ML VIAL SC SCH (09:53)
[2023-03-20 09:01] VITALS: BP 115/67; O2SAT 99
[2023-03-20] MEDS: DENOSUMAB 120 MG/1.7 ML VIAL SC SCH (09:52)
[2023-06-20 08:23] VITALS: BP 107/60; O2SAT 98
[2023-06-20] MEDS: DENOSUMAB 120 MG/1.7 ML VIAL SC SCH (09:41)
[2023-09-23 08:44] VITALS: BP 141/78
[2023-09-23 08:47] LABS: BASO % 0.9 % (0.0-1.0); EOS # 0.1 10^3/uL (0.0-0.5); EOS % 1.4 % (0.0-3.0); HEMATOCRIT 29.2 % (42.0-52.0); HEMOGLOBIN 9.7 g/dl (13.5-17.5); LYMPH # 1.3 10^3/uL (1.5-5.0); LYMPH % 29.7 % (24.0-44.0); MEAN CORPUSCULAR HEMOGLOBIN 28.4 pg (27.0-33.0); MEAN CORPUSCULAR HGB CONC 33.2 g/dl (32.0-36.5); MEAN CORPUSCULAR VOLUME 85.6 fl (80.0-96.0); MONO # 0.4 10^3/uL (0.0-0.8); MONO % 8.4 % (2.0-8.0); NEUTROPHILS # 2.5 10^3/uL (1.5-8.5); NEUTROPHILS % 59.1 % (36.0-66.0); PLATELET COUNT, AUTOMATED 263 10^3/uL (150-450); RED BLOOD COUNT 3.41 10^6/uL (4.30-6.10); WHITE BLOOD COUNT 4.3 10^3/uL (4.0-10.0)
[2023-09-23 09:27] LABS: ALBUMIN 3.1 G/DL (3.2-5.2); ALKALINE PHOSPHATASE 119 U/L (46-116); ALT/SGPT < 9 U/L (7.0-40); AST/SGOT 14 U/L (<34); BILIRUBIN,TOTAL 0.3 MG/DL (0.3-1.2); BLOOD UREA NITROGEN 20 MG/DL (9-23); CALCIUM LEVEL 8.3 MG/DL (8.3-10.6); CARBON DIOXIDE LEVEL 26 MMOL/L (20-31); CHLORIDE LEVEL 104 MMOL/L (98-107); CREATININE FOR GFR 0.79 MG/DL (0.70-1.30); GLOMERULAR FILTRATION RATE > 60.0 (>49); GLUCOSE, FASTING 98 MG/DL (74-106); POTASSIUM SERUM 4.5 MMOL/L (3.5-5.1); SODIUM LEVEL 137 MMOL/L (136-145); TOTAL PROTEIN 6.3 G/DL (5.7-8.2)
[2023-09-23 09:47] LABS: PROSTATIC SPECIFIC AG MONITOR 125.56 NG/ML (< 4.00)
[2023-09-23] MEDS: KETOROLAC 60 MG/2 ML VIAL IM ONE (09:49)
[2023-09-23] MEDS: DENOSUMAB 120 MG/1.7 ML VIAL SC SCH (10:43)
[2023-11-06 13:48] VITALS: BP 116/64; O2SAT 99
[2024-09-16 14:58] VITALS: BP 124/72; O2SAT 92
[2024-09-16 16:34] LABS: PERCENT SATURATION 26.6 % (19.7-50.0)
[2024-09-16 16:36] LABS: FOLATE 8.1 NG/ML (>5.4)
[2024-09-16 16:37] LABS: FERRITIN 883.7 NG/ML (10.5-307.3)
[2024-09-29 10:23] LABS: BASO % 0.3 % (0.0-1.0); EOS # 0.1 10^3/uL (0.0-0.5); HEMOGLOBIN 7.3 g/dl (13.5-17.5); LYMPH # 0.3 10^3/uL (1.5-5.0); LYMPH % 10.9 % (24.0-44.0); MEAN CORPUSCULAR HEMOGLOBIN 31.2 pg (27.0-33.0); MEAN CORPUSCULAR HGB CONC 34.8 g/dl (32.0-36.5); MEAN CORPUSCULAR VOLUME 89.7 fl (80.0-96.0); MONO # 0.4 10^3/uL (0.0-0.8); MONO % 14.2 % (2.0-8.0); NEUTROPHILS # 2.2 10^3/uL (1.5-8.5); NEUTROPHILS % 72.3 % (36.0-66.0); RED BLOOD COUNT 2.34 10^6/uL (4.30-6.10)
[2024-09-29 10:45] LABS: PLATELET COUNT, AUTOMATED 67 10^3/uL (150-450)
[2024-09-29 10:54] LABS: ALBUMIN 3.3 G/DL (3.2-5.2); ALKALINE PHOSPHATASE 94 U/L (40-129); ALT/SGPT < 9 U/L (7.0-40); AST/SGOT 13 U/L (<34); BILIRUBIN,TOTAL 0.6 MG/DL (0.3-1.2); BLOOD UREA NITROGEN 15 MG/DL (9-23); CALCIUM LEVEL 9.7 MG/DL (8.3-10.6); CARBON DIOXIDE LEVEL 28 MMOL/L (20-31); CHLORIDE LEVEL 98 MMOL/L (98-107); CREATININE FOR GFR 0.96 MG/DL (0.70-1.30); GLOMERULAR FILTRATION RATE > 60.0 (>49); GLUCOSE, FASTING 98 MG/DL (74-106); POTASSIUM SERUM 3.8 MMOL/L (3.5-5.1); SODIUM LEVEL 132 MMOL/L (136-145); TOTAL PROTEIN 6.5 G/DL (5.7-8.2)
[2024-09-30 08:54] VITALS: BP 139/80; O2SAT 98
[2024-09-30] MEDS: DENOSUMAB 120 MG/1.7 ML VIAL SC SCH (09:46)
[2024-09-30 10:42] LABS: ALBUMIN 3.5 G/DL (3.2-5.2); ALKALINE PHOSPHATASE 101 U/L (40-129); ALT/SGPT < 9 U/L (7.0-40); AST/SGOT 14 U/L (<34); BILIRUBIN,TOTAL 0.5 MG/DL (0.3-1.2); BLOOD UREA NITROGEN 14 MG/DL (9-23); CARBON DIOXIDE LEVEL 27 MMOL/L (20-31); CHLORIDE LEVEL 94 MMOL/L (98-107); CREATININE FOR GFR 0.91 MG/DL (0.70-1.30); GLOMERULAR FILTRATION RATE > 60.0 (>49); GLUCOSE, FASTING 102 MG/DL (74-106); POTASSIUM SERUM 3.6 MMOL/L (3.5-5.1); SODIUM LEVEL 130 MMOL/L (136-145); TOTAL PROTEIN 6.9 G/DL (5.7-8.2)
[2024-09-30 10:43] LABS: INR 0.98; PARTIAL THROMBOPLASTIN TIME 31.6 SECONDS (24.8-34.2); PROTHROMBIN TIME 13.3 SECONDS (12.5-14.5)
[2024-09-30 12:20] LABS: BASO % 0.7 % (0.0-1.0); EOS # 0.1 10^3/uL (0.0-0.5); EOS % 2.1 % (0.0-3.0); HEMATOCRIT 22.1 % (42.0-52.0); HEMOGLOBIN 7.7 g/dl (13.5-17.5); LYMPH # 0.4 10^3/uL (1.5-5.0); LYMPH % 12.5 % (24.0-44.0); MEAN CORPUSCULAR HEMOGLOBIN 31.6 pg (27.0-33.0); MEAN CORPUSCULAR HGB CONC 34.8 g/dl (32.0-36.5); MEAN CORPUSCULAR VOLUME 90.6 fl (80.0-96.0); MONO # 0.4 10^3/uL (0.0-0.8); MONO % 14.2 % (2.0-8.0); NEUTROPHILS % 70.1 % (36.0-66.0); RED BLOOD COUNT 2.44 10^6/uL (4.30-6.10); WHITE BLOOD COUNT 2.8 10^3/uL (4.0-10.0)
[2024-09-30 13:48] LABS: PLATELET COUNT, AUTOMATED 76 10^3/uL (150-450)
[2024-10-01] VITALS (8 sets, daily range): BP systolic 111–139; BP diastolic 61–79; TEMP 96.9–98.9; O2SAT 97–100
[2024-10-01] MEDS: NS IV PRN (08:57)
[2024-10-01] MEDS: diphenhydrAMINE (25MG CAP) 25MG PO X 1 PO ONE (08:57)
[2024-10-01] MEDS: ACETAMINOPHEN TAB 650MG PO X 1 PO ONE (08:57)
[2024-10-01] MEDS: [UNRECOGNIZED DRUG - OTHER] IV PRN (08:57)
[2024-10-05 08:42] LABS: BASO % 0.8 % (0.0-1.0); EOS # 0.1 10^3/uL (0.0-0.5); EOS % 3.8 % (0.0-3.0); HEMATOCRIT 28.9 % (42.0-52.0); HEMOGLOBIN 10.2 g/dl (13.5-17.5); LYMPH # 0.5 10^3/uL (1.5-5.0); LYMPH % 17.4 % (24.0-44.0); MEAN CORPUSCULAR HEMOGLOBIN 31.4 pg (27.0-33.0); MEAN CORPUSCULAR HGB CONC 35.3 g/dl (32.0-36.5); MEAN CORPUSCULAR VOLUME 88.9 fl (80.0-96.0); MONO # 0.4 10^3/uL (0.0-0.8); MONO % 15.9 % (2.0-8.0); NEUTROPHILS # 1.6 10^3/uL (1.5-8.5); NEUTROPHILS % 61.7 % (36.0-66.0); RED BLOOD COUNT 3.25 10^6/uL (4.30-6.10); WHITE BLOOD COUNT 2.6 10^3/uL (4.0-10.0)
[2024-10-05 08:53] LABS: PLATELET COUNT, AUTOMATED 81 10^3/uL (150-450)
[2024-10-12 09:35] LABS: BASO % 0.7 % (0.0-1.0); EOS # 0.1 10^3/uL (0.0-0.5); EOS % 4.7 % (0.0-3.0); HEMATOCRIT 24.6 % (42.0-52.0); HEMOGLOBIN 8.6 g/dl (13.5-17.5); LYMPH # 0.4 10^3/uL (1.5-5.0); LYMPH % 12.1 % (24.0-44.0); MEAN CORPUSCULAR HEMOGLOBIN 31.2 pg (27.0-33.0); MEAN CORPUSCULAR VOLUME 89.1 fl (80.0-96.0); MONO # 0.4 10^3/uL (0.0-0.8); MONO % 13.1 % (2.0-8.0); NEUTROPHILS # 2.1 10^3/uL (1.5-8.5); NEUTROPHILS % 69.1 % (36.0-66.0); RED BLOOD COUNT 2.76 10^6/uL (4.30-6.10)
[2024-10-12 09:37] LABS: PLATELET COUNT, AUTOMATED 77 10^3/uL (150-450)
[2024-10-19 09:34] LABS: BASO % 0.3 % (0.0-1.0); EOS # 0.2 10^3/uL (0.0-0.5); EOS % 5.2 % (0.0-3.0); HEMATOCRIT 21.6 % (42.0-52.0); HEMOGLOBIN 7.5 g/dl (13.5-17.5); LYMPH # 0.4 10^3/uL (1.5-5.0); LYMPH % 12.4 % (24.0-44.0); MEAN CORPUSCULAR HEMOGLOBIN 31.4 pg (27.0-33.0); MEAN CORPUSCULAR HGB CONC 34.7 g/dl (32.0-36.5); MEAN CORPUSCULAR VOLUME 90.4 fl (80.0-96.0); MONO # 0.4 10^3/uL (0.0-0.8); MONO % 14.1 % (2.0-8.0); NEUTROPHILS % 67.3 % (36.0-66.0); RED BLOOD COUNT 2.39 10^6/uL (4.30-6.10); WHITE BLOOD COUNT 2.9 10^3/uL (4.0-10.0)
[2024-10-19 09:49] LABS: PLATELET COUNT, AUTOMATED 79 10^3/uL (150-450)
[2024-10-27 10:16] LABS: BASO % 0.2 % (0.0-1.0); EOS # 0.1 10^3/uL (0.0-0.5); EOS % 1.9 % (0.0-3.0); HEMATOCRIT 22.2 % (42.0-52.0); HEMOGLOBIN 7.6 g/dl (13.5-17.5); LYMPH # 0.5 10^3/uL (1.5-5.0); LYMPH % 10.7 % (24.0-44.0); MEAN CORPUSCULAR HGB CONC 34.2 g/dl (32.0-36.5); MEAN CORPUSCULAR VOLUME 90.6 fl (80.0-96.0); MONO # 0.5 10^3/uL (0.0-0.8); MONO % 12.6 % (2.0-8.0); NEUTROPHILS # 3.1 10^3/uL (1.5-8.5); NEUTROPHILS % 74.1 % (36.0-66.0); RED BLOOD COUNT 2.45 10^6/uL (4.30-6.10); WHITE BLOOD COUNT 4.2 10^3/uL (4.0-10.0)
[2024-10-27 10:18] LABS: PLATELET COUNT, AUTOMATED 97 10^3/uL (150-450)
[2024-10-28 11:16] VITALS: BP 140/88; O2SAT 94
[2024-10-28 11:58] LABS: ALBUMIN 3.2 G/DL (3.2-5.2); ALKALINE PHOSPHATASE 100 U/L (40-129); ALT/SGPT < 9 U/L (7.0-40); AST/SGOT 17 U/L (<34); BILIRUBIN,TOTAL 0.5 MG/DL (0.3-1.2); BLOOD UREA NITROGEN 20 MG/DL (9-23); CALCIUM LEVEL 9.1 MG/DL (8.3-10.6); CARBON DIOXIDE LEVEL 25 MMOL/L (20-31); CHLORIDE LEVEL 95 MMOL/L (98-107); CREATININE FOR GFR 0.97 MG/DL (0.70-1.30); GLOMERULAR FILTRATION RATE > 60.0 (>49); GLUCOSE, FASTING 118 MG/DL (74-106); SODIUM LEVEL 129 MMOL/L (136-145); TOTAL PROTEIN 7.1 G/DL (5.7-8.2)
[2024-10-28 12:13] LABS: PROSTATIC SPECIFIC AG MONITOR 111.06 NG/ML (< 4.00)
[2024-10-28] MEDS: DENOSUMAB 120 MG/1.7 ML VIAL SC SCH (12:20)
[2024-11-02 09:27] LABS: BASO % 0.7 % (0.0-1.0); EOS # 0.1 10^3/uL (0.0-0.5); EOS % 2.3 % (0.0-3.0); LYMPH # 0.3 10^3/uL (1.5-5.0); LYMPH % 8.2 % (24.0-44.0); MEAN CORPUSCULAR HGB CONC 34.5 g/dl (32.0-36.5); MONO # 0.3 10^3/uL (0.0-0.8); MONO % 10.8 % (2.0-8.0); NEUTROPHILS # 2.4 10^3/uL (1.5-8.5); NEUTROPHILS % 77.3 % (36.0-66.0); PLATELET COUNT, AUTOMATED 114 10^3/uL (150-450); RED BLOOD COUNT 2.29 10^6/uL (4.30-6.10); WHITE BLOOD COUNT 3.1 10^3/uL (4.0-10.0)
[2024-11-02 09:39] LABS: HEMATOCRIT 20.6 % (42.0-52.0)
[2024-11-02 09:41] LABS: HEMOGLOBIN 7.1 g/dl (13.5-17.5)
[2024-11-02 10:08] LABS: ALBUMIN 2.9 G/DL (3.2-5.2); ALKALINE PHOSPHATASE 107 U/L (40-129); ALT/SGPT 16 U/L (7.0-40); AST/SGOT 21 U/L (<34); BILIRUBIN,TOTAL 0.4 MG/DL (0.3-1.2); BLOOD UREA NITROGEN 24 MG/DL (9-23); CALCIUM LEVEL 8.6 MG/DL (8.3-10.6); CARBON DIOXIDE LEVEL 24 MMOL/L (20-31); CHLORIDE LEVEL 98 MMOL/L (98-107); CREATININE FOR GFR 0.94 MG/DL (0.70-1.30); GLOMERULAR FILTRATION RATE > 60.0 (>49); GLUCOSE, FASTING 120 MG/DL (74-106); POTASSIUM SERUM 4.4 MMOL/L (3.5-5.1); SODIUM LEVEL 130 MMOL/L (136-145); TOTAL PROTEIN 6.6 G/DL (5.7-8.2)
[2024-11-09 09:50] LABS: BASO % 0.6 % (0.0-1.0); EOS % 0.8 % (0.0-3.0); LYMPH # 0.4 10^3/uL (1.5-5.0); LYMPH % 10.3 % (24.0-44.0); MEAN CORPUSCULAR HEMOGLOBIN 30.8 pg (27.0-33.0); MEAN CORPUSCULAR HGB CONC 33.2 g/dl (32.0-36.5); MEAN CORPUSCULAR VOLUME 92.9 fl (80.0-96.0); MONO # 0.4 10^3/uL (0.0-0.8); MONO % 10.9 % (2.0-8.0); NEUTROPHILS # 2.8 10^3/uL (1.5-8.5); NEUTROPHILS % 76.8 % (36.0-66.0); PLATELET COUNT, AUTOMATED 104 10^3/uL (150-450); RED BLOOD COUNT 2.24 10^6/uL (4.30-6.10); WHITE BLOOD COUNT 3.6 10^3/uL (4.0-10.0)
[2024-11-09 10:05] LABS: HEMATOCRIT 20.8 % (42.0-52.0)
[2024-11-09 10:08] LABS: HEMOGLOBIN 6.9 g/dl (13.5-17.5)
[2024-11-09 10:14] LABS: ALBUMIN 3.2 G/DL (3.2-5.2); ALKALINE PHOSPHATASE 120 U/L (40-129); ALT/SGPT 15 U/L (7.0-40); AST/SGOT 25 U/L (<34); BILIRUBIN,TOTAL 0.4 MG/DL (0.3-1.2); BLOOD UREA NITROGEN 25 MG/DL (9-23); CALCIUM LEVEL 8.8 MG/DL (8.3-10.6); CARBON DIOXIDE LEVEL 24 MMOL/L (20-31); CHLORIDE LEVEL 98 MMOL/L (98-107); CREATININE FOR GFR 0.94 MG/DL (0.70-1.30); GLOMERULAR FILTRATION RATE > 60.0 (>49); GLUCOSE, FASTING 115 MG/DL (74-106); POTASSIUM SERUM 4.3 MMOL/L (3.5-5.1); SODIUM LEVEL 132 MMOL/L (136-145); TOTAL PROTEIN 6.7 G/DL (5.7-8.2)
[2024-11-11] MEDS: ACETAMINOPHEN TAB 650MG PO X 1 PO ONE (07:55)
[2024-11-11] MEDS: diphenhydrAMINE (25MG CAP) 25MG PO X 1 PO ONE (07:55)
[2024-11-12 07:55] VITALS: BP 108/59; O2SAT 97
[2024-11-12] MEDS: ACETAMINOPHEN TAB 650MG PO X 1 PO ONE (08:15)
[2024-11-12] MEDS: diphenhydrAMINE (25MG CAP) 25MG PO X 1 PO ONE (08:19)
[2024-11-12] MEDS: [UNRECOGNIZED DRUG - OTHER] IV PRN (08:21)
[2024-11-12] MEDS: NS IV PRN (08:21)
[2024-11-12 08:30] VITALS: BP 95/65; TEMP 98; O2SAT 98
[2024-11-12 08:53] VITALS: BP 99/60; TEMP 98.2; O2SAT 97
[2024-11-12 09:38] VITALS: BP 100/60; TEMP 97.9; O2SAT 99
[2024-11-12 10:34] VITALS: BP 112/68; TEMP 98.7; O2SAT 100
[2024-11-16 09:36] LABS: BASO % 0.6 % (0.0-1.0); EOS # 0.1 10^3/uL (0.0-0.5); EOS % 2.1 % (0.0-3.0); HEMATOCRIT 21.1 % (42.0-52.0); HEMOGLOBIN 7.1 g/dl (13.5-17.5); LYMPH # 0.5 10^3/uL (1.5-5.0); LYMPH % 16.2 % (24.0-44.0); MEAN CORPUSCULAR HEMOGLOBIN 31.7 pg (27.0-33.0); MEAN CORPUSCULAR HGB CONC 33.6 g/dl (32.0-36.5); MEAN CORPUSCULAR VOLUME 94.2 fl (80.0-96.0); MONO # 0.4 10^3/uL (0.0-0.8); MONO % 12.9 % (2.0-8.0); NEUTROPHILS # 2.3 10^3/uL (1.5-8.5); NEUTROPHILS % 67.9 % (36.0-66.0); RED BLOOD COUNT 2.24 10^6/uL (4.30-6.10); WHITE BLOOD COUNT 3.3 10^3/uL (4.0-10.0)
[2024-11-16 09:40] LABS: PLATELET COUNT, AUTOMATED 77 10^3/uL (150-450)
[2024-11-16 10:19] LABS: ALBUMIN 2.9 G/DL (3.2-5.2); ALKALINE PHOSPHATASE 100 U/L (40-129); ALT/SGPT 13 U/L (7.0-40); AST/SGOT 25 U/L (<34); BILIRUBIN,TOTAL 0.3 MG/DL (0.3-1.2); BLOOD UREA NITROGEN 25 MG/DL (9-23); CALCIUM LEVEL 8.1 MG/DL (8.3-10.6); CARBON DIOXIDE LEVEL 24 MMOL/L (20-31); CHLORIDE LEVEL 98 MMOL/L (98-107); CREATININE FOR GFR 1.01 MG/DL (0.70-1.30); GLOMERULAR FILTRATION RATE > 60.0 (>49); GLUCOSE, FASTING 94 MG/DL (74-106); SODIUM LEVEL 133 MMOL/L (136-145); TOTAL PROTEIN 6.4 G/DL (5.7-8.2)
[2024-11-24 08:50] VITALS: BP 143/71; O2SAT 98
[2024-11-24] MEDS: ACETAMINOPHEN TAB 650MG PO X 1 PO ONE (09:02)
[2024-11-24] MEDS: diphenhydrAMINE (25MG CAP) 25MG PO X 1 PO ONE (09:02)
[2024-11-24 09:49] VITALS: BP 119/66; TEMP 96.9; O2SAT 100
[2024-11-24 10:05] VITALS: BP 103/61; TEMP 96.2; O2SAT 100
[2024-11-24 10:55] VITALS: BP 128/71; TEMP 96.3; O2SAT 99
[2024-11-24 12:18] VITALS: BP 128/78; TEMP 98.2; O2SAT 99
[2024-11-25 13:38] LABS: BASO % 0.5 % (0.0-1.0); EOS # 0.1 10^3/uL (0.0-0.5); EOS % 1.5 % (0.0-3.0); HEMATOCRIT 25.5 % (42.0-52.0); HEMOGLOBIN 8.8 g/dl (13.5-17.5); LYMPH # 0.6 10^3/uL (1.5-5.0); MEAN CORPUSCULAR HEMOGLOBIN 31.2 pg (27.0-33.0); MEAN CORPUSCULAR HGB CONC 34.5 g/dl (32.0-36.5); MEAN CORPUSCULAR VOLUME 90.4 fl (80.0-96.0); MONO # 0.4 10^3/uL (0.0-0.8); MONO % 8.9 % (2.0-8.0); NEUTROPHILS # 2.9 10^3/uL (1.5-8.5); NEUTROPHILS % 74.6 % (36.0-66.0); PLATELET COUNT, AUTOMATED 100 10^3/uL (150-450); RED BLOOD COUNT 2.82 10^6/uL (4.30-6.10); WHITE BLOOD COUNT 3.9 10^3/uL (4.0-10.0)
[2024-11-25 14:12] LABS: ALBUMIN 3.2 G/DL (3.2-5.2); ALKALINE PHOSPHATASE 93 U/L (40-129); ALT/SGPT 14 U/L (7.0-40); AST/SGOT 23 U/L (<34); BILIRUBIN,TOTAL 0.4 MG/DL (0.3-1.2); BLOOD UREA NITROGEN 16 MG/DL (9-23); CALCIUM LEVEL 8.6 MG/DL (8.3-10.6); CARBON DIOXIDE LEVEL 25 MMOL/L (20-31); CHLORIDE LEVEL 107 MMOL/L (98-107); CREATININE FOR GFR 0.75 MG/DL (0.70-1.30); GLOMERULAR FILTRATION RATE > 60.0 (>49); GLUCOSE, FASTING 96 MG/DL (74-106); SODIUM LEVEL 135 MMOL/L (136-145); TOTAL PROTEIN 6.4 G/DL (5.7-8.2)
[2024-11-25] MEDS: DENOSUMAB 120 MG/1.7 ML VIAL SC SCH (14:46)
[2024-12-13] VITALS (9 sets, daily range): BP systolic 127–155; BP diastolic 72–85; TEMP 97.2–98.1; O2SAT 96–100
[2024-12-13 10:56] LABS: BASO % 0.6 % (0.0-1.0); EOS % 1.1 % (0.0-3.0); LYMPH # 0.5 10^3/uL (1.5-5.0); LYMPH % 12.7 % (24.0-44.0); MEAN CORPUSCULAR HEMOGLOBIN 31.2 pg (27.0-33.0); MEAN CORPUSCULAR VOLUME 94.6 fl (80.0-96.0); MONO # 0.3 10^3/uL (0.0-0.8); MONO % 8.6 % (2.0-8.0); NEUTROPHILS # 2.8 10^3/uL (1.5-8.5); NEUTROPHILS % 76.4 % (36.0-66.0); RED BLOOD COUNT 2.05 10^6/uL (4.30-6.10); WHITE BLOOD COUNT 3.6 10^3/uL (4.0-10.0)
[2024-12-13] MEDS: oxyCODONE 5MG TAB PO ONE (11:00)
[2024-12-13 11:04] LABS: HEMOGLOBIN 6.4 g/dl (13.5-17.5); PLATELET COUNT, AUTOMATED 95 10^3/uL (150-450)
[2024-12-13 11:05] LABS: HEMATOCRIT 19.4 % (42.0-52.0)
[2024-12-13 11:39] LABS: ALBUMIN 3.2 G/DL (3.2-5.2); ALKALINE PHOSPHATASE 89 U/L (40-129); ALT/SGPT 9 U/L (7.0-40); AST/SGOT 28 U/L (<34); BILIRUBIN,TOTAL 0.3 MG/DL (0.3-1.2); BLOOD UREA NITROGEN 17 MG/DL (9-23); CALCIUM LEVEL 8.7 MG/DL (8.3-10.6); CARBON DIOXIDE LEVEL 25 MMOL/L (20-31); CHLORIDE LEVEL 101 MMOL/L (98-107); CREATININE FOR GFR 0.81 MG/DL (0.70-1.30); GLOMERULAR FILTRATION RATE > 60.0 (>49); GLUCOSE, FASTING 121 MG/DL (74-106); SODIUM LEVEL 137 MMOL/L (136-145); TOTAL PROTEIN 6.3 G/DL (5.7-8.2)
[2024-12-13 11:52] LABS: PROSTATIC SPECIFIC AG MONITOR 161.77 NG/ML (< 4.00)
[2024-12-13] MEDS: ACETAMINOPHEN TAB 650MG PO X 1 PO ONE (11:53)
[2024-12-13] MEDS: diphenhydrAMINE (25MG CAP) 25MG PO X 1 PO ONE (11:54)
[2024-12-13] MEDS: NS IV PRN (11:55)
[2024-12-13] MEDS: [UNRECOGNIZED DRUG - OTHER] IV PRN (11:55)
[2024-12-13] MEDS: KETOROLAC TROMETHAMINE 10 MG TAB PO ONE (15:57)
[2025-01-12 10:16] LABS: BASO % 0.5 % (0.0-1.0); EOS # 0.1 10^3/uL (0.0-0.5); EOS % 1.6 % (0.0-3.0); HEMOGLOBIN 8.2 g/dl (13.5-17.5); LYMPH # 0.4 10^3/uL (1.5-5.0); LYMPH % 9.4 % (24.0-44.0); MEAN CORPUSCULAR HEMOGLOBIN 30.4 pg (27.0-33.0); MEAN CORPUSCULAR HGB CONC 32.8 g/dl (32.0-36.5); MEAN CORPUSCULAR VOLUME 92.6 fl (80.0-96.0); MONO # 0.3 10^3/uL (0.0-0.8); NEUTROPHILS # 3.6 10^3/uL (1.5-8.5); NEUTROPHILS % 81.6 % (36.0-66.0); WHITE BLOOD COUNT 4.4 10^3/uL (4.0-10.0)
[2025-01-12 10:18] LABS: PLATELET COUNT, AUTOMATED 84 10^3/uL (150-450)
[2025-01-12 10:47] VITALS: BP 108/61; O2SAT 94
[2025-01-12 10:51] LABS: FOLATE 10.6 NG/ML (>5.4); VITAMIN B12 LEVEL 455 PG/ML (211-911)
[2025-01-12 11:16] LABS: ALKALINE PHOSPHATASE 116 U/L (40-129); ALT/SGPT 14 U/L (7.0-40); AST/SGOT 33 U/L (<34); BILIRUBIN,TOTAL 0.4 MG/DL (0.3-1.2); BLOOD UREA NITROGEN 22 MG/DL (9-23); CALCIUM LEVEL 8.8 MG/DL (8.3-10.6); CARBON DIOXIDE LEVEL 26 MMOL/L (20-31); CHLORIDE LEVEL 102 MMOL/L (98-107); CREATININE FOR GFR 1.06 MG/DL (0.70-1.30); GLOMERULAR FILTRATION RATE > 60.0 (>49); GLUCOSE, FASTING 116 MG/DL (74-106); POTASSIUM SERUM 4.2 MMOL/L (3.5-5.1); SODIUM LEVEL 133 MMOL/L (136-145)
[2025-01-12 12:08] LABS: PROSTATIC SPECIFIC AG MONITOR 269.49 NG/ML (< 4.00)
[~2025-01-17] VITALS: Ht 172.7 cm; Wt 80.6 kg
[~2025-01-17 10:17] MED LIST changes: +ACETAMINOPHEN TAB 650MG PO X 1 PO ONE; +DENOSUMAB 120 MG/1.7 ML VIAL As Ordered ONE; +DENOSUMAB 120 MG/1.7 ML VIAL SC ONE; -EQL50TAB2 PO; +NS IV PRN; +PERCOCET 5MG/325MG TAB PO ONE; +VITA1TAB82 PO; +[UNRECOGNIZED DRUG - OTHER] IV PRN; +diphenhydrAMINE (25MG CAP) 25MG PO X 1 PO ONE
[2025-01-17 11:13] VITALS: BP 110/55; O2SAT 97
[2025-01-17] MEDS: diphenhydrAMINE HCL 25 MG CAP PO SCH (11:28)
[2025-01-17] MEDS: ACETAMINOPHEN 325 MG TAB PO SCH (11:28)
[2025-01-17] MEDS: IRON SUCROSE 300 MG in NS 250 ML IV SCH (11:38)
[2025-01-17 13:18] VITALS: BP 119/62; O2SAT 97
[2025-01-20] MEDS ORDERED: OXYC20TA40 PO (13:19)
[2025-01-24] MEDS ORDERED: diphenhydrAMINE HCL 25 MG CAP PO SCH
[2025-01-24] MEDS ORDERED: ACETAMINOPHEN 325 MG TAB PO SCH
[2025-01-24] MEDS ORDERED: SODIUM CHLORIDE 0.9% INJ 10 ML SYR IV PRN (08:00)
[2025-01-26] MEDS ORDERED: DEXA4TA PO (13:58)
[2025-01-29] MEDS ORDERED: OXYC20TA64 PO (18:10)
[2025-01-29] MEDS ORDERED: OXYC10TA12 PO (18:10)
[2025-01-29] MEDS ORDERED: DEXA4TA PO (18:10)
[2025-01-31] MEDS ORDERED: ACETAMINOPHEN 325 MG TAB PO SCH
[2025-01-31] MEDS ORDERED: diphenhydrAMINE HCL 25 MG CAP PO SCH
[2025-02-07] MEDS ORDERED: ACETAMINOPHEN 325 MG TAB PO SCH
[2025-02-07] MEDS ORDERED: diphenhydrAMINE HCL 25 MG CAP PO SCH
[2025-02-10] MEDS ORDERED: BISA10SU PR (09:06)
[2025-02-10] MEDS ORDERED: ONDA-282 PO (09:06)
[2025-02-10] MEDS ORDERED: DOCU8.6T PO (09:06)
[2025-02-10] MEDS ORDERED: DEXA4TA PO (09:06)
[2025-02-10] MEDS ORDERED: CYCL5TAB4 PO (09:06)
[2025-02-10] MEDS ORDERED: MIRA33506 PO (09:06)
[2025-02-10] MEDS ORDERED: MORP1SOL5 PO (09:12)
[2025-02-10] MEDS ORDERED: ATIV1TAB10 PO (09:12)
[2025-02-10] MEDS ORDERED: HYOS125TA PO (09:12)
[2025-02-10] MEDS ORDERED: MORP30TASA PO (09:12)
[2025-02-10] MEDS ORDERED: ATRO2DRO4 SL (09:15)
[2025-02-14] MEDS ORDERED: diphenhydrAMINE HCL 25 MG CAP PO SCH
[2025-02-14] MEDS ORDERED: ACETAMINOPHEN 325 MG TAB PO SCH
[2025-02-21] MEDS ORDERED: diphenhydrAMINE HCL 25 MG CAP PO SCH
[2025-02-21] MEDS ORDERED: ACETAMINOPHEN 325 MG TAB PO SCH
[2025-02-28] MEDS ORDERED: diphenhydrAMINE HCL 25 MG CAP PO SCH
[2025-02-28] MEDS ORDERED: ACETAMINOPHEN 325 MG TAB PO SCH
== END 2025-03-15 | disposition expired ==
LOC: M ONCM 03-15
PROVIDERS: ATTEND Specialist
DX: C61 Malignant neoplasm of prostate (principal); C79.51 Secondary malignant neoplasm of bone; D61.818 Other pancytopenia; D75.89 Other specified diseases of blood and blood-forming organs; M25.559 Pain in unspecified hip; Z79.899 Other long term (current) drug therapy; Z87.891 Personal history of nicotine dependence; G89.3 Neoplasm related pain (acute) (chronic); K59.09 Other constipation; R53.1 Weakness; R68.2 Dry mouth, unspecified; M54.9 Dorsalgia, unspecified; M54.2 Cervicalgia; M25.511 Pain in right shoulder
CPT/HCPCS: 36415; 36430; 70355; 77790; 79101; 80048; 80053; 81001; 82607; 82728; 82746; 83550; 83615; 83735; 84153; 84238; 84403; 85025; 85027; 85046; 85049; 85055; 85610; 85730; 86316; 86850; 86900; 86901; 86920; 88300; 96360; 96361; 96365; 96366; 96372; A9606; G0103; G0463; J0897; J1756; J1885; P9016

== ENCOUNTER 2025-01-19 10:04 | Outpatient (RCR) | payer MEDICARE, MEDICAID ==
[~2025-01-19 10:04] MED LIST changes: -ACETAMINOPHEN TAB 650MG PO X 1 PO ONE; -DENOSUMAB 120 MG/1.7 ML VIAL As Ordered ONE; -DENOSUMAB 120 MG/1.7 ML VIAL SC ONE; +EQL50TAB2 PO; -NS IV PRN; -PERCOCET 5MG/325MG TAB PO ONE; -VITA1TAB82 PO; -[UNRECOGNIZED DRUG - OTHER] IV PRN; -diphenhydrAMINE (25MG CAP) 25MG PO X 1 PO ONE
[2025-01-20] MEDS ORDERED: OXYC20TA40 PO (13:19)
[2025-01-26] MEDS ORDERED: DEXA4TA PO (13:58)
[2025-01-29] MEDS ORDERED: OXYC10TA12 PO (18:10)
[2025-01-29] MEDS ORDERED: OXYC20TA64 PO (18:10)
[2025-01-29] MEDS ORDERED: DEXA4TA PO (18:10)
[2025-02-10] MEDS ORDERED: DEXA4TA PO (09:06)
[2025-02-10] MEDS ORDERED: MIRA33506 PO (09:06)
[2025-02-10] MEDS ORDERED: ONDA-282 PO (09:06)
[2025-02-10] MEDS ORDERED: DOCU8.6T PO (09:06)
[2025-02-10] MEDS ORDERED: CYCL5TAB4 PO (09:06)
[2025-02-10] MEDS ORDERED: BISA10SU PR (09:06)
[2025-02-10] MEDS ORDERED: MORP1SOL5 PO (09:12)
[2025-02-10] MEDS ORDERED: HYOS125TA PO (09:12)
[2025-02-10] MEDS ORDERED: MORP30TASA PO (09:12)
[2025-02-10] MEDS ORDERED: ATIV1TAB10 PO (09:12)
[2025-02-10] MEDS ORDERED: ATRO2DRO4 SL (09:15)
== END 2025-02-14 ==
LOC: M ONCR 10:04
PROVIDERS: ATTEND General Practice
DX: Z51.0 Encounter for antineoplastic radiation therapy (principal); C79.51 Secondary malignant neoplasm of bone

== ENCOUNTER → 2025-01-20 | Outpatient (CLI) | payer MEDICARE, MEDICAID ==
[~2025-01-20] VITALS: Ht 177.8 cm; Wt 78.8 kg
[2025-01-20 13:05] VITALS: BP 118/64; O2SAT 99
== END ==
LOC: M PAL 12:51
PROVIDERS: ATTEND Family Medicine
DX: Z51.5 Encounter for palliative care (principal); C61 Malignant neoplasm of prostate; C79.51 Secondary malignant neoplasm of bone; Z66 Do not resuscitate; Z79.891 Long term (current) use of opiate analgesic; Z92.3 Personal history of irradiation; Z79.899 Other long term (current) drug therapy

== ENCOUNTER 2025-01-29 13:04 | Inpatient (IN) | payer MEDICARE, MEDICAID ==
[2025-01-29] VITALS (9 sets, daily range): BP systolic 100–141; BP diastolic 55–73; TEMP 96.3–99.1; O2SAT 92–99
[~2025-01-29] VITALS: Ht 177.8 cm; Wt 78.5 kg
[~2025-01-29 13:04] MED LIST changes: +DEXA4TA PO
[2025-01-29] MEDS: ONDANSETRON 4MG 2ML VIAL IV ONE (14:31)
[2025-01-29] MEDS: MORPHINE 4 MG/ML 1ML VIAL IV PRN (14:31)
[2025-01-29 14:46] LABS: VENOUS HCO3 24.1 MMOL/L (23.0-27.0); VENOUS O2 SATURATION 70.5 % (60.0-80.0); VENOUS PARTIAL PRESSURE CO2 42.2 mmHg (38.0-50.0); VENOUS PARTIAL PRESSURE O2 38.5 mmHg (30.0-50.0); VENOUS PH 7.375 UNITS (7.330-7.430); VENOUS STANDARD HCO3 23.3 MMOL/L; VENOUS TOTAL CO2 25.4 MMOL/L (24.0-28.0)
[2025-01-29 14:55] LABS: EOS % 0.3 % (0.0-3.0); LYMPH # 0.1 10^3/uL (1.5-5.0); LYMPH % 3.5 % (24.0-44.0); MEAN CORPUSCULAR HEMOGLOBIN 31.6 pg (27.0-33.0); MEAN CORPUSCULAR HGB CONC 33.7 g/dl (32.0-36.5); MEAN CORPUSCULAR VOLUME 93.8 fl (80.0-96.0); MONO # 0.2 10^3/uL (0.0-0.8); MONO % 4.3 % (2.0-8.0); NEUTROPHILS # 3.4 10^3/uL (1.5-8.5); NEUTROPHILS % 91.4 % (36.0-66.0); RED BLOOD COUNT 1.93 10^6/uL (4.30-6.10); WHITE BLOOD COUNT 3.7 10^3/uL (4.0-10.0)
[2025-01-29 15:01] LABS: HEMOGLOBIN 6.1 g/dl (13.5-17.5); PLATELET COUNT, AUTOMATED 73 10^3/uL (150-450)
[2025-01-29 15:02] LABS: HEMATOCRIT 18.1 % (42.0-52.0)
[2025-01-29 15:07] LABS: ERYTHROCYTE SEDIMENTATION RATE 11 mm/hr (0-20)
[2025-01-29 15:15] LABS: CK-MB VALUE MASS 1.8 NG/ML (<3.6)
[2025-01-29 15:17] LABS: ALBUMIN 2.9 G/DL (3.2-5.2); ALKALINE PHOSPHATASE 124 U/L (40-129); ALT/SGPT 15 U/L (7.0-40); AST/SGOT 56 U/L (<34); BILIRUBIN,DIRECT 0.1 MG/DL (<0.4); BILIRUBIN,TOTAL 0.3 MG/DL (0.3-1.2); BLOOD UREA NITROGEN 25 MG/DL (9-23); C REACTIVE PROTEIN QUANTITATIV 2.04 MG/DL (<1.0); CALCIUM LEVEL 8.5 MG/DL (8.3-10.6); CARBON DIOXIDE LEVEL 24 MMOL/L (20-31); CHLORIDE LEVEL 100 MMOL/L (98-107); CREATININE FOR GFR 1.05 MG/DL (0.70-1.30); GLOMERULAR FILTRATION RATE > 60.0 (>49); GLUCOSE, FASTING 122 MG/DL (74-106); POTASSIUM SERUM 4.4 MMOL/L (3.5-5.1); SODIUM LEVEL 133 MMOL/L (136-145); TOTAL PROTEIN 5.7 G/DL (5.7-8.2)
[2025-01-29 15:23] LABS: INR 0.96; PARTIAL THROMBOPLASTIN TIME 31.1 SECONDS (24.8-34.2)
[2025-01-29 15:24] LABS: PROCALCITONIN 0.12 ng/ml
[2025-01-29 15:32] LABS: D-DIMER QUANT > 20.00 ug/mL (<0.5)
[2025-01-29 15:42] LABS: CPK CREATINE PHOSPHOKINASE 445 U/L (46-171)
[2025-01-29 16:09] LABS: MB/CK RELATIVE INDEX 0.23 (< OR =4)
[2025-01-29] MEDS: dexAMETHasone 20MG/5ML VIAL IV ONE (17:36)
[2025-01-29] MEDS ORDERED: PROHANCE 279.3MG/ML 15ML VIAL As Ordered ONE (18:09)
[2025-01-29] MEDS ORDERED: OXYC10TA12 PO (18:10)
[2025-01-29] MEDS ORDERED: OXYC20TA64 PO (18:10)
[2025-01-29] MEDS ORDERED: DEXA4TA PO (18:10)
[2025-01-29] MEDS ORDERED: HOME MED LIST COMPLETE! XX SCH (18:15)
[2025-01-30 02:30] VITALS: BP 127/67; TEMP 97.3; O2SAT 99
[2025-01-30 05:03] VITALS: BP 127/67; TEMP 97.3; O2SAT 99
[2025-01-30] MEDS ORDERED: predniSONE 10MG TAB PO SCH (09:00)
[2025-01-30] MEDS ORDERED: dexAMETHasone 4 MG TAB PO SCH (09:00)
[2025-01-30 09:20] LABS: BASO % 0.3 % (0.0-1.0); EOS % 0.3 % (0.0-3.0); HEMATOCRIT 25.6 % (42.0-52.0); LYMPH # 0.3 10^3/uL (1.5-5.0); LYMPH % 7.4 % (24.0-44.0); MEAN CORPUSCULAR HEMOGLOBIN 30.5 pg (27.0-33.0); MEAN CORPUSCULAR VOLUME 89.8 fl (80.0-96.0); MONO # 0.3 10^3/uL (0.0-0.8); MONO % 8.5 % (2.0-8.0); NEUTROPHILS # 3.1 10^3/uL (1.5-8.5); RED BLOOD COUNT 2.85 10^6/uL (4.30-6.10); WHITE BLOOD COUNT 3.8 10^3/uL (4.0-10.0)
[2025-01-30 09:31] LABS: HEMOGLOBIN 8.7 g/dl (13.5-17.5); PLATELET COUNT, AUTOMATED 71 10^3/uL (150-450)
[2025-01-30] MEDS: SENOKOT S TAB PO SCH (09:39)
[2025-01-30] MEDS: dexAMETHasone 4 MG TAB PO SCH (09:39)
[2025-01-30] MEDS: MELOXICAM (MOBIC) 7.5 MG TAB PO SCH (09:39)
[2025-01-30] MEDS: oxyCODONE 20MG CR TAB PO SCH (09:40)
[2025-01-30] MEDS: MORPHINE 4 MG/ML 1ML VIAL IV PRN (09:53)
[2025-01-30] MEDS: oxyCODONE 5MG TAB PO PRN (15:59)
[2025-01-30 20:20] VITALS: BP 126/67; TEMP 97.2; O2SAT 96
[2025-01-30] MEDS: MULTIVITAMINS/MINERALS THERAP 1 TAB PO SCH (22:11)
[2025-01-30] MEDS: FERROUS SULFATE 325MG TAB PO SCH (22:12)
[2025-01-30] MEDS: ASCORBIC ACID 500 MG TAB PO SCH (22:12)
[2025-01-31 03:50] VITALS: BP 126/67; TEMP 97; O2SAT 98
[2025-01-31 08:38] LABS: BASO % 0.3 % (0.0-1.0); EOS % 1.2 % (0.0-3.0); HEMATOCRIT 24.8 % (42.0-52.0); HEMOGLOBIN 8.6 g/dl (13.5-17.5); LYMPH # 0.4 10^3/uL (1.5-5.0); LYMPH % 12.9 % (24.0-44.0); MEAN CORPUSCULAR HEMOGLOBIN 31.3 pg (27.0-33.0); MEAN CORPUSCULAR HGB CONC 34.7 g/dl (32.0-36.5); MEAN CORPUSCULAR VOLUME 90.2 fl (80.0-96.0); MONO # 0.3 10^3/uL (0.0-0.8); MONO % 9.1 % (2.0-8.0); NEUTROPHILS # 2.6 10^3/uL (1.5-8.5); NEUTROPHILS % 75.3 % (36.0-66.0); RED BLOOD COUNT 2.75 10^6/uL (4.30-6.10); WHITE BLOOD COUNT 3.4 10^3/uL (4.0-10.0)
[2025-01-31 08:42] LABS: PLATELET COUNT, AUTOMATED 67 10^3/uL (150-450)
[2025-01-31 09:03] LABS: ALBUMIN 2.8 G/DL (3.2-5.2); ALKALINE PHOSPHATASE 118 U/L (40-129); ALT/SGPT 13 U/L (7.0-40); AST/SGOT 45 U/L (<34); BILIRUBIN,TOTAL 0.5 MG/DL (0.3-1.2); BLOOD UREA NITROGEN 22 MG/DL (9-23); CALCIUM LEVEL 8.3 MG/DL (8.3-10.6); CARBON DIOXIDE LEVEL 23 MMOL/L (20-31); CHLORIDE LEVEL 104 MMOL/L (98-107); CREATININE FOR GFR 0.79 MG/DL (0.70-1.30); GLOMERULAR FILTRATION RATE > 60.0 (>49); GLUCOSE, FASTING 85 MG/DL (74-106); POTASSIUM SERUM 3.9 MMOL/L (3.5-5.1); SODIUM LEVEL 136 MMOL/L (136-145); TOTAL PROTEIN 5.7 G/DL (5.7-8.2)
[2025-01-31 11:29] VITALS: BP 125/69; TEMP 97.5; O2SAT 99
[2025-01-31 20:20] VITALS: BP 136/76; TEMP 97.3; O2SAT 97
[2025-01-31 20:27] VITALS: BP 137/76
[2025-02-01] MEDS ORDERED: BISACODYL 10MG SUPP PR PRN (03:10)
[2025-02-01] MEDS: MOM 30ML SUSPENSION UDC PO PRN (03:28)
[2025-02-01 03:50] VITALS: BP 126/73; TEMP 97.3; O2SAT 97
[2025-02-01] MEDS: DOCUSATE SODIUM 100MG CAPSULE PO SCH (08:33)
[2025-02-01] MEDS: MIRALAX *UNIT DOSE* 17GM PACKET PO SCH (08:34)
[2025-02-01] MEDS ORDERED: ATROPINE SULFATE 1% OPHTH SOLN 2ML BTL SL PRN ×2 (10:55→16:55)
[2025-02-01] MEDS ORDERED: ONDANSETRON 4MG ORAL DISINTEGRATING TAB PO PRN (10:55)
[2025-02-01] MEDS: CYCLOBENZAPRINE 5MG TABLET PO PRN (11:14)
[2025-02-01] MEDS: BISACODYL 10MG SUPP PR SCH (11:46)
[2025-02-01 12:46] VITALS: BP 125/61; TEMP 98.1; O2SAT 90
[2025-02-01] MEDS: FLEET OIL RETENTION ENEMA PR SCH ×2 (14:58→22:01)
[2025-02-01] MEDS ORDERED: MORPHINE 10MG/0.5ML ORAL CONCENTRATE SOLUTION U/D SL PRN (16:55)
[2025-02-01] MEDS ORDERED: LORazepam 1 MG TAB PO PRN (16:55)
[2025-02-01] MEDS ORDERED: HYOSCYAMINE SULFATE 0.125 MG SUBL TABLET PO PRN (16:55)
[2025-02-01] MEDS: MORPHINE 10MG/0.5ML ORAL CONCENTRATE SOLUTION U/D SL PRN (18:11)
[2025-02-01] MEDS: SENNA 8.6 MG TAB (SENOKOT) PO SCH (22:01)
[2025-02-01] MEDS: MORPHINE SULFATE TAB EXT REL 30 MG PO SCH (22:02)
[2025-02-02] MEDS: dexAMETHasone 2 MG TAB PO SCH (08:14)
[2025-02-02] MEDS: MORPHINE SULFATE TAB EXT REL 30 MG PO SCH (22:15)
[2025-02-03] MEDS: NYSTATIN 100,000 UNITS/GM TOPICAL PWD 15GM TOP SCH (03:19)
[2025-02-08] MEDS: MORPHINE SULFATE TAB EXT REL 30 MG PO SCH (20:36)
[2025-02-09] MEDS: dexAMETHasone 4 MG TAB PO SCH (07:57)
[2025-02-10] MEDS ORDERED: BISA10SU PR (09:06)
[2025-02-10] MEDS ORDERED: DOCU8.6T PO (09:06)
[2025-02-10] MEDS ORDERED: CYCL5TAB4 PO (09:06)
[2025-02-10] MEDS ORDERED: DEXA4TA PO (09:06)
[2025-02-10] MEDS ORDERED: ONDA-282 PO (09:06)
[2025-02-10] MEDS ORDERED: MIRA33506 PO (09:06)
[2025-02-10] MEDS ORDERED: ATIV1TAB10 PO (09:12)
[2025-02-10] MEDS ORDERED: HYOS125TA PO (09:12)
[2025-02-10] MEDS ORDERED: MORP30TASA PO (09:12)
[2025-02-10] MEDS ORDERED: MORP1SOL5 PO (09:12)
[2025-02-10] MEDS ORDERED: ATRO2DRO4 SL (09:15)
== END 2025-02-10 11:10 | disposition home or self-care (01) | DRG 55 ==
LOC: EDBD 13:04 → M ED 13:04 → M ED INP 22:20 → M MSPAV 01-30 02:11
PROVIDERS: ADMIT Internal Medicine; ATTEND Internal Medicine Nephrology
PROC: 30233N1 Transfusion of Nonautologous Red Blood Cells into Peripheral Vein, Percutaneous Approach (ICD-10-PCS; principal; 2025-01-29)
DX: C79.49 Secondary malignant neoplasm of other parts of nervous system (principal); D61.818 Other pancytopenia; N30.41 Irradiation cystitis with hematuria; G83.4 Cauda equina syndrome; C79.51 Secondary malignant neoplasm of bone; C61 Malignant neoplasm of prostate; I10 Essential (primary) hypertension; R33.9 Retention of urine, unspecified; G89.3 Neoplasm related pain (acute) (chronic); Z51.5 Encounter for palliative care; Z66 Do not resuscitate; Z79.52 Long term (current) use of systemic steroids; Z79.891 Long term (current) use of opiate analgesic; Z79.899 Other long term (current) drug therapy; Z92.3 Personal history of irradiation

== ENCOUNTER 2025-02-04 09:45 | Outpatient (RCR) | payer MEDICARE, MEDICAID ==
[~2025-02-04 09:45] MED LIST changes: +OXYC20TA64 PO
[2025-02-10] MEDS ORDERED: BISA10SU PR (09:06)
[2025-02-10] MEDS ORDERED: ONDA-282 PO (09:06)
[2025-02-10] MEDS ORDERED: DOCU8.6T PO (09:06)
[2025-02-10] MEDS ORDERED: MIRA33506 PO (09:06)
[2025-02-10] MEDS ORDERED: DEXA4TA PO (09:06)
[2025-02-10] MEDS ORDERED: CYCL5TAB4 PO (09:06)
[2025-02-10] MEDS ORDERED: MORP30TASA PO (09:12)
[2025-02-10] MEDS ORDERED: HYOS125TA PO (09:12)
[2025-02-10] MEDS ORDERED: ATIV1TAB10 PO (09:12)
[2025-02-10] MEDS ORDERED: MORP1SOL5 PO (09:12)
[2025-02-10] MEDS ORDERED: ATRO2DRO4 SL (09:15)
== END 2025-02-14 ==
LOC: M ONCR 09:45
PROVIDERS: ATTEND General Practice
DX: Z51.0 Encounter for antineoplastic radiation therapy (principal); C79.51 Secondary malignant neoplasm of bone